=== PATIENT | female | born 1965 ===

== ENCOUNTER 2016-07-02 20:42 | Emergency (ER) | payer SELFPAY ==
[2016-07-02 20:42] VITALS: BMI 21.5
[2016-07-02 21:09] VITALS: BP 132/84; PULSE 63; RESP 16; TEMP 98.2; O2SAT 100
--- NOTE | 2016-07-02 21:28 | ED PDOC ---
Lower Extremity Pain/Injury Time Seen by Provider: 07/02/16 21:15 Chief Complaint (Nursing): Lower Extremity Problem/Injury Chief Complaint (Provider): right knee pain History Per: Patient History/Exam Limitations: no limitations Onset/Duration Of Symptoms: Days (x 1 year ) Current Symptoms Are (Timing): Still Present Additional Complaint(s): Camille Phan is a 50 year old female, with a previous medical history of chronic knee pain, who presents to the ED with complaints of right knee pain intermittently ongoing for the past year. Pt reports to increasing her walking lately through work. Pt denies any trauma to the knee, numbness or weakness. Pt denies any additional complaints. Pt states to taking motrin in the AM today which helped alleviate the symptoms. Pt states last ED visit she received naproxen which she stated helped. PMD: none provided Past Medical History Reviewed: Historical Data, Nursing Documentation, Vital Signs Vital Signs: Last Vital Signs Temp 98.2 F 07/02/16 21:06 Pulse 63 07/02/16 21:06 Resp 16 07/02/16 21:06 BP 132/84 07/02/16 21:06 Pulse Ox 100 07/02/16 21:06 - Medical History PMH: Denies: Arthritis, Asthma, Atrial Fibrillation, CHF, COPD, HIV, HTN, Hypercholesterolemia, Chronic Kidney Disease, Seizures - Surgical History Surgical History: Denies: CABG, Pacemaker - Family History Family History: States: Unknown Family Hx Denies: CAD - Home Medications Home Medications: Ambulatory Orders Medication Instructions Recorded Diclofenac 50 mg PO Q8 05/01/16 Metoprolol Succinate [Toprol XL] 25 mg PO DAILY #30 tab 05/03/16 Naproxen [Naprosyn Tab] 375 mg PO Q8 PRN #15 tab 07/02/16 Tramadol HCl [Ultram] 50 mg PO Q6 PRN #6 tablet 07/02/16 - Allergies Allergies/Adverse Reactions: Allergies Allergy/AdvReac Type Severity Reaction Status Date / Time No Known Allergies Allergy Verified 07/02/16 21:06 Review of Systems ROS Statement: Except As Marked, All Systems Reviewed And Found Negative Musculoskeletal: Positive for: Leg Pain (right knee pain ) Neurological: Negative for: Numbness, Other (tingling ) Physical Exam - Reviewed Nursing Documentation Reviewed: Yes Vital Signs Reviewed: Yes - Physical Exam Appears: Positive for: Well, Non-toxic, No Acute Distress Extremity: Positive for: Normal ROM, Capillary Refill (< 2 seconds ), Other ( mild effusion noted of the right knee ). Negative for: Calf Tenderness, Deformity (or ecchymosis ) Neurologic/Psych: Positive for: Alert, Oriented - ECG O2 Sat by Pulse Oximetry: 100 (RA) Pulse Ox Interpretation: Normal Medical Decision Making Medical Decision Making: Initial Impression: arthritis Initial Plan: * toradol * reevaluation Scribe Attestation: Documented by Oanh Santillan, acting as a scribe for Quincy Wang PA-C. Provider Scribe Attestation: All medical record entries made by the Scribe were at my direction and personally dictated by me. I have reviewed the chart and agree that the record accurately reflects my personal performance of the history, physical exam, medical decision making, and the department course for this patient. I have also personally directed, reviewed, and agree with the discharge instructions and disposition. Disposition - Clinical Impression Clinical Impression: Arthralgia of knee - Patient ED Disposition Is Patient to be Admitted: No - Disposition Disposition: Routine/Home Disposition Time: 21:55 Condition: FAIR Prescriptions: Naproxen [Naprosyn Tab] 375 mg PO Q8 PRN #15 tab PRN Reason: Pain, Moderate (4-7) Tramadol HCl [Ultram] 50 mg PO Q6 PRN #6 tablet PRN Reason: Pain, Severe (8-10) Instructions: Arthritis (ED) Forms: [facility] ED School/Work Excuse Print Language: BELGIAN
== END 2016-07-02 22:31 | disposition home or self-care (01) ==
LOC: H.ER 20:42
DX: M25.561 Pain in right knee (principal)

== ENCOUNTER 2016-08-16 10:14 | Inpatient (IN) | payer SELFPAY ==
[2016-08-16 10:23] VITALS: BMI 36.6
--- NOTE | 2016-08-16 11:03 | ED PDOC ---
HPI: Abdomen Time Seen by Provider: 08/16/16 10:38 Chief Complaint (Nursing): Abdominal Pain Chief Complaint (Provider): abdominal pain History Per: Patient History/Exam Limitations: no limitations Location Of Pain/Discomfort: Suprapubic Quality Of Discomfort: Burning Associated Symptoms: Urinary Symptoms. denies: Nausea, Vomiting, Diarrhea, Back Pain Exacerbating Factors: None Alleviating Factors: None Additional Complaint(s): 50yo female c/o lower central abdominal pain for a week, associated with urinary urgency and dysuria, denies fever, back pain or N/V/D. Past Medical History Reviewed: Historical Data, Nursing Documentation, Vital Signs Vital Signs: Last Vital Signs Temp 97.7 F 08/19/16 07:30 Pulse 68 08/19/16 09:03 Resp 18 08/19/16 07:30 BP 131/81 08/19/16 09:03 Pulse Ox 98 08/19/16 07:30 - Medical History PMH: Cardia Arrhythmia Denies: Arthritis, Asthma, Atrial Fibrillation, CHF, COPD, HIV, HTN, Hypercholesterolemia, Chronic Kidney Disease, Seizures - Surgical History Surgical History: Denies: CABG, Pacemaker - Family History Family History: States: Unknown Family Hx Denies: CAD - Home Medications Home Medications: Ambulatory Orders Medication Instructions Recorded Metoprolol Succinate [Toprol XL] 25 mg PO DAILY #30 tab 05/03/16 Ciprofloxacin [Cipro] 500 mg PO Q12 #14 tab 08/19/16 Metronidazole [Flagyl] 500 mg PO Q8 #21 tablet 08/19/16 - Allergies Allergies/Adverse Reactions: Allergies Allergy/AdvReac Type Severity Reaction Status Date / Time No Known Allergies Allergy Verified 08/16/16 10:43 Review of Systems ROS Statement: Except As Marked, All Systems Reviewed And Found Negative Respiratory: Negative for: Cough, Shortness of Breath Gastrointestinal: Positive for: Abdominal Pain. Negative for: Vomiting Genitourinary Female: Positive for: Dysuria, Frequency. Negative for: Vaginal Bleeding Musculoskeletal: Negative for: Neck Pain, Arm Pain Skin: Negative for: Rash, Lesions, Jaundice Neurological: Negative for: Weakness, Numbness, Headache Physical Exam - Reviewed Nursing Documentation Reviewed: Yes Vital Signs Reviewed: Yes - Physical Exam Appears: Positive for: Well, Non-toxic, No Acute Distress Head Exam: Positive for: ATRAUMATIC, NORMAL INSPECTION, NORMOCEPHALIC Skin: Positive for: Normal Color, Warm, DRY Eye Exam: Positive for: EOMI, Normal appearance, PERRL ENT: Positive for: Normal ENT Inspection Neck: Positive for: Normal, Painless ROM Cardiovascular/Chest: Positive for: Regular Rate, Rhythm Respiratory: Positive for: CNT, Normal Breath Sounds Gastrointestinal/Abdominal: Positive for: Bowel Sounds, Soft, Tenderness (mild suprapubic tenderness no RLQ or LLQ tenderness) Back: Positive for: Normal Inspection Extremity: Positive for: Normal ROM Neurologic/Psych: Positive for: Alert, Oriented. Negative for: Motor/Sensory Deficits - Laboratory Results Result Diagrams: 08/19/16 06:30 08/18/16 05:30 - ECG O2 Sat by Pulse Oximetry: 97 Pulse Ox Interpretation: Normal Medical Decision Making Medical Decision Making: Denies hx DM. Check UA/Ucx. US did not demonstrate significant infection thus labs and imaging initiated. Disposition - Clinical Impression Clinical Impression: Diverticulitis - Disposition Disposition Time: 19:00 Condition: STABLE Patient Signed Over To: Breezy Sanchez Handoff Comments: pending CT abd pelv and dispo
[2016-08-16 11:52] LABS: RBC URINE 5 /hpf (0-3); URINE BACTERIA RARE (<OCC); URINE BILIRUBIN NEGATIVE (NEGATIVE); URINE BLOOD NEGATIVE (NEGATIVE); URINE COLOR YELLOW (YELLOW); URINE GLUCOSE (UA) NEG (Normal); URINE KETONE NEGATIVE (NEGATIVE); URINE LEUKOCYTE ESTERASE TRACE Leu/uL (Negative); URINE PROTEIN NEGATIVE (NEGATIVE); URINE UROBILINOGEN 0.2-1.0 mg/dL (0.2-1.0); WBC URINE 1 /hpf (0-5)
[2016-08-16 13:02] LABS: BASO % 0.3 % (0.0-2.0); EOS # 0.6 K/uL (0.0-0.7); EOS % 4.3 % (0.0-4.0); HEMATOCRIT 39.2 % (34.0-47.0); LYMPH # 2.3 K/uL (1.0-4.3); MEAN CELL VOLUME 90.3 fl (81.0-99.0); MEAN CORPUSCULAR HEMOGLOBIN 29.9 pg (27.0-31.0); MEAN CORPUSCULAR HGB CONC 33.1 g/dL (33.0-37.0); MEAN PLATELET VOLUME 7.9 fl (7.2-11.7); MONO # 1.1 K/uL (0.0-0.8); MONO % 7.9 % (0.0-10.0); NEUT # 9.6 K/uL (1.8-7.0); NEUT % 70.5 % (50.0-75.0); NRBC % 0.1 % (0.0-0.0); RED CELL DISTRIBUTION WIDTH 13.4 % (11.5-14.5); WHITE BLOOD COUNT 13.6 K/uL (4.8-10.8)
[2016-08-16 13:12] LABS: ALKALINE PHOSPHATASE 144 U/L (38-126); ALT/SGPT 54 U/L (9-52); AST/SGOT 40 U/L (14-36); BILIRUBIN,TOTAL 0.3 mg/dl (0.2-1.3); BLOOD UREA NITROGEN 15 mg/dl (7-17); CALCIUM 9.2 mg/dL (8.4-10.2); CARBON DIOXIDE 25 mmol/L (22-30); CHLORIDE 107 mmol/L (98-107); GFR AFRICAN-AMERICAN > 60; GLUCOSE,RANDOM 123 mg/dL (65-105); POTASSIUM 4.1 MMOL/L (3.6-5.0); SODIUM 142 mmol/l (132-148); TOTAL PROTEIN 8.1 G/DL (6.3-8.2)
[2016-08-16] MEDS ORDERED: Sodium Chloride 0.9% 1,000 ML IV STA (16:30)
--- NOTE | 2016-08-16 16:58 | US ---
PROCEDURE: Pelvic ultrasound dated 08/16/2016. HISTORY: pelvic pain COMPARISON: Comparison made with prior study dated 12/18/2015. TECHNIQUE: Transabdominal/transvaginal sonographic evaluation of the pelvis performed. FINDINGS: The uterus is anteverted measuring approximately 4.7 x 3.7 x 2.1 cm. No myometrial masses. Endometrial stripe measures 3.6 mm. There is a hyperechoic focus within the endometrium that measures 1.1 x 0.61 x 0.23 cm of uncertain etiology though does not demonstrate any discernible Doppler flow. While this could represent residual clot if patient is currently menstruating, other possibilities including endometrial polyp, endometrial hyperplasia versus endometrial carcinoma should be excluded. . There may also be a small amount of endometrial fluid within the fundal aspect of the endometrial canal Clinical correlation recommended. INFORMATION SYSTEMS ADMINISTRATOR consultation also suggested. Few small of cervical nabothian cysts are present. No gross free fluid seen in the cul de sac. Neither ovary visualized on this study. IMPRESSION: Elliptical shaped echogenic focus within the endometrial canal of uncertain etiology. This could represent clot if patient is currently menstruating however possibility of endometrial hyperplasia, endometrial polyp or endometrial carcinoma to be excluded. Clinical correlation recommended. . Trench Pipe Layer Helper consultation is recommended
[2016-08-16] MEDS ORDERED: Sodium Chloride 0.9% 50 ML IV ONE (17:19)
[2016-08-16] MEDS ORDERED: Iohexol 300 100 ML IJ ONE (17:19)
--- NOTE | 2016-08-16 19:41 | CT ---
EXAM: CT Abdomen and Pelvis With Intravenous Contrast CLINICAL HISTORY: 50 years old, female; Pain; Abdominal pain; Generalized; Additional info: Lower abd pain, leukocytosis TECHNIQUE: Axial computed tomography images of the abdomen and pelvis with intravenous contrast. This CT exam was performed using one or more of the following dose reduction techniques: automated exposure control, adjustment of the mA and/or kV according to patient size, and/or use of iterative reconstruction technique. Coronal and sagittal reformatted images were created and reviewed. CONTRAST: 95 mL of omnipaque 300 administered intravenously. EXAM DATE/TIME: 08/16/2016 4:30 PM COMPARISON: There are no prior studies for comparison. FINDINGS: Lower thorax: The heart is mildly enlarged. There is atelectasis at the lung bases. There is fibrosis and scarring in the right middle lobe. There is a small hiatal hernia. ABDOMEN: Liver: There is fatty infiltration of the liver. The liver is enlarged. Gallbladder and bile ducts: unremarkable Pancreas: Pancreas is mildly atrophic Spleen: unremarkable Adrenals: unremarkable Kidneys and ureters: There is a left renal cyst. 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 There is a low attenuation right renal lesion too small to characterize. Right kidney is otherwise unremarkable. There is no pelvocaliectasis or ureterectasis. Stomach and bowel: Stomach is incompletely distended. Rotation is normal. There is no small bowel obstruction. Terminal ileum is unremarkable.Colon is incompletely distended which limits evaluation. Motion and streak limit evaluation of the colon. There is diverticulosis. There is sigmoid diverticulitis. There is a 2 x 1.5 x 2 cm low attenuation lesion in the sigmoid wall with mild peripheral enhancement. Appendix: See stomach and bowel PELVIS: Bladder: unremarkable Reproductive: Uterus and adnexal structures are unremarkable. ABDOMEN and PELVIS: Intraperitoneal space: There is no free air. There is edema and fluid in the midline of the pelvis and left lower quadrant. Bones/joints: There are degenerative changes in the osseus structures. There is a bone island in L2. Soft tissues: There is a tiny fat containing umbilical hernia Vasculature: There are calcified phleboliths. Vascular structures are unremarkable. Lymph nodes: unremarkable IMPRESSION: Sigmoid diverticulitis with intramural abscess, no free air; enlarged fatty liver Additional findings as described above.
[2016-08-16] MEDS ORDERED: metroNIDAZOLE 500mg/100ml NS 100 ML IVPB STA (19:48)
[2016-08-16] MEDS ORDERED: Ciprofloxacin 400mg/200ml D5W 400 MG/200 ML BAG IV STA (19:48)
[2016-08-16] MEDS ORDERED: metroNIDAZOLE 500mg/100ml NS 100 ML IVPB ONE (20:09)
--- NOTE | 2016-08-16 20:12 | ED PDOC ---
- Laboratory Results Result Diagrams: 08/16/16 12:30 08/16/16 12:30 - ECG O2 Sat by Pulse Oximetry: 97 (RA) Pulse Ox Interpretation: Normal - CT Scan/US CT Abdomen & Pelvis w/ IV Contrast Other Rad Studies (CT/US): Interpreted By Me, Read By Radiologist, Radiology Report Reviewed Medical Decision Making Medical Decision Makin:00 Patient transferred over to provider from Dr. Baker. Pending CT Abdomen & Pelvis. 19:41 CT Abdomen & Pelvis w/ IV Contrast FINDINGS: Lower thorax: The heart is mildly enlarged. There is atelectasis at the lung bases. There is fibrosis and scarring in the right middle lobe. There is a small hiatal hernia. ABDOMEN: Liver: There is fatty infiltration of the liver. The liver is enlarged. Gallbladder and bile ducts: Unremarkable. Pancreas: Pancreas is mildly atrophic. Spleen: Unremarkable. Adrenals: Unremarkable. Kidneys and ureters: There is a left renal cyst. 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 There is a low attenuation right renal lesion too small to characterize. Right kidney is otherwise unremarkable. There is no pelvocaliectasis or ureterectasis. Stomach and bowel: Stomach is incompletely distended. Rotation is normal. There is no small bowel obstruction. Terminal ileum is unremarkable. Colon is incompletely distended which limits evaluation. Motion and streak limit evaluation of the colon. There is diverticulosis. There is sigmoid diverticulitis. There is a 2 x 1.5 x 2 cm low attenuation lesion in the sigmoid wall with mild peripheral enhancement. Appendix: See stomach and bowel. PELVIS: Bladder: Unremarkable. Reproductive: Uterus and adnexal structures are unremarkable. ABDOMEN and PELVIS: Intraperitoneal space: There is no free air. There is edema and fluid in the midline of the pelvis and left lower quadrant. Bones/joints: There are degenerative changes in the osseus structures. There is a bone island in L2. Soft tissues: There is a tiny fat containing umbilical hernia. Vasculature: There are calcified phleboliths. Vascular structures are unremarkable. Lymph nodes: Unremarkable. IMPRESSION: Sigmoid diverticulitis with intramural abscess, no free air; enlarged fatty liver. Additional findings as described above. Initial Plan: * Lact Acid, Plasma * Cipro 400 mg/200 ml DSW * Flagyl 500 mg/100 ml NS * Blood Culture * Reevaluation 19:56 Upon provider reevaluation, patient requires further treatment in the emergency department at this time. Patient will be admit and worked up for diverticulitis. Lact acid, plasma and a blood culture was ordered, along with a prescription for Cipro and Flagyl. Counseling was provided and all questions were answered regarding studies performed and diagnosis. Patient is in agreement with provider's plan. Clinical Impression: Diverticulitis 22:50 Spoke to surgical technologist, Dr. Park, for surgical consultation. Scribe Attestation: Documented by Sebastian Marks, acting as a scribe for Breezy Sanchez MD. Provider Scribe Attestation: All medical record entries made by the Scribe were at my direction and personally dictated by me. I have reviewed the chart and agree that the record accurately reflects my personal performance of the history, physical exam, medical decision making, and the department course for this patient. I have also personally directed, reviewed, and agree with the discharge instructions and disposition. Disposition Discussed With : Donna Huber ([facility] Doctor Will See Patient In The: ED Counseled Patient/Family Regarding: Studies Performed, Diagnosis, Rx Given - Clinical Impression Clinical Impression: Diverticulitis - POA Present On Arrival: None - Disposition Disposition: Admitted as In-Patient Disposition Time: 19:57 Condition: STABLE
--- NOTE | 2016-08-16 20:28 | CP.PCM.HP ---
History of Present Illness - History of Present Illness History of Present Illness: pt is a 50 y/o obese female with pmhx of supraventricular tachycardia (on metroprolol) presenting to ED with complaints of abdominal pain for the past about a week with associated dyusria and frequency. Denies any associated nausea , vomiting, diarrhea, chest pain, sob or dizziness. pt reports pain is mainly focused on her lower portion of her abdomen and does not radiate any where else , its waxes and wanes but does not completely resolve with anything. Denies any fever, but reports feeling chilly now. No other complaints otherwise Present on Admission - Present on Admission Any Indicators Present on Admission: No Review of Systems - Review of Systems All systems: reviewed and no additional remarkable complaints except Review of Systems: per HPI Past Patient History - Past Medical History & Family History Past Medical History?: Yes - Past Social History Smoking Status: Never Smoked - CARDIAC Hx Atrial Fibrillation: No Hx Cardia Arrhythmia: Yes Hx Congestive Heart Failure: No Hx Hypercholesterolemia: No Hx Hypertension: No Hx Pacemaker: No - PULMONARY Hx Asthma: No Hx Chronic Obstructive Pulmonary Disease (COPD): No - NEUROLOGICAL Hx Seizures: No - HEENT Hx HEENT Problems: No - RENAL Hx Chronic Kidney Disease: No - ENDOCRINE/METABOLIC Hx Endocrine Disorders: No - HEMATOLOGICAL/ONCOLOGICAL Hx Human Immunodeficiency Virus (HIV): No - INTEGUMENTARY Hx Dermatological Problems: No - MUSCULOSKELETAL/RHEUMATOLOGICAL Hx Arthritis: No - GASTROINTESTINAL Hx Gastrointestinal Disorders: No - GENITOURINARY/GYNECOLOGICAL Hx Genitourinary Disorders: No - PSYCHIATRIC Hx Substance Use: No - SURGICAL HISTORY Hx Coronary Artery Bypass Graft: No - ANESTHESIA Hx Anesthesia: Yes Hx Anesthesia Reactions: No Meds Allergies/Adverse Reactions: Allergies Allergy/AdvReac Type Severity Reaction Status Date / Time No Known Allergies Allergy Verified 08/16/16 10:43 Physical Exam - Constitutional Appears: Non-toxic, No Acute Distress - Head Exam Head Exam: NORMOCEPHALIC - Eye Exam Eye Exam: Normal appearance, PERRL Pupil Exam: NORMAL ACCOMODATION - ENT Exam ENT Exam: Mucous Membranes Moist - Respiratory Exam Respiratory Exam: Clear to Auscultation Bilateral, NORMAL BREATHING PATTERN. absent: Rhonchi, Wheezes - Cardiovascular Exam Cardiovascular Exam: REGULAR RHYTHM, +S1, +S2 - GI/Abdominal Exam GI & Abdominal Exam: Guarding, Normal Bowel Sounds, Soft, Tenderness. absent: Distended, Pulsatile Mass - Extremities Exam Extremities exam: Negative for: calf tenderness, pedal edema - Back Exam Back exam: absent: CVA tenderness (L), CVA tenderness (R) - Neurological Exam Neurological exam: Alert, CN II-XII Intact, Oriented x3 Results - Vital Signs Recent Vital Signs: Last Vital Signs Temp 98.7 F 08/16/16 20:13 Pulse 96 H 08/16/16 20:13 Resp 20 08/16/16 20:13 BP 115/57 L 08/16/16 20:13 Pulse Ox 97 08/16/16 20:27 - Labs Result Diagrams: 08/16/16 12:30 08/16/16 12:30 Assessment & Plan - Assessment and Plan (Free Text) Assessment: Pt is a 50 y/o female with history of PSVT being admitted for acute diverticulitis, first episode. does not have a previous history of diverticulosis Plan: Acute Sigmoid Diverticulitis CT scan shows evidence of sigmoid diverticulitis as well as 2 x1.5X2cm enhancing lesion in the sigmoid wall for which radiologist suspect is an abscess in sigmoid wall If no improved in pt sympotms in 48hours recommend surgery vs GI consult Currently on Cipro plus Flagyl antibiotic Zofran for nausea tylenol for fever pain management as ordered f/u blood and urine culture f/u Am labs 2. PSVT resumed home medication: metroprolol 25mg daily 3. Diet- heart healthy 5. DVT prophylaxis- Lovenox 40mg SC
[2016-08-16] MEDS ORDERED: Ciprofloxacin 400mg/200ml D5W 400 MG/200 ML BAG IVPB ONE (21:18)
[2016-08-16] MEDS: metroNIDAZOLE 500mg/100ml NS 100 ML IVPB SCH (21:35)
[2016-08-16] MEDS: Ciprofloxacin 400mg/200ml D5W 400 MG/200 ML BAG IVPB SCH (21:35)
--- NOTE | 2016-08-16 23:35 | CP.PCM.CON ---
<Amisha Park - Last Filed: 08/16/16 23:30> History of Present Illness - History of Present Illness History of Present Illness: General Surgery - Dr. Torres Consult Re: Diverticulitis 50 F w/ hx of SVT presenting w/ suprapubic abdominal pain x1week. Pt states the pain began approx 1 week ago, located in the suprapubic region, non- radiating, 12/01. She states the pain is worse with ambulation and when she urinates. She also admits to Fevers at home but states she did not take her temperature, currently pt. complains of chills. Pt denies any N/V, SOB/CP, Hematuria, Hematochezia. She has been eating normal and having regular BMs. Pt states this is the first time she's ever experienced this pain. PMH: SVT PSH: x2 Meds: Metoprolol NKDA Pt was seen in the ED. Vitals WNL. Labs w/ WBC of 13.6, slight elevation of LFTs. CT abd/pelv shows acute sigmoid diverticulitis w/ 2x1.5x2cm intramural abscess. No free air or ascites. Review of Systems - Review of Systems All systems: reviewed and no additional remarkable complaints except (as per HPI ) Past Patient History - Past Medical History & Family History Past Medical History?: Yes - Past Social History Smoking Status: Never Smoked - CARDIAC Hx Atrial Fibrillation: No Hx Cardia Arrhythmia: Yes Hx Congestive Heart Failure: No Hx Hypercholesterolemia: No Hx Hypertension: No Hx Pacemaker: No - PULMONARY Hx Asthma: No Hx Chronic Obstructive Pulmonary Disease (COPD): No - NEUROLOGICAL Hx Seizures: No - HEENT Hx HEENT Problems: No - RENAL Hx Chronic Kidney Disease: No - ENDOCRINE/METABOLIC Hx Endocrine Disorders: No - HEMATOLOGICAL/ONCOLOGICAL Hx Human Immunodeficiency Virus (HIV): No - INTEGUMENTARY Hx Dermatological Problems: No - MUSCULOSKELETAL/RHEUMATOLOGICAL Hx Arthritis: No - GASTROINTESTINAL Hx Gastrointestinal Disorders: No - GENITOURINARY/GYNECOLOGICAL Hx Genitourinary Disorders: No - PSYCHIATRIC Hx Substance Use: No - SURGICAL HISTORY Hx Coronary Artery Bypass Graft: No - ANESTHESIA Hx Anesthesia: Yes Hx Anesthesia Reactions: No Meds Allergies/Adverse Reactions: Allergies Allergy/AdvReac Type Severity Reaction Status Date / Time No Known Allergies Allergy Verified 08/16/16 10:43 - Medications Medications: Current Medications Acetaminophen (Tylenol 325mg Tab) 650 mg PO Q6 PRN PRN Reason: Fever >100.4 F Enoxaparin Sodium (Lovenox) 40 mg SC DAILY [facility] PRN Reason: Protocol Metronidazole (Flagyl 500mg/100ml Ns) 100 mls @ 100 mls/hr IVPB Q12 [facility] Last Admin: 08/16/16 21:35 Dose: Not Given Ciprofloxacin (Cipro 400mg/200ml Dsw) 400 mg in 200 mls @ 200 mls/hr IVPB Q12 [facility] Last Admin: 08/16/16 21:35 Dose: Not Given Sodium Chloride (Sodium Chloride 0.9%) 1,000 mls @ 125 mls/hr IV .Q8H [facility] Stop: 08/17/16 23:19 Ketorolac Tromethamine (Toradol) 15 mg IVP Q6 PRN PRN Reason: Pain, moderate (4-7) Metoprolol Succinate (Toprol Xl) 25 mg PO DAILY [facility] Morphine Sulfate (Morphine) 4 mg IVP Q6 PRN PRN Reason: Pain, severe (8-10) Ondansetron HCl (Zofran Inj) 4 mg IVP Q6 PRN PRN Reason: Nausea/Vomiting Physical Exam - Constitutional Appears: No Acute Distress - Head Exam Head Exam: ATRAUMATIC, NORMAL INSPECTION, NORMOCEPHALIC - Eye Exam Eye Exam: Normal appearance - ENT Exam ENT Exam: Mucous Membranes Moist - Respiratory Exam Respiratory Exam: NORMAL BREATHING PATTERN. absent: Respiratory Distress - Cardiovascular Exam Cardiovascular Exam: REGULAR RHYTHM - GI/Abdominal Exam GI & Abdominal Exam: Guarding (localized), Soft, Tenderness (Localized TTP in suprapubic and LLQ). absent: Distended, Firm, Hernia, Rigid - Neurological Exam Neurological exam: Alert, Oriented x3 - Psychiatric Exam Psychiatric exam: Normal Affect, Normal Mood - Skin Skin Exam: Dry, Intact Results - Vital Signs Recent Vital Signs: Last Vital Signs Temp 98.7 F 08/16/16 20:13 Pulse 96 H 08/16/16 20:13 Resp 20 08/16/16 20:13 BP 115/57 L 08/16/16 20:13 Pulse Ox 97 08/16/16 22:55 - Labs Result Diagrams: 08/16/16 12:30 08/16/16 12:30 Labs: Laboratory Results - last 24 hr 08/16/16 20:00 Lactic Acid 1.3 - Imaging and Cardiology CT scan - abdomen Status: Image reviewed by me, Report reviewed by me Assessment & Plan - Assessment and Plan (Free Text) Assessment: 50 F w/ Acute diverticulitis w/ intramural abscess -Maintain NPO for now -IVF -IV Abx: Cipro/Flagyl -Pain control prn -Recc GI consult as pt will need colonoscopy in future -No surgical intervention at this time -Will follow JIMMY Park PGY2 <Bernardo Torres - Last Filed: 08/19/16 19:07> Results - Vital Signs Recent Vital Signs: Last Vital Signs Temp 97.7 F 08/19/16 07:30 Pulse 68 08/19/16 09:03 Resp 18 08/19/16 07:30 BP 131/81 08/19/16 09:03 Pulse Ox 98 08/19/16 07:30 - Labs Result Diagrams: 08/19/16 06:30 08/18/16 05:30 Labs: Laboratory Results - last 24 hr 08/19/16 06:30 WBC 10.3 RBC 4.40 Hgb 12.9 Hct 39.7 MCV 90.2 MCH 29.3 MCHC 32.5 L RDW 12.8 Plt Count 383 MPV 7.7 Neut % (Auto) 62.0 Lymph % (Auto) 25.5 [place] % (Auto) 7.2 Eos % (Auto) 5.2 H Baso % (Auto) 0.1 Neut # 6.4 Lymph # 2.6 [place] # 0.7 Eos # 0.5 Baso # 0.0 Attending/Attestation - Attestation I have personally seen and examined this patient.: Yes I have fully participated in the care of the patient.: Yes I have reviewed all pertinent clinical information: Yes Notes (Text): 08/19/16 19:06 Pt was seen and examined at bedside on 08/17/16 Agree with above note and assessment Pt with Diverticulitis with Intramural abscess C/w IV antibiotics Serial Abdominal exam Plan d.w pt in detail. C.w current mx
[2016-08-17] MEDS: Sodium Chloride 0.9% 1,000 ML IV SCH ×2 (00:15→09:26)
[2016-08-17 07:49] LABS: BASO % 0.2 % (0.0-2.0); EOS # 0.5 K/uL (0.0-0.7); HEMATOCRIT 36.3 % (34.0-47.0); LYMPH # 2.2 K/uL (1.0-4.3); LYMPH % 18.1 % (20.0-40.0); MEAN CELL VOLUME 89.7 fl (81.0-99.0); MEAN CORPUSCULAR HEMOGLOBIN 29.5 pg (27.0-31.0); MEAN CORPUSCULAR HGB CONC 32.9 g/dL (33.0-37.0); MEAN PLATELET VOLUME 8.1 fl (7.2-11.7); MONO # 1.1 K/uL (0.0-0.8); MONO % 9.4 % (0.0-10.0); NEUT # 8.3 K/uL (1.8-7.0); NEUT % 68.3 % (50.0-75.0); RED CELL DISTRIBUTION WIDTH 13.2 % (11.5-14.5); WHITE BLOOD COUNT 12.2 K/uL (4.8-10.8)
[2016-08-17 08:27] LABS: ALKALINE PHOSPHATASE 111 U/L (38-126); ALT/SGPT 45 U/L (9-52); AST/SGOT 28 U/L (14-36); BILIRUBIN,TOTAL 0.5 mg/dl (0.2-1.3); BLOOD UREA NITROGEN 9 mg/dl (7-17); CALCIUM 8.3 mg/dL (8.4-10.2); CARBON DIOXIDE 24 mmol/L (22-30); CHLORIDE 106 mmol/L (98-107); GFR AFRICAN-AMERICAN > 60; GLUCOSE,RANDOM 129 mg/dL (65-105); POTASSIUM 3.6 MMOL/L (3.6-5.0); SODIUM 140 mmol/l (132-148); TOTAL PROTEIN 7.1 G/DL (6.3-8.2)
[2016-08-17] MEDS: Enoxaparin 40 mg Syringe SC SCH (09:26)
[2016-08-17] MEDS: Metoprolol Succinate 25 mg XL Tab PO SCH (09:26)
[2016-08-17] MEDS: metroNIDAZOLE 500mg/100ml NS 100 ML IVPB SCH ×2 (10:07→21:56)
[2016-08-17] MEDS: Ciprofloxacin 400mg/200ml D5W 400 MG/200 ML BAG IVPB SCH ×2 (10:07→20:45)
--- NOTE | 2016-08-17 14:16 | CP.PCM.PN ---
Subjective - Date & Time of Evaluation Date of Evaluation: 08/17/16 Time of Evaluation: 10:35 - Subjective Subjective: Patient seen and examined at bedside, no acute distress at this time, admitted last night w/ diagnosis of acute diverticulitis. Abdominal pain is improving as per pt, no vomiting or diarrheas while in hospital. Afebrile, + dysuria. ROS: Denies: CP, SOB, palpitations, dizziness. Objective - Vital Signs/Intake and Output Vital Signs (last 24 hours): Temp Pulse Resp BP Pulse Ox 98.3 F 74 18 101/64 96 08/17/16 12:39 08/17/16 12:39 08/17/16 12:39 08/17/16 12:39 08/17/16 12:39 - Medications Medications: Current Medications Acetaminophen (Tylenol 325mg Tab) 650 mg PO Q6 PRN PRN Reason: Fever >100.4 F Enoxaparin Sodium (Lovenox) 40 mg SC DAILY [facility] PRN Reason: Protocol Last Admin: 08/17/16 09:26 Dose: 40 mg Metronidazole (Flagyl 500mg/100ml Ns) 100 mls @ 100 mls/hr IVPB Q12 [facility] Last Admin: 08/17/16 10:07 Dose: 100 mls/hr Ciprofloxacin (Cipro 400mg/200ml Dsw) 400 mg in 200 mls @ 200 mls/hr IVPB Q12 [facility] Last Admin: 08/17/16 10:07 Dose: 200 mls/hr Sodium Chloride (Sodium Chloride 0.9%) 1,000 mls @ 125 mls/hr IV .Q8H [facility] Stop: 08/17/16 23:19 Last Admin: 08/17/16 09:26 Dose: 125 mls/hr Ketorolac Tromethamine (Toradol) 15 mg IVP Q6 PRN PRN Reason: Pain, moderate (4-7) Metoprolol Succinate (Toprol Xl) 25 mg PO DAILY [facility] Last Admin: 08/17/16 09:26 Dose: 25 mg Morphine Sulfate (Morphine) 4 mg IVP Q6 PRN PRN Reason: Pain, severe (8-10) Ondansetron HCl (Zofran Inj) 4 mg IVP Q6 PRN PRN Reason: Nausea/Vomiting - Labs Labs: 08/17/16 06:30 08/17/16 06:30 - Constitutional Appears: No Acute Distress - Head Exam Head Exam: ATRAUMATIC, NORMOCEPHALIC - Eye Exam Eye Exam: PERRL - ENT Exam ENT Exam: Mucous Membranes Moist - Respiratory Exam Respiratory Exam: Clear to Ausculation Bilateral. absent: Rhonchi, Wheezes - Cardiovascular Exam Cardiovascular Exam: RRR, +S1, +S2 - GI/Abdominal Exam GI & Abdominal Exam: Soft, Tenderness (mild tenderness in lower abdomen (mostly in suprapubic area)), Normal Bowel Sounds. absent: Distended, Guarding, Rigid - Extremities Exam Extremities Exam: absent: Calf Tenderness, Pedal Edema - Neurological Exam Neurological Exam: Alert, Oriented x3 - Psychiatric Exam Psychiatric exam: Normal Affect, Normal Mood - Skin Skin Exam: Dry, Normal Color, Warm Assessment and Plan - Assessment and Plan (Free Text) Plan: 50 y/o female with history of PSVT being admitted for acute diverticulitis. Acute Diverticulitis CT scan shows evidence of sigmoid diverticulitis as well as 2 x1.5X2cm enhancing lesion in the sigmoid wall for which radiologist suspect is an abscess in sigmoid wall clinically improving abdominal pain subsiding, afebrile will transfer pt to Med/surg wbc trending down (13.6---12.2) c/w Cipro plus Flagyl ( day #2) pain management as ordered f/u blood and urine culture f/u Am labs surgery on board. will advance diet. Hx of PSVT well controlled. c/w home medication: metroprolol 25mg daily DVT prophylaxis SCD Lovenox 40 mg SC daily.
[2016-08-18 00:44] VITALS: RESP 18
[2016-08-18 08:07] LABS: BASO % 0.3 % (0.0-2.0); EOS # 0.7 K/uL (0.0-0.7); EOS % 8.6 % (0.0-4.0); HEMATOCRIT 37.6 % (34.0-47.0); LYMPH # 2.1 K/uL (1.0-4.3); LYMPH % 24.9 % (20.0-40.0); MEAN CELL VOLUME 90.7 fl (81.0-99.0); MEAN CORPUSCULAR HEMOGLOBIN 29.4 pg (27.0-31.0); MEAN CORPUSCULAR HGB CONC 32.4 g/dL (33.0-37.0); MEAN PLATELET VOLUME 7.4 fl (7.2-11.7); MONO # 0.8 K/uL (0.0-0.8); MONO % 9.3 % (0.0-10.0); NEUT # 4.8 K/uL (1.8-7.0); NEUT % 56.9 % (50.0-75.0); RED CELL DISTRIBUTION WIDTH 12.9 % (11.5-14.5); WHITE BLOOD COUNT 8.5 K/uL (4.8-10.8)
[2016-08-18 08:27] LABS: CARBON DIOXIDE 25 mmol/L (22-30); GFR AFRICAN-AMERICAN > 60; TOTAL PROTEIN 7.1 G/DL (6.3-8.2)
[2016-08-18 08:53] LABS: ALKALINE PHOSPHATASE 98 U/L (38-126); ALT/SGPT 44 U/L (9-52); AST/SGOT 33 U/L (14-36); BILIRUBIN,TOTAL 0.4 mg/dl (0.2-1.3); BLOOD UREA NITROGEN 9 mg/dl (7-17); CALCIUM 8.6 mg/dL (8.4-10.2); CHLORIDE 108 mmol/L (98-107); GLUCOSE,RANDOM 110 mg/dL (65-105); POTASSIUM 4.1 MMOL/L (3.6-5.0); SODIUM 144 mmol/l (132-148)
[2016-08-18] MEDS: metroNIDAZOLE 500mg/100ml NS 100 ML IVPB SCH ×2 (09:15→20:14)
[2016-08-18] MEDS: Ciprofloxacin 400mg/200ml D5W 400 MG/200 ML BAG IVPB SCH ×2 (09:16→21:53)
[2016-08-18] MEDS: Metoprolol Succinate 25 mg XL Tab PO SCH (09:17)
[2016-08-18] MEDS: Enoxaparin 40 mg Syringe SC SCH (09:17)
--- NOTE | 2016-08-18 11:17 | CP.PCM.PN ---
<Sly Dias - Last Filed: 08/18/16 11:17> Subjective - Date & Time of Evaluation Date of Evaluation: 08/18/16 Time of Evaluation: 11:16 - Subjective Subjective: SURGERY PROGRESS NOTE FOR DR. TORRES 50F seen and examined at bedside. Patient denies pain, denies nausea, vomiting. She is tolerating liquid diet. Objective - Vital Signs/Intake and Output Vital Signs (last 24 hours): Temp Pulse Resp BP Pulse Ox 98.1 F 84 18 109/69 94 L 08/18/16 07:32 08/18/16 09:17 08/18/16 07:32 08/18/16 09:17 08/18/16 07:32 - Medications Medications: Current Medications Acetaminophen (Tylenol 325mg Tab) 650 mg PO Q6 PRN PRN Reason: Fever >100.4 F Enoxaparin Sodium (Lovenox) 40 mg SC DAILY [facility] PRN Reason: Protocol Last Admin: 08/18/16 09:17 Dose: 40 mg Metronidazole (Flagyl 500mg/100ml Ns) 100 mls @ 100 mls/hr IVPB Q12 [facility] Last Admin: 08/18/16 09:15 Dose: 100 mls/hr Ciprofloxacin (Cipro 400mg/200ml Dsw) 400 mg in 200 mls @ 200 mls/hr IVPB Q12 [facility] Last Admin: 08/18/16 09:16 Dose: 200 mls/hr Ketorolac Tromethamine (Toradol) 15 mg IVP Q6 PRN PRN Reason: Pain, moderate (4-7) Metoprolol Succinate (Toprol Xl) 25 mg PO DAILY [facility] Last Admin: 08/18/16 09:17 Dose: 25 mg Morphine Sulfate (Morphine) 4 mg IVP Q6 PRN PRN Reason: Pain, severe (8-10) Ondansetron HCl (Zofran Inj) 4 mg IVP Q6 PRN PRN Reason: Nausea/Vomiting - Labs Labs: 08/18/16 05:30 08/18/16 05:30 - Constitutional Appears: Non-toxic, No Acute Distress - Head Exam Head Exam: ATRAUMATIC - ENT Exam ENT Exam: Mucous Membranes Moist - Respiratory Exam Respiratory Exam: Clear to Ausculation Bilateral, NORMAL BREATHING PATTERN - Cardiovascular Exam Cardiovascular Exam: REGULAR RHYTHM, +S1, +S2 - GI/Abdominal Exam GI & Abdominal Exam: Soft, Tenderness (mild tenderness on palpation). absent: Distended, Firm, Guarding, Rigid, Rebound - Neurological Exam Neurological Exam: Alert, Awake - Skin Skin Exam: Dry, Intact, Normal Color, Warm Assessment and Plan - Assessment and Plan (Free Text) Assessment: 50 F w/ Acute diverticulitis w/ intramural abscess -ADAT -IV Abx: Cipro/Flagyl -Pain control prn -Recc GI consult as pt will need colonoscopy in future -No surgical intervention at this time -Recommend Repeat CT tomorrow Further recs discuss with Dr. Melissa Dias, PGY1 <Bernardo Torres - Last Filed: 08/19/16 19:17> Objective - Vital Signs/Intake and Output Vital Signs (last 24 hours): Temp Pulse Resp BP Pulse Ox 97.7 F 68 18 131/81 98 08/19/16 07:30 08/19/16 09:03 08/19/16 07:30 08/19/16 09:03 08/19/16 07:30 - Labs Labs: 08/19/16 06:30 08/18/16 05:30 Attending/Attestation - Attestation I have personally seen and examined this patient.: Yes I have fully participated in the care of the patient.: Yes I have reviewed all pertinent clinical information, including history, physical exam and plan: Yes Notes (Text): 08/19/16 19:17 Pt was seen and examined at bedside on 08/18/16 Agree with above note and assessment Pt with Improving Diverticulitis with abscess C/w IV antibiotics Serial Abdominal exam Plan d.w pt in detail. C.w current mx
[2016-08-18] MEDS ORDERED: Iohexol 240 (50 ml) PO ONE ×2 (11:19)
--- NOTE | 2016-08-18 15:26 | CP.PCM.PN ---
Subjective - Date & Time of Evaluation Date of Evaluation: 08/18/16 Time of Evaluation: 10:00 - Subjective Subjective: 50 yo F admitted w/ Acute Diverticulitis. She is feeling better, abdominal pain is improving, tolerating PO liquid diet at this time, no N/V. Afebrile, no diarrheas. ROS: Denies: CP, SOB, calf pain, dizziness. Surgery team following her. Objective - Vital Signs/Intake and Output Vital Signs (last 24 hours): Temp Pulse Resp BP Pulse Ox 98.1 F 84 18 109/69 94 L 08/18/16 07:32 08/18/16 09:17 08/18/16 07:32 08/18/16 09:17 08/18/16 07:32 - Medications Medications: Current Medications Acetaminophen (Tylenol 325mg Tab) 650 mg PO Q6 PRN PRN Reason: Fever >100.4 F Enoxaparin Sodium (Lovenox) 40 mg SC DAILY [facility] PRN Reason: Protocol Last Admin: 08/18/16 09:17 Dose: 40 mg Metronidazole (Flagyl 500mg/100ml Ns) 100 mls @ 100 mls/hr IVPB Q12 [facility] Last Admin: 08/18/16 09:15 Dose: 100 mls/hr Ciprofloxacin (Cipro 400mg/200ml Dsw) 400 mg in 200 mls @ 200 mls/hr IVPB Q12 [facility] Last Admin: 08/18/16 09:16 Dose: 200 mls/hr Ketorolac Tromethamine (Toradol) 15 mg IVP Q6 PRN PRN Reason: Pain, moderate (4-7) Metoprolol Succinate (Toprol Xl) 25 mg PO DAILY [facility] Last Admin: 08/18/16 09:17 Dose: 25 mg Morphine Sulfate (Morphine) 4 mg IVP Q6 PRN PRN Reason: Pain, severe (8-10) Ondansetron HCl (Zofran Inj) 4 mg IVP Q6 PRN PRN Reason: Nausea/Vomiting - Labs Labs: 08/18/16 05:30 08/18/16 05:30 - Additional Findings Additional findings: - Constitutional Appears: No Acute Distress - Head Exam Head Exam: ATRAUMATIC, NORMOCEPHALIC - Eye Exam Eye Exam: PERRL - ENT Exam ENT Exam: Mucous Membranes Moist - Respiratory Exam Respiratory Exam: Clear to Ausculation Bilateral. absent: Rhonchi, Wheezes - Cardiovascular Exam Cardiovascular Exam: RRR, +S1, +S2 - GI/Abdominal Exam GI & Abdominal Exam: Soft, Tenderness (mild tenderness in lower abdomen (mostly in suprapubic area)), Normal Bowel Sounds. absent: Distended, Guarding, Rigid - Extremities Exam Extremities Exam: absent: Calf Tenderness, Pedal Edema - Neurological Exam Neurological Exam: Alert, Oriented x3 - Psychiatric Exam Psychiatric exam: Normal Affect, Normal Mood - Skin Skin Exam: Dry, Normal Color, Warm Assessment and Plan - Assessment and Plan (Free Text) Plan: 50 y/o female with history of PSVT being admitted for acute diverticulitis. Acute Diverticulitis CT scan shows evidence of sigmoid diverticulitis as well as 2 x1.5X2cm enhancing lesion in the sigmoid wall for which radiologist suspect is an abscess in sigmoid wall clinically improving abdominal pain subsiding, afebrile leukocytosis resolved. c/w Cipro plus Flagyl (day #3) pain management as ordered f/u blood and urine culture f/u Am labs surgery on board, Recommend Repeat CT tomorrow will advance diet as tolerated. Hx of PSVT well controlled. c/w home medication: metroprolol 25mg daily DVT prophylaxis SCD Lovenox 40 mg SC daily.
--- NOTE | 2016-08-19 02:07 | CP.PCM.PN ---
<Sly Dias - Last Filed: 08/19/16 02:08> Subjective - Date & Time of Evaluation Date of Evaluation: 08/19/16 Time of Evaluation: 02:05 - Subjective Subjective: SURGERY PROGRESS NOTE FOR DR. TORRES 50F seen and examined at bedside. Patient denies pain, denies nausea/vomiting. Tolerating regular diet. Objective - Vital Signs/Intake and Output Vital Signs (last 24 hours): Temp Pulse Resp BP Pulse Ox 98.2 F 79 18 151/88 H 96 08/18/16 15:49 08/18/16 15:49 08/18/16 15:49 08/18/16 15:49 08/18/16 15:49 - Medications Medications: Current Medications Acetaminophen (Tylenol 325mg Tab) 650 mg PO Q6 PRN PRN Reason: Fever >100.4 F Enoxaparin Sodium (Lovenox) 40 mg SC DAILY [facility] PRN Reason: Protocol Last Admin: 08/18/16 09:17 Dose: 40 mg Metronidazole (Flagyl 500mg/100ml Ns) 100 mls @ 100 mls/hr IVPB Q12 [facility] Last Admin: 08/18/16 20:14 Dose: 100 mls/hr Ciprofloxacin (Cipro 400mg/200ml Dsw) 400 mg in 200 mls @ 200 mls/hr IVPB Q12 [facility] Last Admin: 08/18/16 21:53 Dose: 200 mls/hr Ketorolac Tromethamine (Toradol) 15 mg IVP Q6 PRN PRN Reason: Pain, moderate (4-7) Metoprolol Succinate (Toprol Xl) 25 mg PO DAILY [facility] Last Admin: 08/18/16 09:17 Dose: 25 mg Morphine Sulfate (Morphine) 4 mg IVP Q6 PRN PRN Reason: Pain, severe (8-10) Ondansetron HCl (Zofran Inj) 4 mg IVP Q6 PRN PRN Reason: Nausea/Vomiting - Labs Labs: 08/18/16 05:30 08/18/16 05:30 - Constitutional Appears: Non-toxic, No Acute Distress - Head Exam Head Exam: ATRAUMATIC - Respiratory Exam Respiratory Exam: Clear to Ausculation Bilateral, NORMAL BREATHING PATTERN - Cardiovascular Exam Cardiovascular Exam: REGULAR RHYTHM, +S1, +S2 - GI/Abdominal Exam GI & Abdominal Exam: Soft, Tenderness. absent: Distended, Firm, Guarding, Rigid - Neurological Exam Neurological Exam: Alert, Awake - Skin Skin Exam: Dry, Intact, Normal Color, Warm Assessment and Plan - Assessment and Plan (Free Text) Assessment: 50 F w/ Acute diverticulitis w/ intramural abscess -ADAT -IV Abx: Cipro/Flagyl -Pain control prn -Recommend Repeat CT today Further recs discuss with Dr. Melissa Dias, PGY1 <Bernardo Torres - Last Filed: 08/19/16 19:23> Objective - Vital Signs/Intake and Output Vital Signs (last 24 hours): Temp Pulse Resp BP Pulse Ox 97.7 F 68 18 131/81 98 08/19/16 07:30 08/19/16 09:03 08/19/16 07:30 08/19/16 09:03 08/19/16 07:30 - Labs Labs: 08/19/16 06:30 08/18/16 05:30 Attending/Attestation - Attestation I have personally seen and examined this patient.: Yes I have fully participated in the care of the patient.: Yes I have reviewed all pertinent clinical information, including history, physical exam and plan: Yes Notes (Text): 08/19/16 19:22 Pt was seen and examined at bedside on 08/19/16 Agree with above note and assessment Pt with Resolving Diverticulitis with abscess Repeat CT scan Pt can be DC home with PO antibiotics, If abscess is resolved on CT scan Plan d.w pt and primary team in detail.
[2016-08-19 07:09] LABS: BASO % 0.1 % (0.0-2.0); EOS # 0.5 K/uL (0.0-0.7); EOS % 5.2 % (0.0-4.0); HEMATOCRIT 39.7 % (34.0-47.0); LYMPH # 2.6 K/uL (1.0-4.3); LYMPH % 25.5 % (20.0-40.0); MEAN CELL VOLUME 90.2 fl (81.0-99.0); MEAN CORPUSCULAR HEMOGLOBIN 29.3 pg (27.0-31.0); MEAN CORPUSCULAR HGB CONC 32.5 g/dL (33.0-37.0); MEAN PLATELET VOLUME 7.7 fl (7.2-11.7); MONO # 0.7 K/uL (0.0-0.8); MONO % 7.2 % (0.0-10.0); NEUT # 6.4 K/uL (1.8-7.0); NRBC % 0.1 % (0.0-0.0); RED CELL DISTRIBUTION WIDTH 12.8 % (11.5-14.5); WHITE BLOOD COUNT 10.3 K/uL (4.8-10.8)
[2016-08-19 07:30] VITALS: BP 131/81; PULSE 68; TEMP 97.7
[2016-08-19] MEDS ORDERED: Sodium Chloride 0.9% 50 ML IV ONE (08:56)
[2016-08-19] MEDS ORDERED: Iohexol 300 100 ML IJ ONE (08:56)
[2016-08-19] MEDS: metroNIDAZOLE 500mg/100ml NS 100 ML IVPB SCH (09:01)
[2016-08-19] MEDS: Ciprofloxacin 400mg/200ml D5W 400 MG/200 ML BAG IVPB SCH (09:01)
[2016-08-19] MEDS: Enoxaparin 40 mg Syringe SC SCH (09:02)
[2016-08-19] MEDS: Metoprolol Succinate 25 mg XL Tab PO SCH (09:03)
--- NOTE | 2016-08-19 11:24 | CT ---
PROCEDURE: CT Abdomen and Pelvis with contrast HISTORY: compare recent Micro perf CT COMPARISON: 08/16/2016 TECHNIQUE: Contrast dose: 95 cc Radiation dose: Total exam DLP = 1048.65 mGy-cm. This CT exam was performed using one or more of the following dose reduction techniques: Automated exposure control, adjustment of the mA and/or kV according to patient size, and/or use of iterative reconstruction technique. FINDINGS: LOWER THORAX: Bronchiectasis, scaring and architectural distortion involving the right middle lobe. Otherwise minimal atelectatic changes in the lung bases. The heart is not enlarged. There is no significant pericardial effusion. LIVER: Hepatic steatosis. GALLBLADDER AND BILE DUCTS: Gallbladder is mildly distended. Echogenic sludge seen in the dependent aspect. No intra or extrahepatic biliary dilatation. PANCREAS: Unremarkable. No gross lesion or ductal dilatation. SPLEEN: Unremarkable. ADRENALS: Unremarkable. No mass. KIDNEYS AND URETERS: Unremarkable. No hydronephrosis. No solid mass. VASCULATURE: Unremarkable. No aortic aneurysm. BOWEL: No bowel obstruction. Diverticulosis throughout the descending colon. Active inflammatory changes seen in the sigmoid colon with extraluminal free air and extensive wall thickening. Previously seen pericolonic small fluid collection is not clearly identified. No new organized fluid collection seen. APPENDIX: Normal appendix. PERITONEUM: Small amount of fluid in the pelvis. LYMPH NODES: Scattered retroperitoneal lymphadenopathy. No bulky lymphadenopathy seen. BLADDER: Limited evaluation due to its collapsed state. REPRODUCTIVE: Please note that evaluation of gynecologic organs is not optimal on CT imaging. BONES: No acute fracture. OTHER FINDINGS: None. IMPRESSION: Active inflammatory changes seen in the sigmoid colon with multiple foci of extraluminal free air and extensive wall thickening. Given surrounding diverticulosis, underlying diverticulitis is suspected. No organized fluid collection. Minimal free fluid in the pelvis. Hepatic steatosis. Other findings as above.
--- NOTE | 2016-08-19 15:06 | CP.PCM.DIS ---
Provider - Provider Date of Admission: 08/16/16 19:57 Attending physician: Charito Ruby MD Time Spent in preparation of Discharge (in minutes): 30 Diagnosis - Discharge Diagnosis (1) Diverticulitis Status: Acute Hospital Course - Lab Results Lab Results: Micro Results 08/16/16 20:15 Blood-Venous Blood Culture - Preliminary NO GROWTH AFTER 48 HOURS 08/16/16 20:00 Blood-Venous Blood Culture - Preliminary NO GROWTH AFTER 48 HOURS Most Recent Lab Values WBC 10.3 K/uL (4.8-10.8) 08/19/16 06:30 RBC 4.40 Mil/uL (3.80-5.20) 08/19/16 06:30 Hgb 12.9 g/dL (12.0-16.0) 08/19/16 06:30 Hct 39.7 % (34.0-47.0) 08/19/16 06:30 MCV 90.2 fl (81.0-99.0) 08/19/16 06:30 MCH 29.3 pg (27.0-31.0) 08/19/16 06:30 MCHC 32.5 g/dL (33.0-37.0) L 08/19/16 06:30 RDW 12.8 % (11.5-14.5) 08/19/16 06:30 Plt Count 383 K/uL (130-400) 08/19/16 06:30 MPV 7.7 fl (7.2-11.7) 08/19/16 06:30 Neut % (Auto) 62.0 % (50.0-75.0) 08/19/16 06:30 Lymph % (Auto) 25.5 % (20.0-40.0) 08/19/16 06:30 Fisher % (Auto) 7.2 % (0.0-10.0) 08/19/16 06:30 Eos % (Auto) 5.2 % (0.0-4.0) H 08/19/16 06:30 Baso % (Auto) 0.1 % (0.0-2.0) 08/19/16 06:30 Neut # 6.4 K/uL (1.8-7.0) 08/19/16 06:30 Lymph # 2.6 K/uL (1.0-4.3) 08/19/16 06:30 Fisher # 0.7 K/uL (0.0-0.8) 08/19/16 06:30 Eos # 0.5 K/uL (0.0-0.7) 08/19/16 06:30 Baso # 0.0 K/uL (0.0-0.2) 08/19/16 06:30 Sodium 144 mmol/l (132-148) 08/18/16 05:30 Potassium 4.1 MMOL/L (3.6-5.0) 08/18/16 05:30 Chloride 108 mmol/L (98-107) H 08/18/16 05:30 Carbon Dioxide 25 mmol/L (22-30) 08/18/16 05:30 Anion Gap 15 (10-20) 08/18/16 05:30 BUN 9 mg/dl (7-17) 08/18/16 05:30 Creatinine 0.6 mg/dL (0.7-1.2) L 08/18/16 05:30 Est GFR ( Amer) > 60 08/18/16 05:30 Est GFR (Non-Af Amer) > 60 08/18/16 05:30 Random Glucose 110 mg/dL (65-105) H 08/18/16 05:30 Lactic Acid 1.3 MMOL/L (0.7-2.1) 08/16/16 20:00 Calcium 8.6 mg/dL (8.4-10.2) 08/18/16 05:30 Total Bilirubin 0.4 mg/dl (0.2-1.3) 08/18/16 05:30 AST 33 U/L (14-36) 08/18/16 05:30 ALT 44 U/L (9-52) 08/18/16 05:30 Alkaline Phosphatase 98 U/L (38-126) 08/18/16 05:30 Total Protein 7.1 G/DL (6.3-8.2) 08/18/16 05:30 Albumin 3.6 g/dL (3.5-5.0) 08/18/16 05:30 Globulin 3.5 gm/dL (2.2-3.9) 08/18/16 05:30 Albumin/Globulin Ratio 1.0 (1.0-2.1) 08/18/16 05:30 Urine Color Yellow (YELLOW) 08/16/16 11:05 Urine Clarity Slighty-cloudy (Clear) 08/16/16 11:05 Urine pH 5.0 (5.0-8.0) 08/16/16 11:05 Ur Specific [place] 1.025 (1.003-1.030) 08/16/16 11:05 Urine Protein Negative mg/dL (NEGATIVE) 08/16/16 11:05 Urine Glucose (UA) Neg mg/dL (Normal) 08/16/16 11:05 Urine Ketones Negative mg/dL (NEGATIVE) 08/16/16 11:05 Urine Blood Negative (NEGATIVE) 08/16/16 11:05 Urine Nitrate Negative (NEGATIVE) 08/16/16 11:05 Urine Bilirubin Negative (NEGATIVE) 08/16/16 11:05 Urine Urobilinogen 0.2-1.0 mg/dL (0.2-1.0) 08/16/16 11:05 Ur Leukocyte Esterase Trace Josy/uL (Negative) 08/16/16 11:05 Urine RBC (Auto) 5 /hpf (0-3) H 08/16/16 11:05 Urine Microscopic WBC 1 /hpf (0-5) 08/16/16 11:05 Ur Squamous Epith Cells 10 /hpf (0-5) H 08/16/16 11:05 Urine Bacteria Rare (<OCC) 08/16/16 11:05 - Hospital Course Hospital Course: 50 yo F with pmhx of PSVT (on metroprolol) presenting to ED with complaints of abdominal pain for the past about a week with associated dysuria and frequency. abdomen CT showed: evidence of sigmoid diverticulitis as well as 2 x1.5X2cm enhancing lesion in the sigmoid wall for which radiologist suspect is an abscess in sigmoid wall. Patient was admitted with IV abx ( cipro/flagyl), was evaluated by surgery , no surgical intervention at this point. Uneventful, hospitalization, clinical improvement noticed, leukocytosis resolved , repeat abd CT: abscess is not longer seen. Pt stable to be d/c home with PO antibiotics, discussed w/ Dr. Torres who agrees. F/U with PMD within 1 week. ER precautions given to pt who verbalized understanding. Discharge Exam - Additional Findings Additional findings: - Additional Findings Additional findings: - Constitutional Appears: No Acute Distress - Head Exam Head Exam: ATRAUMATIC, NORMOCEPHALIC - Eye Exam Eye Exam: PERRL - ENT Exam ENT Exam: Mucous Membranes Moist - Respiratory Exam Respiratory Exam: Clear to Ausculation Bilateral. absent: Rhonchi, Wheezes - Cardiovascular Exam Cardiovascular Exam: RRR, +S1, +S2 - GI/Abdominal Exam GI & Abdominal Exam: Soft, Tenderness (mild tenderness in lower abdomen (mostly in suprapubic area)), Normal Bowel Sounds. absent: Distended, Guarding, Rigid - Extremities Exam Extremities Exam: absent: Calf Tenderness, Pedal Edema - Neurological Exam Neurological Exam: Alert, Oriented x3 - Psychiatric Exam Psychiatric exam: Normal Affect, Normal Mood - Skin Skin Exam: Dry, Normal Color, Warm Discharge Plan - Discharge Medications Prescriptions: Ciprofloxacin [Cipro] 500 mg PO Q12 #14 tab Metronidazole [Flagyl] 500 mg PO Q8 #21 tablet - Follow Up Plan Condition: STABLE Disposition: HOME/ ROUTINE Instructions: Diverticulosis (DC), Diverticulitis Diet (DC), Diverticulitis Diet (GEN) Additional Instructions: Take medication as directed. Return to ER for any worse or new symptoms. Recommend VETERINARY ASSISTANT TECHNICIAN evaluation. F/U with PMD at [facility] within 1 week. Referrals: [facility] [Outside] [facility] [Outside] Charito Ruby MD [Staff Provider] - Bernardo Torres MD [Staff Provider] -
[2016-08-21 15:04] VITALS: O2SAT 97
== END 2016-08-19 15:41 | disposition home or self-care (01) | DRG 182 ==
LOC: H.ER 10:14 → H.ERHOLD 19:57 → H.TEL 08-17 00:05 → H.MEDSURG1 08-17 19:08
PROVIDERS: ADMIT Family Medicine Geriatric Medicine; ATTEND Family Medicine Geriatric Medicine
DX: K57.32 Diverticulitis of large intestine without perforation or abscess without bleeding (principal); K63.0 Abscess of intestine; I47.1 Supraventricular tachycardia; D72.829 Elevated white blood cell count, unspecified

== ENCOUNTER 2016-10-14 13:03 | Inpatient (IN) | payer OTHER, SELFPAY ==
[2016-10-14 13:03] VITALS: BMI 36.6
[2016-10-14] MEDS ORDERED: Sodium Chloride 0.9% 1,000 ML IV STA (14:15)
[2016-10-14] MEDS ORDERED: Iohexol 240 (50 ml) PO ONE (14:15)
--- NOTE | 2016-10-14 14:20 | ED PDOC ---
HPI: Abdomen Time Seen by Provider: 10/14/16 13:35 Chief Complaint (Nursing): Abdominal Pain Chief Complaint (Provider): Lower abdominal pain, feverish History Per: Patient History/Exam Limitations: no limitations Onset/Duration Of Symptoms: Days Outside of [place] travel?: No Location Of Pain/Discomfort: RUQ, RLQ Quality Of Discomfort: Sharp, Cramping Associated Symptoms: Fever (Tactile, no temp at home ) Alleviating Factors: None Last Bowel Movement: Today Additional Complaint(s): Pt reports lower abdominal pain since last night. Pt states she has been feeling feverish but did not take the temperature at home. Last took motrin at 6am today. PT reports no change in BM, not reports decreased appetite. No similar in the past. No urinary symptoms Past Medical History Reviewed: Historical Data, Nursing Documentation, Vital Signs Vital Signs: Last Vital Signs Temp 98 F 10/14/16 13:08 Pulse 84 10/14/16 13:08 Resp 20 10/14/16 13:08 BP 130/70 10/14/16 13:08 Pulse Ox 98 10/14/16 14:20 - Medical History PMH: Cardia Arrhythmia Denies: Arthritis, Asthma, Atrial Fibrillation, CHF, COPD, HIV, HTN, Hypercholesterolemia, Chronic Kidney Disease, Seizures Other PMH: No Lopressor for tachycardia - Surgical History Surgical History: Denies: CABG, Pacemaker - Family History Family History: States: Unknown Family Hx Denies: CAD - Living Arrangements Living Arrangements: With Family - Social History Current smoker - smoking cessation education provided: No Alcohol: None Drugs: Denies - Home Medications Home Medications: Ambulatory Orders Medication Instructions Recorded Metoprolol Succinate [Toprol XL] 25 mg PO DAILY #30 tab 05/03/16 - Allergies Allergies/Adverse Reactions: Allergies Allergy/AdvReac Type Severity Reaction Status Date / Time No Known Allergies Allergy Verified 10/14/16 13:08 Review of Systems ROS Statement: Except As Marked, All Systems Reviewed And Found Negative Constitutional: Positive for: Fever Gastrointestinal: Positive for: Abdominal Pain Physical Exam - Reviewed Nursing Documentation Reviewed: Yes Vital Signs Reviewed: Yes - Physical Exam Appears: Positive for: Well, Non-toxic, No Acute Distress Head Exam: Positive for: ATRAUMATIC, NORMAL INSPECTION, NORMOCEPHALIC Skin: Positive for: Normal Color, Warm, DRY Eye Exam: Positive for: Normal appearance ENT: Positive for: Normal ENT Inspection Neck: Positive for: Normal, Painless ROM Cardiovascular/Chest: Positive for: Regular Rate, Rhythm Respiratory: Positive for: Normal Breath Sounds. Negative for: Accessory Muscle Use, Respiratory Distress Gastrointestinal/Abdominal: Positive for: Bowel Sounds, Soft, Tenderness (RLQ). Negative for: Normal Exam Back: Positive for: Normal Inspection Extremity: Positive for: Normal ROM Neurologic/Psych: Positive for: Alert, Oriented - Laboratory Results Result Diagrams: 10/14/16 14:30 10/14/16 14:30 - ECG O2 Sat by Pulse Oximetry: 98 Medical Decision Making Medical Decision Making: Discussed admission with Dr. Braden, FMR. Surgery Resident also aware. Disposition - Clinical Impression Clinical Impression: Diverticulitis, Intra-abdominal fluid collection - Patient ED Disposition Is Patient to be Admitted: Yes - Disposition Disposition Time: 18:37 Condition: STABLE - Pt Status Changed To: Hospital Disposition Of: Inpatient - Admit Certification Admit to Inpatient:: After my assessment, the patient will require hospitalization for at least two midnights. This is because of the severity of symptoms shown, intensity of services needed, and/or the medical risk in this patient being treated as an outpatient. - POA Present On Arrival: None
[2016-10-14 14:42] LABS: BASO # 0.1 K/uL (0.0-0.2); BASO % 0.8 % (0.0-2.0); EOS # 0.4 K/uL (0.0-0.7); EOS % 2.5 % (0.0-4.0); HEMOGLOBIN 11.7 g/dL (12.0-16.0); LYMPH # 1.8 K/uL (1.0-4.3); LYMPH % 12.6 % (20.0-40.0); MEAN CELL VOLUME 89.3 fl (81.0-99.0); MEAN CORPUSCULAR HEMOGLOBIN 28.8 pg (27.0-31.0); MEAN CORPUSCULAR HGB CONC 32.3 g/dL (33.0-37.0); MEAN PLATELET VOLUME 7.4 fl (7.2-11.7); MONO % 7.3 % (0.0-10.0); NEUT # 10.9 K/uL (1.8-7.0); NEUT % 76.8 % (50.0-75.0); RBC 4.06 Mil/uL (3.80-5.20); RED CELL DISTRIBUTION WIDTH 13.2 % (11.5-14.5); WHITE BLOOD COUNT 14.2 K/uL (4.8-10.8)
[2016-10-14 14:55] LABS: ALB/GLOB RATIO 0.9 (1.0-2.1); ALBUMIN 3.9 g/dL (3.5-5.0); ALT/SGPT 17 U/L (9-52); AST/SGOT 30 U/L (14-36); BLOOD UREA NITROGEN 12 mg/dl (7-17); GFR AFRICAN-AMERICAN > 60; GFR NON-AFRICAN AMERICAN > 60
[2016-10-14] MEDS ORDERED: Iohexol 300 100 ML IJ ONE (17:35)
[2016-10-14] MEDS ORDERED: Sodium Chloride 0.9% 100 ML ONE (17:35)
--- NOTE | 2016-10-14 18:17 | CT ---
PROCEDURE: CT Abdomen and Pelvis with contrast HISTORY: RLQ tenderness, tactile fever COMPARISON: None. TECHNIQUE: Contrast dose: 100 cc of Omnipaque 300 Radiation dose: Total exam DLP = 1031 mGy-cm. This CT exam was performed using one or more of the following dose reduction techniques: Automated exposure control, adjustment of the mA and/or kV according to patient size, and/or use of iterative reconstruction technique. FINDINGS: LOWER THORAX: Unremarkable. LIVER: Unremarkable. No gross lesion or ductal dilatation. GALLBLADDER AND BILE DUCTS: Unremarkable. PANCREAS: Unremarkable. No gross lesion or ductal dilatation. SPLEEN: Unremarkable. ADRENALS: Unremarkable. No mass. KIDNEYS AND URETERS: Unremarkable. No hydronephrosis. No solid mass. VASCULATURE: Unremarkable. No aortic aneurysm. BOWEL: Colonic diverticulosis with pericolonic fat infiltration along the sigmoid colon compatible with diverticulitis. Roughly 4.1 centimeter heterogeneous fluid collection in the supra vesicle mesentery with internal foci of gas and peripheral enhancement compatible with an abscess. APPENDIX: Normal appendix. PERITONEUM: Unremarkable. No free fluid. No free air. LYMPH NODES: Unremarkable. No enlarged lymph nodes. BLADDER: Unremarkable. REPRODUCTIVE: Unremarkable. BONES: No acute fracture. OTHER FINDINGS: None. IMPRESSION: Colonic diverticulosis with pericolonic fat infiltration along the sigmoid colon compatible with diverticulitis. Roughly 4.1 centimeter heterogeneous fluid collection in the supra vesicle mesentery with internal foci of gas and peripheral enhancement compatible with an abscess.
[2016-10-14] MEDS ORDERED: Piperacillin/Tazobact 3.375 GM in Sodium Chloride 0.9% 100 ML IV ONE (18:22)
[2016-10-14] MEDS ORDERED: Piperacillin/Tazobact 3.375 gm Inj IVPB ONE (18:50)
[2016-10-14] MEDS ORDERED: Vancomycin 1 g Inj ONE (18:50)
--- NOTE | 2016-10-14 21:09 | CP.PCM.HP ---
History of Present Illness - History of Present Illness History of Present Illness: 50 yo obese female with PMHx of PSVT, diverticulitis presented to ED with complaints of worsening lower abdominal pain since last night with tactile fever. Last took motrin at 6am. No change in BM, last BM this AM, normal as per patient. Denies brbpr, melena. No decreased appetite. Patient recently admitted (07/2016) for diverticulitis. No urinary symptoms. Denies chest pain, back pain, sob, or chills. Nausea present. No diarrhea or vomiting. Patient states abdominal pain began with worsening of symptoms x 1 day. Patient has not been able to f/u with GI, scheduled appt for 11/2016. PMD: [facility] PMHx: PSVT, diverticulitis Allergies: NKDA Meds: Metoprolol PSHx: 11/16/1991, with BTL 08/31/1993 FMHx: DM in mother ObGyn: Post-menopausal LMP 2013 Social Hx: Denies drug or tobacco use. Etoh socially. 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 PE: notable for lower abdominal tenderness to palpation Labs: WBC 14k with 76% neutrophils, AlkPhos mildly elevated, CT abd/pelvis: Colonic diverticulosis with pericolonic fat infiltration along the sigmoid colon compatible with diverticulitis. Roughly 4.1 centimeter heterogeneous fluid collection in the supra vesicle mesentery with internal foci of gas and peripheral enhancement compatible with an abscess. Toradol 15mg x 1, NS 1L x 1, Vanco/Zosyn x 1 Surgery consulted No lactate or blood cx taken prior to Abx administration. Emergency contact Daughter Sully Hutton #[phone] Present on Admission - Present on Admission Any Indicators Present on Admission: No Review of Systems - Review of Systems All systems: reviewed and no additional remarkable complaints except (mentioned in HPI) Past Patient History - Past Medical History & Family History Past Medical History?: Yes - Past Social History Alcohol: None Drugs: Denies - CARDIAC Hx Atrial Fibrillation: No Hx Cardia Arrhythmia: Yes Hx Congestive Heart Failure: No Hx Hypercholesterolemia: No Hx Hypertension: No Hx Pacemaker: No - PULMONARY Hx Asthma: No Hx Chronic Obstructive Pulmonary Disease (COPD): No - NEUROLOGICAL Hx Seizures: No - HEENT Hx HEENT Problems: No - RENAL Hx Chronic Kidney Disease: No - ENDOCRINE/METABOLIC Hx Endocrine Disorders: No - HEMATOLOGICAL/ONCOLOGICAL Hx Human Immunodeficiency Virus (HIV): No - INTEGUMENTARY Hx Dermatological Problems: No - MUSCULOSKELETAL/RHEUMATOLOGICAL Hx Arthritis: No - GASTROINTESTINAL Hx Gastrointestinal Disorders: No - GENITOURINARY/GYNECOLOGICAL Hx Genitourinary Disorders: No - PSYCHIATRIC Hx Substance Use: No - SURGICAL HISTORY Hx Coronary Artery Bypass Graft: No - ANESTHESIA Hx Anesthesia: Yes Hx Anesthesia Reactions: No Meds Allergies/Adverse Reactions: Allergies Allergy/AdvReac Type Severity Reaction Status Date / Time No Known Allergies Allergy Verified 10/14/16 13:08 Physical Exam - Constitutional Appears: Non-toxic, No Acute Distress - Head Exam Head Exam: ATRAUMATIC, NORMAL INSPECTION, NORMOCEPHALIC - Eye Exam Eye Exam: Normal appearance - Neck Exam Neck exam: Positive for: Normal Inspection - Respiratory Exam Respiratory Exam: Clear to Auscultation Bilateral, NORMAL BREATHING PATTERN - Cardiovascular Exam Cardiovascular Exam: REGULAR RHYTHM, RRR, +S1, +S2 - GI/Abdominal Exam GI & Abdominal Exam: Normal Bowel Sounds, Soft, Tenderness (lower abdomen specifically suprapubic) - Extremities Exam Extremities exam: Positive for: normal inspection. Negative for: calf tenderness, pedal edema - Back Exam Back exam: NORMAL INSPECTION. absent: CVA tenderness (L), CVA tenderness (R) - Neurological Exam Neurological exam: Alert, Oriented x3 - Psychiatric Exam Psychiatric exam: Normal Affect, Normal Mood - Skin Skin Exam: Dry, Intact, Normal Color, Warm Results - Vital Signs Recent Vital Signs: Last Vital Signs Temp 100.3 F H 10/14/16 20:59 Pulse 86 10/14/16 20:59 Resp 16 10/14/16 20:59 BP 114/77 10/14/16 20:59 Pulse Ox 99 10/14/16 20:59 - Labs Result Diagrams: 10/14/16 14:30 10/14/16 14:30 Assessment & Plan (1) Sepsis Status: Acute (2) Diverticulitis Status: Acute (3) Intra-abdominal fluid collection Status: Acute (4) Elevated hemoglobin A1c Status: Chronic - Assessment and Plan (Free Text) Assessment: 50 yo obese female with PMHx of PSVT, diverticulitis with lower abdominal pain since worsening x 1 day with fever. WBC elevated. CT abdomen notable for diverticulitis and fluid collection abscess?. Plan: (1) Sepsis - Criteria met with WBC and fever now and source of infection - Lactate normal, hemodynamically stable - monitor vitals - IV fluids with NS 125cc/hr - Zosyn/Flagyl scheduled dosing - Tylenol PRN fever - Monitor in telemetry - repeat labs in AM - blood cx collected after 1st abx administration (vanco/zosyn) (2) Diverticulitis - NPO - Zosyn/flagyl - Consider GI referral for outpatient colonoscopy (3) Intra-abdominal fluid collection - abscess? - NPO - Zosyn/Flagyl - Surgery consulted, appreciate recommendations (4) Elevated hemoglobin A1c - on review of labs, 6.5% 12/2015 - random glucose elevated - will repeat at this time (5) PSVT - HR controlled at this time - Will hold metoprolol due to acute infection at this time - Can resume when patient is more stable (6) DVT Prophylaxis - scds for now, pending surgical recommendations
[2016-10-14] MEDS ORDERED: Dextrose 5%/0.45% NS 1,000 ML IV SCH (21:15)
--- NOTE | 2016-10-14 21:15 | CP.PCM.CON ---
<Gilles Yang - Last Filed: 10/15/16 00:40> History of Present Illness - History of Present Illness History of Present Illness: Surgery Consult note. Dr. Torres CC: Abdominal pain 50yo F with PMHx of Palpitations, Diverticulitis here for evaluation of abdominal pain. Pain is located in the lower abdomen, described as sharp. Pain started last night and gradually got worse. She has had a similar episode in the past in July and was treated with Abx. She states that this time the pain is worse than the previous episode. She took advil at home with mild relief. She also c/o subjective fevers and chills over the past day. She last ate at 4PM yesterday and states that the pain is not associated with food intake. Patient denies any N/V/D. No CP/SOB. Denies any urinary changes. No Headaches. PMHx: Palpitations, Diverticulitis PSHx: 11/16/1991, with BTL 08/31/1993 FMHx: DM in mother Social Hx: Lives with boyfriend. Admits to occasional ETOH use. Denies Tobacco use. Denies any illicit drug use. NKDA Home Meds: Metoprolol Review of Systems - Review of Systems All systems: reviewed and no additional remarkable complaints except - Constitutional Constitutional: Chills, Fever, Headache - Cardiovascular Cardiovascular: absent: Chest Pain, Dyspnea - Respiratory Respiratory: absent: Dyspnea - Gastrointestinal Gastrointestinal: Abdominal Pain. absent: Diarrhea, Nausea, Vomiting - Genitourinary Genitourinary: absent: Dysuria Past Patient History - Past Medical History & Family History Past Medical History?: Yes Past Family History: Reviewed and not pertinent - Past Social History Alcohol: None Drugs: Denies - CARDIAC Hx Atrial Fibrillation: No Hx Cardia Arrhythmia: Yes Hx Congestive Heart Failure: No Hx Hypercholesterolemia: No Hx Hypertension: No Hx Pacemaker: No - PULMONARY Hx Asthma: No Hx Chronic Obstructive Pulmonary Disease (COPD): No - NEUROLOGICAL Hx Seizures: No - HEENT Hx HEENT Problems: No - RENAL Hx Chronic Kidney Disease: No - ENDOCRINE/METABOLIC Hx Endocrine Disorders: No - HEMATOLOGICAL/ONCOLOGICAL Hx Human Immunodeficiency Virus (HIV): No - INTEGUMENTARY Hx Dermatological Problems: No - MUSCULOSKELETAL/RHEUMATOLOGICAL Hx Arthritis: No - GASTROINTESTINAL Hx Gastrointestinal Disorders: No - GENITOURINARY/GYNECOLOGICAL Hx Genitourinary Disorders: No - PSYCHIATRIC Hx Substance Use: No - SURGICAL HISTORY Hx Coronary Artery Bypass Graft: No - ANESTHESIA Hx Anesthesia: Yes Hx Anesthesia Reactions: No Meds Allergies/Adverse Reactions: Allergies Allergy/AdvReac Type Severity Reaction Status Date / Time No Known Allergies Allergy Verified 10/14/16 13:08 Physical Exam - Constitutional Appears: Well, No Acute Distress - Head Exam Head Exam: ATRAUMATIC, NORMAL INSPECTION, NORMOCEPHALIC - Eye Exam Eye Exam: EOMI - ENT Exam ENT Exam: Mucous Membranes Moist - Respiratory Exam Respiratory Exam: NORMAL BREATHING PATTERN - GI/Abdominal Exam GI & Abdominal Exam: Soft. absent: Distended, Firm, Guarding, Mass Additional comments: Tender to palpation in the lower abdomen. No Rebound, no guarding. Soft, non- distended - Extremities Exam Extremities exam: Positive for: normal inspection. Negative for: calf tenderness - Neurological Exam Neurological exam: Alert, Oriented x3 - Psychiatric Exam Psychiatric exam: Normal Affect, Normal Mood - Skin Skin Exam: Dry, Intact, Normal Color, Warm Results - Vital Signs Recent Vital Signs: Last Vital Signs Temp 100.3 F H 10/14/16 20:59 Pulse 86 10/14/16 20:59 Resp 16 10/14/16 20:59 BP 114/77 10/14/16 20:59 Pulse Ox 99 10/14/16 20:59 - Labs Result Diagrams: 10/14/16 14:30 10/14/16 14:30 Assessment & Plan - Assessment and Plan (Free Text) Assessment: 50yo w/ sigmoid diverticulitis - CT-4cm fluid collection w/ focal air, sigmoid diverticulitis. No Free air - Leukocytosis - Low-grade fever - NPO - IVF - IV Abx - Pain management - serial abd exams - f/u AM labs - will follow Further recs as per Dr. Melissa Yang PGY1 <Bernardo Torres - Last Filed: 10/15/16 20:08> Meds - Medications Medications: Current Medications Acetaminophen (Tylenol 325mg Tab) 650 mg PO Q4 PRN PRN Reason: Fever >100.4 F Last Admin: 10/14/16 23:49 Dose: 650 mg Enoxaparin Sodium (Lovenox) 40 mg SC DAILY YUSUF PRN Reason: Protocol Last Admin: 10/15/16 12:19 Dose: 40 mg Piperacillin Sod/Tazobactam Sod (Zosyn 3.375 Gm Iv Premix) 3.375 gm in 50 mls @ 50 mls/hr IVPB Q6 [facility] Last Admin: 10/15/16 17:45 Dose: 50 mls/hr Sodium Chloride (Sodium Chloride 0.9%) 1,000 mls @ 125 mls/hr IV .Q8H [facility] Stop: 10/15/16 23:34 Last Admin: 10/15/16 17:16 Dose: Not Given Sodium Chloride (Sodium Chloride 0.9%) 1,000 mls @ 999 mls/hr IV .Q1H1M [facility] Stop: 10/16/16 11:27 Last Admin: 10/15/16 12:19 Dose: 999 mls/hr Morphine Sulfate (Morphine) 4 mg IVP Q4 PRN PRN Reason: Pain, moderate (4-7) Ondansetron HCl (Zofran Inj) 4 mg IVP Q4 PRN PRN Reason: Nausea/Vomiting Results - Vital Signs Recent Vital Signs: Last Vital Signs Temp 99.1 F 10/15/16 19:13 Pulse 72 10/15/16 19:13 Resp 20 10/15/16 19:13 BP 117/71 10/15/16 19:13 Pulse Ox 95 10/15/16 19:13 - Labs Result Diagrams: 10/15/16 05:00 10/15/16 05:00 Labs: Laboratory Results - last 24 hr 10/14/16 10/15/16 10/15/16 21:30 00:14 05:00 WBC RBC Hgb Hct MCV MCH MCHC RDW Plt Count MPV Neut % (Auto) Lymph % (Auto) [place] % (Auto) Eos % (Auto) Baso % (Auto) Neut # Lymph # [place] # Eos # Baso # PT INR APTT Sodium 142 Potassium 3.8 Chloride 108 H Carbon Dioxide 26 Anion Gap 12 BUN 10 Creatinine 0.6 L Est GFR ( Amer) > 60 Est GFR (Non-Af Amer) > 60 Random Glucose 126 H Lactic Acid 1.0 Calcium 8.7 Phosphorus 3.7 Magnesium 2.3 Total Bilirubin 0.6 AST 21 ALT 31 Alkaline Phosphatase 109 Total Protein 7.2 Albumin 3.4 L Globulin 3.8 Albumin/Globulin Ratio 0.9 L Urine Color Yellow Urine Clarity Clear Urine pH 7.0 Ur Specific [place] 1.018 Urine Protein Negative Urine Glucose (UA) Neg Urine Ketones Negative Urine Blood Negative Urine Nitrate Negative Urine Bilirubin Negative Urine Urobilinogen 0.2-1.0 Ur Leukocyte Esterase Neg Urine RBC (Auto) 1 Urine Microscopic WBC 1 Ur Squamous Epith Cells 1 Urine Bacteria Rare Hepatitis C Antibody 10/15/16 10/15/16 10/15/16 05:00 05:00 05:00 WBC 11.5 H RBC 3.97 Hgb 11.4 L Hct 35.3 MCV 89.1 MCH 28.8 MCHC 32.4 L RDW 13.1 Plt Count 476 H MPV 7.3 Neut % (Auto) 67.9 Lymph % (Auto) 20.5 [place] % (Auto) 8.9 Eos % (Auto) 2.5 Baso % (Auto) 0.2 Neut # 7.8 H Lymph # 2.4 [place] # 1.0 H Eos # 0.3 Baso # 0.0 PT 14.4 H INR 1.3 H APTT 28.5 Sodium Potassium Chloride Carbon Dioxide Anion Gap BUN Creatinine Est GFR ( Amer) Est GFR (Non-Af Amer) Random Glucose Lactic Acid Calcium Phosphorus Magnesium Total Bilirubin AST ALT Alkaline Phosphatase Total Protein Albumin Globulin Albumin/Globulin Ratio Urine Color Urine Clarity Urine pH Ur Specific [place] Urine Protein Urine Glucose (UA) Urine Ketones Urine Blood Urine Nitrate Urine Bilirubin Urine Urobilinogen Ur Leukocyte Esterase Urine RBC (Auto) Urine Microscopic WBC Ur Squamous Epith Cells Urine Bacteria Hepatitis C Antibody Negative Attending/Attestation - Attestation I have personally seen and examined this patient.: Yes I have fully participated in the care of the patient.: Yes I have reviewed all pertinent clinical information: Yes Notes (Text): 10/15/16 20:07 Pt was seen and examined at bedside on 10/15/16 Agree with above note and assessment. Pt with Sigmoid Diverticulitis with microperforation with abscess IR drainage of abscess C.w current mx IV antibiotics Plan d.w pt in detail Risk and benefit explained in detail.
[2016-10-14] MEDS ORDERED: Morphine 4 MG/ML VIAL IVP PRN (22:41)
[2016-10-14] MEDS: Sodium Chloride 0.9% 1,000 ML IV SCH (23:49)
[2016-10-15] MEDS: metroNIDAZOLE 500mg/100ml NS 100 ML IVPB SCH ×2 (00:55→10:46)
[2016-10-15] MEDS: Piperacill/Tazo 3.375gm in Dex 3.375 GM/50 ML BAG IVPB SCH ×4 (04:05→21:49)
[2016-10-15 04:26] LABS: SQUAMOUS EPITHIAL 1 /hpf (0-5); URINE BACTERIA RARE (<OCC); URINE BILIRUBIN NEGATIVE (NEGATIVE); URINE BLOOD NEGATIVE (NEGATIVE); URINE CLARITY CLEAR (Clear); URINE COLOR YELLOW (YELLOW); URINE GLUCOSE (UA) NEG (Normal); URINE LEUKOCYTE ESTERASE NEG Leu/uL (Negative); URINE NITRATE NEGATIVE (NEGATIVE); URINE PROTEIN NEGATIVE (NEGATIVE); URINE UROBILINOGEN 0.2-1.0 mg/dL (0.2-1.0)
[2016-10-15 06:33] LABS: BASO % 0.2 % (0.0-2.0); EOS # 0.3 K/uL (0.0-0.7); EOS % 2.5 % (0.0-4.0); HEMOGLOBIN 11.4 g/dL (12.0-16.0); LYMPH # 2.4 K/uL (1.0-4.3); LYMPH % 20.5 % (20.0-40.0); MEAN CELL VOLUME 89.1 fl (81.0-99.0); MEAN CORPUSCULAR HEMOGLOBIN 28.8 pg (27.0-31.0); MEAN CORPUSCULAR HGB CONC 32.4 g/dL (33.0-37.0); MEAN PLATELET VOLUME 7.3 fl (7.2-11.7); MONO % 8.9 % (0.0-10.0); NEUT # 7.8 K/uL (1.8-7.0); NEUT % 67.9 % (50.0-75.0); NRBC % 0.1 % (0.0-0.0); RBC 3.97 Mil/uL (3.80-5.20); RED CELL DISTRIBUTION WIDTH 13.1 % (11.5-14.5); WHITE BLOOD COUNT 11.5 K/uL (4.8-10.8)
[2016-10-15 06:35] LABS: ALB/GLOB RATIO 0.9 (1.0-2.1); ALBUMIN 3.4 g/dL (3.5-5.0); ALT/SGPT 31 U/L (9-52); AST/SGOT 21 U/L (14-36); BLOOD UREA NITROGEN 10 mg/dl (7-17); CALCIUM 8.7 mg/dL (8.4-10.2); GFR AFRICAN-AMERICAN > 60; GFR NON-AFRICAN AMERICAN > 60; MAGNESIUM 2.3 MG/DL (1.6-2.3)
[2016-10-15 06:49] LABS: INR 1.3 (0.9-1.2); PARTIAL THROMBOPLASTIN TIME 28.5 Seconds (25.6-37.1); PROTHROMBIN TIME 14.4 Seconds (9.8-13.1)
--- NOTE | 2016-10-15 09:06 | CP.PCM.PN ---
<Karie Ruiz - Last Filed: 10/15/16 09:03> Subjective - Date & Time of Evaluation Date of Evaluation: 10/15/16 Time of Evaluation: 09:03 - Subjective Subjective: Surgery for Dr. Torres Pt s&e. Pt had low grade fever 100.9. Denies N/V/D/CP/SOB. pain controlled. + amb. Objective - Vital Signs/Intake and Output Vital Signs (last 24 hours): Temp Pulse Resp BP Pulse Ox 97.4 F L 74 20 94/61 L 96 10/15/16 08:47 10/15/16 08:47 10/15/16 08:47 10/15/16 08:47 10/15/16 08:47 - Medications Medications: Current Medications Acetaminophen (Tylenol 325mg Tab) 650 mg PO Q4 PRN PRN Reason: Fever >100.4 F Last Admin: 10/14/16 23:49 Dose: 650 mg Enoxaparin Sodium (Lovenox) 30 mg SC DAILY YUSUF PRN Reason: Protocol Piperacillin Sod/Tazobactam Sod (Zosyn 3.375 Gm Iv Premix) 3.375 gm in 50 mls @ 50 mls/hr IVPB Q6 [facility]USUF Last Admin: 10/15/16 04:05 Dose: 50 mls/hr Metronidazole (Flagyl 500mg/100ml Ns) 100 mls @ 100 mls/hr IVPB Q8 [facility]UF Last Admin: 10/15/16 00:55 Dose: 100 mls/hr Sodium Chloride (Sodium Chloride 0.9%) 1,000 mls @ 125 mls/hr IV .Q8H [facility] Stop: 10/15/16 23:34 Last Admin: 10/14/16 23:49 Dose: 125 mls/hr Morphine Sulfate (Morphine) 4 mg IVP Q4 PRN PRN Reason: Pain, moderate (4-7) Ondansetron HCl (Zofran Inj) 4 mg IVP Q4 PRN PRN Reason: Nausea/Vomiting - Labs Labs: 10/15/16 05:00 10/15/16 05:00 PT 14.4 Seconds (9.8-13.1) H 10/15/16 05:00 INR 1.3 (0.9-1.2) H 10/15/16 05:00 APTT 28.5 Seconds (25.6-37.1) 10/15/16 05:00 - Constitutional Appears: No Acute Distress - Head Exam Head Exam: ATRAUMATIC, NORMAL INSPECTION, NORMOCEPHALIC - Eye Exam Eye Exam: EOMI, Normal appearance, PERRL Pupil Exam: NORMAL ACCOMODATION, PERRL - ENT Exam ENT Exam: Mucous Membranes Moist, Normal Exam - Neck Exam Neck Exam: Full ROM, Normal Inspection. absent: Lymphadenopathy - Respiratory Exam Respiratory Exam: Clear to Ausculation Bilateral, NORMAL BREATHING PATTERN - Cardiovascular Exam Cardiovascular Exam: REGULAR RHYTHM, +S1, +S2. absent: Murmur - GI/Abdominal Exam GI & Abdominal Exam: Soft, Tenderness, Normal Bowel Sounds. absent: Distended Additional comments: Supra pubic TTP. - Exam Exam: NORMAL INSPECTION - Extremities Exam Extremities Exam: Full ROM, Normal Capillary Refill, Normal Inspection. absent : Joint Swelling, Pedal Edema - Back Exam Back Exam: NORMAL INSPECTION - Neurological Exam Neurological Exam: Alert, Awake, CN II-XII Intact, Normal Gait, Oriented x3 - Psychiatric Exam Psychiatric exam: Normal Affect, Normal Mood - Skin Skin Exam: Dry, Intact, Normal Color, Warm. absent: Cyanosis, Erythema Assessment and Plan - Assessment and Plan (Free Text) Assessment: 50yo w/ sigmoid diverticulitis - CT-4cm fluid collection w/ focal air, sigmoid diverticulitis. No Free air - Leukocytosis resolved - Low-grade fever -Recommend IR drain of abscesses - NPO - IVF - IV Abx - Pain management - serial abd exams - will follow JIMMY Torres <Bernardo Torres - Last Filed: 10/15/16 20:09> Objective - Vital Signs/Intake and Output Vital Signs (last 24 hours): Temp Pulse Resp BP Pulse Ox 99.1 F 72 20 117/71 95 10/15/16 19:13 10/15/16 19:13 10/15/16 19:13 10/15/16 19:13 10/15/16 19:13 Intake and Output: 10/15/16 10/16/16 18:59 06:59 Intake Total 1999 Balance 1999 - Medications Medications: Current Medications Acetaminophen (Tylenol 325mg Tab) 650 mg PO Q4 PRN PRN Reason: Fever >100.4 F Last Admin: 10/14/16 23:49 Dose: 650 mg Enoxaparin Sodium (Lovenox) 40 mg SC DAILY YUSUF PRN Reason: Protocol Last Admin: 10/15/16 12:19 Dose: 40 mg Piperacillin Sod/Tazobactam Sod (Zosyn 3.375 Gm Iv Premix) 3.375 gm in 50 mls @ 50 mls/hr IVPB Q6 [facility] Last Admin: 10/15/16 17:45 Dose: 50 mls/hr Sodium Chloride (Sodium Chloride 0.9%) 1,000 mls @ 125 mls/hr IV .Q8H [facility] Stop: 10/15/16 23:34 Last Admin: 10/15/16 17:16 Dose: Not Given Sodium Chloride (Sodium Chloride 0.9%) 1,000 mls @ 999 mls/hr IV .Q1H1M [facility] Stop: 10/16/16 11:27 Last Admin: 10/15/16 12:19 Dose: 999 mls/hr Morphine Sulfate (Morphine) 4 mg IVP Q4 PRN PRN Reason: Pain, moderate (4-7) Ondansetron HCl (Zofran Inj) 4 mg IVP Q4 PRN PRN Reason: Nausea/Vomiting - Labs Labs: 10/15/16 05:00 10/15/16 05:00 PT 14.4 Seconds (9.8-13.1) H 10/15/16 05:00 INR 1.3 (0.9-1.2) H 10/15/16 05:00 APTT 28.5 Seconds (25.6-37.1) 10/15/16 05:00 Attending/Attestation - Attestation I have personally seen and examined this patient.: Yes I have fully participated in the care of the patient.: Yes I have reviewed all pertinent clinical information, including history, physical exam and plan: Yes Notes (Text): 10/15/16 20:09 Pt was seen and examined at bedside on 10/15/16 Agree with above note and assessment. Pt with Sigmoid Diverticulitis with microperforation with abscess IR drainage of abscess C.w current mx IV antibiotics Plan d.w pt in detail Risk and benefit explained in detail.
--- NOTE | 2016-10-15 10:16 | CP.PCM.PN ---
Subjective - Date & Time of Evaluation Date of Evaluation: 10/15/16 Time of Evaluation: 07:35 - Subjective Subjective: Patient seen and examined at bedside, in no acute distress. Reports she had fever and chills last night, Tmax 100.9 F. Denies nausea, vomiting, current fever or chills. Lower abdominal pain persists at 4/10 on pain scale. Has normal urine output, had a normal bowel movement this AM. Objective - Vital Signs/Intake and Output Vital Signs (last 24 hours): Temp Pulse Resp BP Pulse Ox 97.4 F L 74 20 94/61 L 96 10/15/16 08:47 10/15/16 08:47 10/15/16 08:47 10/15/16 08:47 10/15/16 08:47 - Medications Medications: Current Medications Acetaminophen (Tylenol 325mg Tab) 650 mg PO Q4 PRN PRN Reason: Fever >100.4 F Last Admin: 10/14/16 23:49 Dose: 650 mg Enoxaparin Sodium (Lovenox) 30 mg SC DAILY YUSUF PRN Reason: Protocol Piperacillin Sod/Tazobactam Sod (Zosyn 3.375 Gm Iv Premix) 3.375 gm in 50 mls @ 50 mls/hr IVPB Q6 [facility] Last Admin: 10/15/16 04:05 Dose: 50 mls/hr Metronidazole (Flagyl 500mg/100ml Ns) 100 mls @ 100 mls/hr IVPB Q8 [facility] Last Admin: 10/15/16 00:55 Dose: 100 mls/hr Sodium Chloride (Sodium Chloride 0.9%) 1,000 mls @ 125 mls/hr IV .Q8H [facility] Stop: 10/15/16 23:34 Last Admin: 10/14/16 23:49 Dose: 125 mls/hr Morphine Sulfate (Morphine) 4 mg IVP Q4 PRN PRN Reason: Pain, moderate (4-7) Ondansetron HCl (Zofran Inj) 4 mg IVP Q4 PRN PRN Reason: Nausea/Vomiting - Labs Labs: 10/15/16 05:00 10/15/16 05:00 PT 14.4 Seconds (9.8-13.1) H 10/15/16 05:00 INR 1.3 (0.9-1.2) H 10/15/16 05:00 APTT 28.5 Seconds (25.6-37.1) 10/15/16 05:00 - Constitutional Appears: Non-toxic, No Acute Distress - Head Exam Head Exam: ATRAUMATIC, NORMOCEPHALIC - Eye Exam Eye Exam: EOMI, PERRL - ENT Exam ENT Exam: Mucous Membranes Moist - Neck Exam Neck Exam: Full ROM. absent: Lymphadenopathy - Respiratory Exam Respiratory Exam: Clear to Ausculation Bilateral, NORMAL BREATHING PATTERN - Cardiovascular Exam Cardiovascular Exam: REGULAR RHYTHM, +S1, +S2 - GI/Abdominal Exam GI & Abdominal Exam: Soft (obese), Normal Bowel Sounds - Extremities Exam Extremities Exam: Full ROM. absent: Calf Tenderness - Back Exam Back Exam: absent: CVA tenderness (L), CVA tenderness (R) - Neurological Exam Neurological Exam: Alert, Awake, CN II-XII Intact, Oriented x3 - Psychiatric Exam Psychiatric exam: Normal Affect, Normal Mood - Skin Skin Exam: Dry, Intact, Normal Color, Warm Assessment and Plan - Assessment and Plan (Free Text) Assessment: 50 yr old F admitted for lower abdominal pain and found to have recurrent CT findings for diverticulitis and abscess. Patient had a fever Tmax 100.9 F , is currently septic with leukocytosis, fever, abd abscess, BP 95/61 mmHg. Plan: Sepsis -leukocytosis, Tmax of 100.9F , CT scan finding of abscess - Lactate normal, hemodynamically stable (BP 95/61 mmHg) - monitor vitals - 1L NS bolus, continue IV fluids with NS 125cc/hr - Day 2 of IV antibiotic (Zosyn 3.375mg IV Q6) - Tylenol PRN fever - f/u BCx Diverticulitis with fluid collection/abscess -recurrent, chronic -CT abd/pelvis: findings compatible with sigmoid colon diverticulitis and 4.1cm fluid collection in supra vesicle mesentery compatible with abscess - Day 2 of IV antibiotic (Zosyn 3.375mg IV Q6) -patient has GI appt with Dr. Kiser 12/13/16 for outpatient colonoscopy -IR on consult-Dr. Deleon: abscess not big enough for drainage, repeat CT in a couple of days no -Surgery on consult-Dr. Torres: no intervention from either at this time Elevated hemoglobin A1c - on review of labs, 6.5% 12/2015 - random glucose elevated - f/u repeat HbA1c -lipid panel wnl 05/03/16 PSVT - HR controlled at this time - Will hold metoprolol due to acute infection at this time - Can resume when patient is more stable DVT Prophylaxis -Lovenox 40mg SC QD -SCD's
--- NOTE | 2016-10-15 10:20 | PCM.IRP ---
History of Present Illness - History of Present Illness History of Present Illness: CT scan reviewed. The abscess is not big enough and organized for IR drainage. Drainage of the abscess will be performed once large enough to allow safe placement of a drainage catheter and minimize risk of bladder injury. Pt had sigmoid diverticular abscess on CT 08/19/2016. Recommend repeat CT scan in a couple of days and see if there is increase size. Objective - Vital Signs/Intake and Output Vital Signs (last 24 hours): Vital Signs - 24 hr 10/14/16 10/14/16 10/14/16 20:59 22:28 22:45 Temperature 100.3 F H 100.3 F H 100.9 F H Pulse Rate 86 86 93 H Pulse Rate [ Apical] Pulse Rate [ Left Brachial] Respiratory 16 16 20 Rate Blood Pressure 114/77 114/77 122/81 O2 Sat by Pulse 99 96 Oximetry 10/14/16 10/14/16 10/15/16 23:43 23:49 00:49 Temperature 100.3 F H 100.9 F H 98.7 F Pulse Rate 84 Pulse Rate [ Apical] Pulse Rate [ Left Brachial] Respiratory 18 Rate Blood Pressure 104/64 O2 Sat by Pulse 96 Oximetry 10/15/16 10/15/16 10/15/16 00:56 01:10 04:58 Temperature 98.7 F 98 F Pulse Rate 68 Pulse Rate [ 93 H Apical] Pulse Rate [ 93 H Left Brachial] Respiratory 20 18 Rate Blood Pressure 95/59 L O2 Sat by Pulse 96 97 Oximetry 10/15/16 08:47 Temperature 97.4 F L Pulse Rate 74 Pulse Rate [ Apical] Pulse Rate [ Left Brachial] Respiratory 20 Rate Blood Pressure 94/61 L O2 Sat by Pulse 96 Oximetry - Medications Medications: Current Medications Acetaminophen (Tylenol 325mg Tab) 650 mg PO Q4 PRN PRN Reason: Fever >100.4 F Last Admin: 10/14/16 23:49 Dose: 650 mg Enoxaparin Sodium (Lovenox) 30 mg SC DAILY YUSUF PRN Reason: Protocol Piperacillin Sod/Tazobactam Sod (Zosyn 3.375 Gm Iv Premix) 3.375 gm in 50 mls @ 50 mls/hr IVPB Q6 [facility]UF Last Admin: 10/15/16 04:05 Dose: 50 mls/hr Metronidazole (Flagyl 500mg/100ml Ns) 100 mls @ 100 mls/hr IVPB Q8 YUSUF Last Admin: 10/15/16 00:55 Dose: 100 mls/hr Sodium Chloride (Sodium Chloride 0.9%) 1,000 mls @ 125 mls/hr IV .Q8H [facility] Stop: 10/15/16 23:34 Last Admin: 10/14/16 23:49 Dose: 125 mls/hr Morphine Sulfate (Morphine) 4 mg IVP Q4 PRN PRN Reason: Pain, moderate (4-7) Ondansetron HCl (Zofran Inj) 4 mg IVP Q4 PRN PRN Reason: Nausea/Vomiting - Labs Labs (last 24 hours): Laboratory Results - last 24 hr 10/14/16 10/15/16 10/15/16 21:30 00:14 05:00 WBC RBC Hgb Hct MCV MCH MCHC RDW Plt Count MPV Neut % (Auto) Lymph % (Auto) [place] % (Auto) Eos % (Auto) Baso % (Auto) Neut # Lymph # [place] # Eos # Baso # PT INR APTT Sodium 142 Potassium 3.8 Chloride 108 H Carbon Dioxide 26 Anion Gap 12 BUN 10 Creatinine 0.6 L Est GFR ( Amer) > 60 Est GFR (Non-Af Amer) > 60 Random Glucose 126 H Lactic Acid 1.0 Calcium 8.7 Phosphorus 3.7 Magnesium 2.3 Total Bilirubin 0.6 AST 21 ALT 31 Alkaline Phosphatase 109 Total Protein 7.2 Albumin 3.4 L Globulin 3.8 Albumin/Globulin Ratio 0.9 L Urine Color Yellow Urine Clarity Clear Urine pH 7.0 Ur Specific [place] 1.018 Urine Protein Negative Urine Glucose (UA) Neg Urine Ketones Negative Urine Blood Negative Urine Nitrate Negative Urine Bilirubin Negative Urine Urobilinogen 0.2-1.0 Ur Leukocyte Esterase Neg Urine RBC (Auto) 1 Urine Microscopic WBC 1 Ur Squamous Epith Cells 1 Urine Bacteria Rare 10/15/16 10/15/16 05:00 05:00 WBC 11.5 H RBC 3.97 Hgb 11.4 L Hct 35.3 MCV 89.1 MCH 28.8 MCHC 32.4 L RDW 13.1 Plt Count 476 H MPV 7.3 Neut % (Auto) 67.9 Lymph % (Auto) 20.5 [place] % (Auto) 8.9 Eos % (Auto) 2.5 Baso % (Auto) 0.2 Neut # 7.8 H Lymph # 2.4 [place] # 1.0 H Eos # 0.3 Baso # 0.0 PT 14.4 H INR 1.3 H APTT 28.5 Sodium Potassium Chloride Carbon Dioxide Anion Gap BUN Creatinine Est GFR ( Amer) Est GFR (Non-Af Amer) Random Glucose Lactic Acid Calcium Phosphorus Magnesium Total Bilirubin AST ALT Alkaline Phosphatase Total Protein Albumin Globulin Albumin/Globulin Ratio Urine Color Urine Clarity Urine pH Ur Specific [place] Urine Protein Urine Glucose (UA) Urine Ketones Urine Blood Urine Nitrate Urine Bilirubin Urine Urobilinogen Ur Leukocyte Esterase Urine RBC (Auto) Urine Microscopic WBC Ur Squamous Epith Cells Urine Bacteria
[2016-10-15] MEDS: Enoxaparin 30 mg Syringe SC SCH ×2 (10:46→10:55)
[2016-10-15] MEDS: Sodium Chloride 0.9% 1,000 ML IV SCH ×2 (10:51→17:16)
[2016-10-15] MEDS ORDERED: Sodium Chloride 0.9% 1,000 ML IV SCH (11:28)
[2016-10-15] MEDS: Enoxaparin 40 mg Syringe SC SCH (12:19)
[2016-10-16] MEDS ORDERED: Piperacillin/Tazobact 3.375 gm Inj IVPB ONE (04:00)
--- NOTE | 2016-10-16 07:44 | CP.PCM.PN ---
<Karie Ruiz - Last Filed: 10/16/16 07:36> Subjective - Date & Time of Evaluation Date of Evaluation: 10/16/16 Time of Evaluation: 07:36 - Subjective Subjective: Surgery for Dr. Torres Pt s&eBonnie NOEL. Denies F/C/N/V/D/CP/SOB. +void + amb. pain controlled Objective - Vital Signs/Intake and Output Vital Signs (last 24 hours): Temp Pulse Resp BP Pulse Ox 98.6 F 71 19 104/62 96 10/16/16 05:16 10/16/16 05:16 10/16/16 05:16 10/16/16 05:16 10/16/16 05:16 Intake and Output: 10/16/16 10/16/16 06:59 18:59 Intake Total 1600 Balance 1600 - Medications Medications: Current Medications Acetaminophen (Tylenol 325mg Tab) 650 mg PO Q4 PRN PRN Reason: Fever >100.4 F Last Admin: 10/14/16 23:49 Dose: 650 mg Enoxaparin Sodium (Lovenox) 40 mg SC DAILY YUSUF PRN Reason: Protocol Last Admin: 10/15/16 12:19 Dose: 40 mg Piperacillin Sod/Tazobactam Sod (Zosyn 3.375 Gm Iv Premix) 3.375 gm in 50 mls @ 50 mls/hr IVPB Q6 [facility] Last Admin: 10/15/16 21:49 Dose: 50 mls/hr Sodium Chloride (Sodium Chloride 0.9%) 1,000 mls @ 999 mls/hr IV .Q1H1M [facility] Stop: 10/16/16 11:27 Last Admin: 10/15/16 12:19 Dose: 999 mls/hr Metronidazole 250 mg/ (Miscellaneous) 50 mls @ 50 mls/hr IVPB Q8 YUSUF Morphine Sulfate (Morphine) 4 mg IVP Q4 PRN PRN Reason: Pain, moderate (4-7) Ondansetron HCl (Zofran Inj) 4 mg IVP Q4 PRN PRN Reason: Nausea/Vomiting - Labs Labs: 10/15/16 05:00 10/15/16 05:00 PT 14.4 Seconds (9.8-13.1) H 10/15/16 05:00 INR 1.3 (0.9-1.2) H 10/15/16 05:00 APTT 28.5 Seconds (25.6-37.1) 10/15/16 05:00 - Constitutional Appears: No Acute Distress - Head Exam Head Exam: ATRAUMATIC, NORMAL INSPECTION, NORMOCEPHALIC - Eye Exam Eye Exam: EOMI, Normal appearance, PERRL Pupil Exam: NORMAL ACCOMODATION, PERRL - ENT Exam ENT Exam: Mucous Membranes Moist, Normal Exam - Neck Exam Neck Exam: Full ROM, Normal Inspection. absent: Lymphadenopathy - Respiratory Exam Respiratory Exam: Clear to Ausculation Bilateral, NORMAL BREATHING PATTERN - Cardiovascular Exam Cardiovascular Exam: REGULAR RHYTHM, +S1, +S2. absent: Murmur - GI/Abdominal Exam GI & Abdominal Exam: Soft, Tenderness, Normal Bowel Sounds. absent: Distended, Firm, Guarding, Rigid, Rebound Additional comments: Suprapubic TTP. - Exam Exam: NORMAL INSPECTION - Extremities Exam Extremities Exam: Full ROM, Normal Capillary Refill, Normal Inspection. absent : Joint Swelling, Pedal Edema - Back Exam Back Exam: NORMAL INSPECTION - Neurological Exam Neurological Exam: Alert, Awake, CN II-XII Intact, Normal Gait, Oriented x3 - Psychiatric Exam Psychiatric exam: Normal Affect, Normal Mood - Skin Skin Exam: Dry, Intact, Normal Color, Warm Assessment and Plan - Assessment and Plan (Free Text) Assessment: 50 F with Sigmoid Diverticulitis with microperforation with abscess Leukocytosis resolved Abscess too small for IR drainage and risky for bladder injury per IR C.w current mx IV antibiotics Plan d.w pt in detail Risk and benefit explained in detail. Will JIMMY Torres <Bernardo Torres - Last Filed: 10/19/16 22:15> Objective - Vital Signs/Intake and Output Vital Signs (last 24 hours): Temp Pulse Resp BP Pulse Ox 98.4 F 63 20 108/69 98 10/17/16 13:04 10/17/16 13:04 10/17/16 13:04 10/17/16 13:04 10/17/16 13:04 - Labs Labs: 10/17/16 06:00 10/15/16 05:00 PT 14.4 Seconds (9.8-13.1) H 10/15/16 05:00 INR 1.3 (0.9-1.2) H 10/15/16 05:00 APTT 28.5 Seconds (25.6-37.1) 10/15/16 05:00 Attending/Attestation - Attestation I have personally seen and examined this patient.: Yes I have fully participated in the care of the patient.: Yes I have reviewed all pertinent clinical information, including history, physical exam and plan: Yes Notes (Text): 10/19/16 22:13 Pt was seen and examined at bedside on 10/16/16 Agree with above note and assessment Pt with resolving Diverticulitis with abscess C.w iv antibiotics DC plan Plan d.w pt in detail Risk and benefit explained in detail
[2016-10-16] MEDS: Enoxaparin 40 mg Syringe SC SCH (08:38)
--- NOTE | 2016-10-16 08:44 | CP.PCM.PN ---
Subjective - Date & Time of Evaluation Date of Evaluation: 10/16/16 Time of Evaluation: 07:35 - Subjective Subjective: Patient seen and examined at bedside. Reports her abdominal pain persists, she tolerated water and will attempt to eat today. Denies chest pain, SOB, nausea or vomiting. Has normal urine output. No fever overnight. Reports she feels weak. Objective - Vital Signs/Intake and Output Vital Signs (last 24 hours): Temp Pulse Resp BP Pulse Ox 97.8 F 71 20 103/62 97 10/16/16 08:38 10/16/16 08:38 10/16/16 08:38 10/16/16 08:38 10/16/16 08:38 Intake and Output: 10/16/16 10/16/16 06:59 18:59 Intake Total 1600 Balance 1600 - Medications Medications: Current Medications Acetaminophen (Tylenol 325mg Tab) 650 mg PO Q4 PRN PRN Reason: Fever >100.4 F Last Admin: 10/14/16 23:49 Dose: 650 mg Enoxaparin Sodium (Lovenox) 40 mg SC DAILY YUSUF PRN Reason: Protocol Last Admin: 10/15/16 12:19 Dose: 40 mg Piperacillin Sod/Tazobactam Sod (Zosyn 3.375 Gm Iv Premix) 3.375 gm in 50 mls @ 50 mls/hr IVPB Q6 [facility] Last Admin: 10/15/16 21:49 Dose: 50 mls/hr Sodium Chloride (Sodium Chloride 0.9%) 1,000 mls @ 999 mls/hr IV .Q1H1M [facility] Stop: 10/16/16 11:27 Last Admin: 10/15/16 12:19 Dose: 999 mls/hr Metronidazole 250 mg/ (Miscellaneous) 50 mls @ 50 mls/hr IVPB Q8 [facility] Morphine Sulfate (Morphine) 4 mg IVP Q4 PRN PRN Reason: Pain, moderate (4-7) Ondansetron HCl (Zofran Inj) 4 mg IVP Q4 PRN PRN Reason: Nausea/Vomiting - Labs Labs: 10/15/16 05:00 10/15/16 05:00 PT 14.4 Seconds (9.8-13.1) H 10/15/16 05:00 INR 1.3 (0.9-1.2) H 10/15/16 05:00 APTT 28.5 Seconds (25.6-37.1) 10/15/16 05:00 - Constitutional Appears: No Acute Distress, Other (Ill) - Head Exam Head Exam: ATRAUMATIC, NORMOCEPHALIC - Eye Exam Eye Exam: EOMI, PERRL - ENT Exam ENT Exam: Mucous Membranes Moist - Neck Exam Neck Exam: Full ROM - Respiratory Exam Respiratory Exam: Clear to Ausculation Bilateral, NORMAL BREATHING PATTERN - Cardiovascular Exam Cardiovascular Exam: REGULAR RHYTHM, +S1, +S2 - GI/Abdominal Exam GI & Abdominal Exam: Guarding (to light palpation in LUQ and LLQ), Soft (obese) , Tenderness (to light palpation in LUQ and LLQ ), Normal Bowel Sounds. absent : Distended, Mass - Extremities Exam Extremities Exam: Full ROM. absent: Calf Tenderness, Pedal Edema - Back Exam Back Exam: absent: CVA tenderness (L), CVA tenderness (R) - Neurological Exam Neurological Exam: Alert, Awake, CN II-XII Intact, Oriented x3 - Psychiatric Exam Psychiatric exam: Flat Affect - Skin Skin Exam: Dry, Intact, Warm Assessment and Plan - Assessment and Plan (Free Text) Assessment: 50 yr old F admitted for lower abdominal pain and found to have recurrent CT findings for diverticulitis and abscess. Patient afebrile , BP has improved, abd pain and leukocytosis persist. Continue IV antibiotics, advance diet as tolerated, Surgery and IR are onboard. Plan: Diverticulitis with fluid collection/abscess -recurrent, chronic, - BCx: no growth x 24hrs -CT abd/pelvis: findings compatible with sigmoid colon diverticulitis and 4.1cm fluid collection in supra vesicle mesentery compatible with abscess - Day 3 of IV antibiotic (Zosyn 3.375mg IV Q6) -patient has GI appt with Dr. Kiser 12/13/16 for outpatient colonoscopy -IR on consult-Dr. Deleon: abscess not big enough for drainage, repeat CT in a couple of days to see if it increases in size -Surgery on consult-Dr. Torres: no surgical intervention at this time Elevated hemoglobin A1c - on review of labs, 6.5% 12/2015 - random glucose elevated - f/u repeat HbA1c -lipid panel wnl 05/03/16 PSVT - HR controlled at this time - Will hold metoprolol due to acute infection at this time - Can resume when patient is more stable Sepsis -resolved -leukocytosis, Tmax of 100.9F , CT scan finding of abscess - Lactate normal, hemodynamically stable (BP 95/61 mmHg) - monitor vitals - 1L NS bolus, continue IV fluids with NS 125cc/hr - Day 3 of IV antibiotic (Zosyn 3.375mg IV Q6) - Tylenol PRN fever - BCx: no growth x 24hrs DVT Prophylaxis -Lovenox 40mg SC QD -SCD's
[2016-10-16] MEDS ORDERED: metroNIDAZOLE 500mg/100ml NS 250 MG in Premixed IV 1 EA IVPB SCH (09:00)
[2016-10-16] MEDS: Piperacill/Tazo 3.375gm in Dex 3.375 GM/50 ML BAG IVPB SCH ×3 (11:09→21:41)
[2016-10-16 11:20] LABS: HEMOGLOBIN 11.8 g/dL (12.0-16.0); MEAN CELL VOLUME 87.6 fl (81.0-99.0); MEAN CORPUSCULAR HEMOGLOBIN 29.1 pg (27.0-31.0); MEAN CORPUSCULAR HGB CONC 33.2 g/dL (33.0-37.0); RBC 4.05 Mil/uL (3.80-5.20); RED CELL DISTRIBUTION WIDTH 12.9 % (11.5-14.5); WHITE BLOOD COUNT 10.8 K/uL (4.8-10.8)
[2016-10-17] MEDS: Piperacill/Tazo 3.375gm in Dex 3.375 GM/50 ML BAG IVPB SCH ×2 (03:41→09:40)
--- NOTE | 2016-10-17 06:45 | CP.PCM.PN ---
Objective - Vital Signs/Intake and Output Vital Signs (last 24 hours): Temp Pulse Resp BP Pulse Ox 98.6 F 71 19 113/74 96 10/17/16 05:00 10/17/16 05:00 10/17/16 05:00 10/17/16 05:00 10/17/16 05:00 Intake and Output: 10/16/16 10/17/16 18:59 06:59 Intake Total 800 Balance 800 - Medications Medications: Current Medications Acetaminophen (Tylenol 325mg Tab) 650 mg PO Q4 PRN PRN Reason: Fever >100.4 F Last Admin: 10/14/16 23:49 Dose: 650 mg Enoxaparin Sodium (Lovenox) 40 mg SC DAILY YUSUF PRN Reason: Protocol Last Admin: 10/16/16 08:38 Dose: 40 mg Piperacillin Sod/Tazobactam Sod (Zosyn 3.375 Gm Iv Premix) 3.375 gm in 50 mls @ 50 mls/hr IVPB Q6 [facility] Last Admin: 10/17/16 03:41 Dose: 50 mls/hr Morphine Sulfate (Morphine) 4 mg IVP Q4 PRN PRN Reason: Pain, moderate (4-7) Last Admin: 10/16/16 08:42 Dose: 4 mg Ondansetron HCl (Zofran Inj) 4 mg IVP Q4 PRN PRN Reason: Nausea/Vomiting - Labs Labs: 10/16/16 10:30 10/15/16 05:00 PT 14.4 Seconds (9.8-13.1) H 10/15/16 05:00 INR 1.3 (0.9-1.2) H 10/15/16 05:00 APTT 28.5 Seconds (25.6-37.1) 10/15/16 05:00
[2016-10-17 07:46] LABS: HEMOGLOBIN 11.7 g/dL (12.0-16.0); MEAN CELL VOLUME 87.3 fl (81.0-99.0); MEAN CORPUSCULAR HEMOGLOBIN 29.2 pg (27.0-31.0); MEAN CORPUSCULAR HGB CONC 33.5 g/dL (33.0-37.0); RBC 3.99 Mil/uL (3.80-5.20); RED CELL DISTRIBUTION WIDTH 13.1 % (11.5-14.5); WHITE BLOOD COUNT 9.1 K/uL (4.8-10.8)
[2016-10-17 08:25] VITALS: RESP 20
[2016-10-17] MEDS: Enoxaparin 40 mg Syringe SC SCH (09:39)
--- NOTE | 2016-10-17 11:50 | CP.PCM.PN ---
<JosephKarie - Last Filed: 10/17/16 11:48> Subjective - Date & Time of Evaluation Date of Evaluation: 10/17/16 Time of Evaluation: 11:49 - Subjective Subjective: Surgery for Dr. Torres Pt s&eBonnie NOEL. Denies F/C/n/V/D/CP/pain/ SOB. + BM + void + amb. Tolerating diet Objective - Vital Signs/Intake and Output Vital Signs (last 24 hours): Temp Pulse Resp BP Pulse Ox 98.1 F 71 20 103/46 L 96 10/17/16 08:25 10/17/16 08:25 10/17/16 08:25 10/17/16 08:25 10/17/16 08:25 - Medications Medications: Current Medications Acetaminophen (Tylenol 325mg Tab) 650 mg PO Q4 PRN PRN Reason: Fever >100.4 F Last Admin: 10/14/16 23:49 Dose: 650 mg Enoxaparin Sodium (Lovenox) 40 mg SC DAILY YUSUF PRN Reason: Protocol Last Admin: 10/17/16 09:39 Dose: 40 mg Piperacillin Sod/Tazobactam Sod (Zosyn 3.375 Gm Iv Premix) 3.375 gm in 50 mls @ 50 mls/hr IVPB Q6 YUSUF Last Admin: 10/17/16 09:40 Dose: 50 mls/hr Morphine Sulfate (Morphine) 4 mg IVP Q4 PRN PRN Reason: Pain, moderate (4-7) Last Admin: 10/16/16 08:42 Dose: 4 mg Ondansetron HCl (Zofran Inj) 4 mg IVP Q4 PRN PRN Reason: Nausea/Vomiting - Labs Labs: 10/17/16 06:00 10/15/16 05:00 PT 14.4 Seconds (9.8-13.1) H 10/15/16 05:00 INR 1.3 (0.9-1.2) H 10/15/16 05:00 APTT 28.5 Seconds (25.6-37.1) 10/15/16 05:00 - Constitutional Appears: No Acute Distress - Head Exam Head Exam: ATRAUMATIC, NORMAL INSPECTION, NORMOCEPHALIC - Eye Exam Eye Exam: EOMI, Normal appearance, PERRL Pupil Exam: NORMAL ACCOMODATION, PERRL - ENT Exam ENT Exam: Mucous Membranes Moist, Normal Exam - Neck Exam Neck Exam: Full ROM, Normal Inspection. absent: Lymphadenopathy - Respiratory Exam Respiratory Exam: Clear to Ausculation Bilateral, NORMAL BREATHING PATTERN - Cardiovascular Exam Cardiovascular Exam: REGULAR RHYTHM, +S1, +S2. absent: Murmur - GI/Abdominal Exam GI & Abdominal Exam: Soft, Normal Bowel Sounds. absent: Distended, Firm, Guarding, Rigid, Tenderness - Exam Exam: NORMAL INSPECTION - Extremities Exam Extremities Exam: Full ROM, Normal Inspection - Back Exam Back Exam: NORMAL INSPECTION - Neurological Exam Neurological Exam: Alert, Awake, CN II-XII Intact, Normal Gait, Oriented x3 - Psychiatric Exam Psychiatric exam: Normal Affect, Normal Mood - Skin Skin Exam: Dry, Intact, Normal Color, Warm Assessment and Plan - Assessment and Plan (Free Text) Assessment: 50 F with Sigmoid Diverticulitis with microperforation with abscess Leukocytosis resolved OK to DC for surgical standpoint with PO ABX if pt tolerate soft diet. F/U with Dr. Torres in 1-2 weeks in the office. Abscess too small for IR drainage and risky for bladder injury per IR C.w current mx antibiotics Plan d.w pt in detail Risk and benefit explained in detail. Will DW Dr. Torres <Bernardo Torres B - Last Filed: 10/19/16 22:19> Objective - Vital Signs/Intake and Output Vital Signs (last 24 hours): Temp Pulse Resp BP Pulse Ox 98.4 F 63 20 108/69 98 10/17/16 13:04 10/17/16 13:04 10/17/16 13:04 10/17/16 13:04 10/17/16 13:04 - Labs Labs: 10/17/16 06:00 10/15/16 05:00 PT 14.4 Seconds (9.8-13.1) H 10/15/16 05:00 INR 1.3 (0.9-1.2) H 10/15/16 05:00 APTT 28.5 Seconds (25.6-37.1) 10/15/16 05:00 Attending/Attestation - Attestation I have personally seen and examined this patient.: Yes I have fully participated in the care of the patient.: Yes I have reviewed all pertinent clinical information, including history, physical exam and plan: Yes Notes (Text): 10/19/16 22:18 Pt was seen and examined at bedside on 10/17/16 Agree with above note and assessment Pt with resolving Diverticulitis with abscess C.w iv antibiotics Pt can be DC home on Po antibiotics f/u as out pt Plan d.w pt in detail Risk and benefit explained in detail
[2016-10-17 13:05] VITALS: BP 108/69; PULSE 63; TEMP 98.4; O2SAT 98
--- NOTE | 2016-10-17 14:18 | CP.PCM.DIS ---
Provider - Provider Date of Admission: 10/14/16 20:28 Attending physician: Charito Ruby MD Primary care physician: Dr. Aguilera at [facility] Consults: Dr. Torres-Surgery; Dr. Deleon- IR, Time Spent in preparation of Discharge (in minutes): 30 Diagnosis - Discharge Diagnosis (1) Diverticulitis Status: Acute Priority: Medium Hospital Course - Lab Results Lab Results: Micro Results 10/14/16 21:30 Blood Blood Culture - Preliminary NO GROWTH AFTER 48 HOURS Most Recent Lab Values WBC 9.1 K/uL (4.8-10.8) 10/17/16 06:00 RBC 3.99 Mil/uL (3.80-5.20) 10/17/16 06:00 Hgb 11.7 g/dL (12.0-16.0) L 10/17/16 06:00 Hct 34.9 % (34.0-47.0) 10/17/16 06:00 MCV 87.3 fl (81.0-99.0) 10/17/16 06:00 MCH 29.2 pg (27.0-31.0) 10/17/16 06:00 MCHC 33.5 g/dL (33.0-37.0) 10/17/16 06:00 RDW 13.1 % (11.5-14.5) 10/17/16 06:00 Plt Count 521 K/uL (130-400) H 10/17/16 06:00 MPV 7.3 fl (7.2-11.7) 10/15/16 05:00 Neut % (Auto) 67.9 % (50.0-75.0) 10/15/16 05:00 Lymph % (Auto) 20.5 % (20.0-40.0) 10/15/16 05:00 [place] % (Auto) 8.9 % (0.0-10.0) 10/15/16 05:00 Eos % (Auto) 2.5 % (0.0-4.0) 10/15/16 05:00 Baso % (Auto) 0.2 % (0.0-2.0) 10/15/16 05:00 Neut # 7.8 K/uL (1.8-7.0) H 10/15/16 05:00 Lymph # 2.4 K/uL (1.0-4.3) 10/15/16 05:00 [place] # 1.0 K/uL (0.0-0.8) H 10/15/16 05:00 Eos # 0.3 K/uL (0.0-0.7) 10/15/16 05:00 Baso # 0.0 K/uL (0.0-0.2) 10/15/16 05:00 PT 14.4 Seconds (9.8-13.1) H 10/15/16 05:00 INR 1.3 (0.9-1.2) H 10/15/16 05:00 APTT 28.5 Seconds (25.6-37.1) 10/15/16 05:00 Sodium 142 mmol/l (132-148) 10/15/16 05:00 Potassium 3.8 MMOL/L (3.6-5.0) 10/15/16 05:00 Chloride 108 mmol/L (98-107) H 10/15/16 05:00 Carbon Dioxide 26 mmol/L (22-30) 10/15/16 05:00 Anion Gap 12 (10-20) 10/15/16 05:00 BUN 10 mg/dl (7-17) 10/15/16 05:00 Creatinine 0.6 mg/dL (0.7-1.2) L 10/15/16 05:00 Est GFR ( Amer) > 60 10/15/16 05:00 Est GFR (Non-Af Amer) > 60 10/15/16 05:00 Random Glucose 126 mg/dL (65-105) H 10/15/16 05:00 Lactic Acid 1.0 MMOL/L (0.7-2.1) 10/14/16 21:30 Calcium 8.7 mg/dL (8.4-10.2) 10/15/16 05:00 Phosphorus 3.7 mg/dl (2.5-4.5) 10/15/16 05:00 Magnesium 2.3 MG/DL (1.6-2.3) 10/15/16 05:00 Total Bilirubin 0.6 mg/dl (0.2-1.3) 10/15/16 05:00 AST 21 U/L (14-36) 10/15/16 05:00 ALT 31 U/L (9-52) 10/15/16 05:00 Alkaline Phosphatase 109 U/L (38-126) 10/15/16 05:00 Total Protein 7.2 G/DL (6.3-8.2) 10/15/16 05:00 Albumin 3.4 g/dL (3.5-5.0) L 10/15/16 05:00 Globulin 3.8 gm/dL (2.2-3.9) 10/15/16 05:00 Albumin/Globulin Ratio 0.9 (1.0-2.1) L 10/15/16 05:00 Urine Color Yellow (YELLOW) 10/15/16 00:14 Urine Clarity Clear (Clear) 10/15/16 00:14 Urine pH 7.0 (5.0-8.0) 10/15/16 00:14 Ur Specific [place] 1.018 (1.003-1.030) 10/15/16 00:14 Urine Protein Negative mg/dL (NEGATIVE) 10/15/16 00:14 Urine Glucose (UA) Neg mg/dL (Normal) 10/15/16 00:14 Urine Ketones Negative mg/dL (NEGATIVE) 10/15/16 00:14 Urine Blood Negative (NEGATIVE) 10/15/16 00:14 Urine Nitrate Negative (NEGATIVE) 10/15/16 00:14 Urine Bilirubin Negative (NEGATIVE) 10/15/16 00:14 Urine Urobilinogen 0.2-1.0 mg/dL (0.2-1.0) 10/15/16 00:14 Ur Leukocyte Esterase Neg Josy/uL (Negative) 10/15/16 00:14 Urine RBC (Auto) 1 /hpf (0-3) 10/15/16 00:14 Urine Microscopic WBC 1 /hpf (0-5) 10/15/16 00:14 Ur Squamous Epith Cells 1 /hpf (0-5) 10/15/16 00:14 Urine Bacteria Rare (<OCC) 10/15/16 00:14 Hepatitis C Antibody Negative (NEGATIVE) 10/15/16 05:00 - Hospital Course Hospital Course: 50 yr old F admitted for severe lower abdominal pain, fever and leukocytosis and found to have recurrent CT findings for diverticulitis and abscess. Surgery and IR were on board. Patient symptoms improved with IV antibiotics and NPO diet. Her leukocytosis resolved, she tolerated PO diet and remained afebrile x 48hrs. Patient was discharged stable with PO antibiotics Ciprofloxacin 500mg PO Q12 and Flagyl 500mg PO Q8 x 11 days. Patient was instructed to d/c Metoprolol as her BP was low-normal off of the medication, follow up with Dr. Fernandez at [facility] on 10/23/16 at 10:00am, follow up with Dr. Kiser at [facility] as scheduled 12/13/16 at 11:20am, follow up with Dr. Torres within 1-2 weeks, his office will contact you. If they haven't called you in 1-2 weeks, call [phone] to make an appt with him. - Date & Time of H&P Date of H&P: 10/14/16 Time of H&P: 21:08 Discharge Exam - Head Exam Head Exam: ATRAUMATIC, NORMAL INSPECTION, NORMOCEPHALIC - Eye Exam Eye Exam: EOMI, PERRL - ENT Exam ENT Exam: Mucous Membranes Moist - Neck Exam Neck exam: Full Rom - Respiratory Exam Respiratory Exam: Clear to PA & Lateral, NORMAL BREATHING PATTERN - Cardiovascular Exam Cardiovascular Exam: REGULAR RHYTHM, +S1, +S2 - GI/Abdominal Exam GI & Abdominal Exam: Normal Bowel Sounds, Soft (obese), Tenderness (mild diffuse ) - Extremities Exam Extremities exam: full ROM - Back Exam Back exam: absent: CVA tenderness (L), CVA tenderness (R) - Neurological Exam Neurological exam: Alert, CN II-XII Intact, Oriented x3 - Psychiatric Exam Psychiatric exam: Normal Affect, Normal Mood - Skin Skin Exam: Dry, Intact, Normal Color Discharge Plan - Discharge Medications Prescriptions: Ciprofloxacin [Cipro] 500 mg PO Q12 #22 tab metroNIDAZOLE [Flagyl] 500 mg PO Q8 #33 tab - Follow Up Plan Condition: STABLE Disposition: HOME/ ROUTINE Patient education suggested?: Yes Instructions: Diverticulitis (DC), Heart Healthy Diet (DC), Diverticulitis Diet (DC) Additional Instructions: -Take antibiotics as prescribed -Follow up with Dr. Fernandez at [facility] on 10/23/16 at 10:00am -Follow up with Dr. Kiser at [facility] as scheduled 12/13/16 at 11: 20am -Follow up with Dr. Torres within 1-2 weeks, his office will contact you. If they haven't called you in 1-2 weeks, call [phone] to make an appt with him. -discontinue Metoprolol 25mg PO QD (as your BP have been in the low normal range off of medication Referrals: Rashel ROBERTS,MD Erika [Medical Doctor] - Henry Fernandez MD [Resident] - Bernardo Torres MD [Staff Provider] -
== END 2016-10-17 15:14 | disposition home or self-care (01) | DRG 901 ==
LOC: H.ER 13:03 → H.ERHOLD 20:28 → H.TEL 22:45
PROVIDERS: ADMIT Family Medicine Geriatric Medicine; ATTEND Family Medicine Geriatric Medicine
DX: A41.9 Sepsis, unspecified organism (principal); R18.8 Other ascites; K57.32 Diverticulitis of large intestine without perforation or abscess without bleeding; I47.1 Supraventricular tachycardia; E66.9 Obesity, unspecified; Z83.3 Family history of diabetes mellitus

== ENCOUNTER 2016-12-17 09:08 | Day surgery (SDC) | payer SELFPAY ==
[2016-12-17] MEDS ORDERED: Lactated Ringer's 500 ML IV ONE (10:41)
[2016-12-17] MEDS ORDERED: Lidocaine 2% MPF (5 ml) Inj ONE (12:33)
[2016-12-17] MEDS ORDERED: Propofol 10 mg/ml Inj (20 ML) ONE (12:33)
[2016-12-17 13:06] VITALS: BP 121/67; PULSE 67; RESP 16; TEMP 97.2; O2SAT 99
== END 2016-12-17 13:07 | disposition home or self-care (01) ==
LOC: H.ENDO 09:08
PROVIDERS: ATTEND Internal Medicine Gastroenterology
DX: Z12.11 Encounter for screening for malignant neoplasm of colon (principal); K57.30 Diverticulosis of large intestine without perforation or abscess without bleeding; K64.8 Other hemorrhoids
CPT/HCPCS: 45378; J2704; J7120

== ENCOUNTER 2017-04-15 09:54 | Emergency (ER) | payer SELFPAY ==
[2017-04-15 10:23] VITALS: BMI 34.7
[2017-04-15 10:24] VITALS: BP 132/75; PULSE 69; RESP 16; TEMP 98.1; O2SAT 98
--- NOTE | 2017-04-15 11:22 | ED PDOC ---
HPI: Back Time Seen by Provider: 04/15/17 10:55 Chief Complaint (Nursing): Back Pain Chief Complaint (Provider): Back pain History Per: Patient History/Exam Limitations: no limitations Onset/Duration Of Symptoms: Days Current Symptoms Are (Timing): Still Present Quality Of Discomfort: "Pain" Previous Symptoms: Other (joint pain) Additional History Per: Patient Additional Complaint(s): 51yo female with history of cardiac arrhythmia, presents to ED with complaints of polyarthralgia including pain to bilateral hands, lower back and bilateral knees. She denies any falls, trauma or injuries. 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 She denies any fever or swelling. Patient has been taking Ibuprofen with some relief. She states she has not had any workup prior for arthritis. Past Medical History Reviewed: Historical Data, Nursing Documentation, Vital Signs Vital Signs: Last Vital Signs Temp 98.1 F 04/15/17 10:23 Pulse 69 04/15/17 10:23 Resp 16 04/15/17 10:23 BP 132/75 04/15/17 10:23 Pulse Ox 98 04/15/17 10:23 - Medical History PMH: Arthritis, Cardia Arrhythmia (PSVT) Denies: Asthma, Atrial Fibrillation, CHF, COPD, HIV, HTN, Hypercholesterolemia, Chronic Kidney Disease, Seizures - Surgical History Surgical History: Denies: CABG, Pacemaker - Family History Family History: States: Unknown Family Hx Denies: CAD - Home Medications Home Medications: Ambulatory Orders Medication Instructions Recorded Albuterol HFA [Ventolin HFA 90 1 - 2 puff IH Q4H PRN #1 bottle 01/23/17 mcg/actuation (8 g)] Levofloxacin [Levaquin] 500 mg PO DAILY #10 tablet 01/23/17 Naproxen [Naprosyn] 500 mg PO BID PRN #20 tablet 04/15/17 - Allergies Allergies/Adverse Reactions: Allergies Allergy/AdvReac Type Severity Reaction Status Date / Time No Known Allergies Allergy Verified 04/15/17 10:43 Review of Systems ROS Statement: Except As Marked, All Systems Reviewed And Found Negative Constitutional: Negative for: Fever Musculoskeletal: Positive for: Back Pain, Hand Pain (bilateral), Other (joint pain) Physical Exam - Reviewed Nursing Documentation Reviewed: Yes Vital Signs Reviewed: Yes - Physical Exam Appears: Positive for: Non-toxic (patient is obese) Head Exam: Positive for: ATRAUMATIC, NORMAL INSPECTION, NORMOCEPHALIC Skin: Positive for: Normal Color Neck: Positive for: Supple Cardiovascular/Chest: Positive for: Regular Rate, Rhythm Respiratory: Positive for: Normal Breath Sounds. Negative for: Respiratory Distress Back: Positive for: Other (lower back hypertenacity without vertebral tenderness ). Negative for: Vertebral Tenderness Extremity: Positive for: Normal ROM (full ROM of knees without crepidus), Tenderness (mild tenderness to bilateral hand, no focal tenderness, erythema, edema or deformity. ). Negative for: Deformity, Swelling Neurologic/Psych: Positive for: Alert, Oriented. Negative for: Motor/Sensory Deficits - ECG O2 Sat by Pulse Oximetry: 98 Medical Decision Making Medical Decision Making: Impression: Polyarthalgia Plan: -- Patient is afebrile in ER with no signs of acute medical emergency. Toradol 30 mg IM given for pain. Patient to be referred to clinic for likely arthritis workup. Scribe Attestation: Documented by Brandi Ghotra, acting as a scribe for John Baker DO. Provider Scribe Attestation: All medical record entries made by the Scribe were at my direction and personally dictated by me. I have reviewed the chart and agree that the record accurately reflects my personal performance of the history, physical exam, medical decision making, and the department course for this patient. I have also personally directed, reviewed, and agree with the discharge instructions and disposition. Disposition - Clinical Impression Clinical Impression: Polyarthralgia, Back pain - Disposition Referrals: [facility] [Outside] Condition: STABLE Additional Instructions: Folllowup with clinic for testing for arthritis. Return to ER for any new or worsening symptoms. Prescriptions: Naproxen [Naprosyn] 500 mg PO BID PRN #20 tablet PRN Reason: Pain, Moderate (4-7) Instructions: Naproxen (By mouth), Arthralgia (ED), Back Pain (ED), Arthritis ( ED) Forms: [facility] ([place]) Print Language: GRENADIAN
== END 2017-04-15 12:21 | disposition home or self-care (01) ==
LOC: H.ER 09:54
DX: M13.0 Polyarthritis, unspecified (principal)
CPT/HCPCS: 96372; 99282; J1885

== ENCOUNTER 2017-06-07 18:30 | Emergency (ER) | payer SELFPAY ==
[2017-06-07 18:30] VITALS: BMI 34.7
[2017-06-07 18:43] VITALS: BP 153/91; PULSE 98; RESP 18; TEMP 99.5; O2SAT 99
--- NOTE | 2017-06-07 19:28 | ED PDOC ---
HPI: Abdomen Time Seen by Provider: 06/07/17 18:56 Chief Complaint (Nursing): Abdominal Pain History Per: Patient History/Exam Limitations: no limitations Onset/Duration Of Symptoms: Other (1 week) Additional Complaint(s): 51 yo F complains of suprapubic pain, dysuria and fever x 1 week. Otherwise: (- ) nausea / vomiting, (-) diarrhea, (-) fever, (-) melena, (-) hematochezia. Past Medical History Vital Signs: Last Vital Signs Temp 99.5 F 06/07/17 18:41 Pulse 98 H 06/07/17 18:41 Resp 18 06/07/17 18:41 BP 153/91 H 06/07/17 18:41 Pulse Ox 99 06/07/17 19:59 - Medical History PMH: Arthritis, Cardia Arrhythmia (PSVT) Denies: Asthma, Atrial Fibrillation, CHF, COPD, HIV, HTN, Hypercholesterolemia, Chronic Kidney Disease, Seizures - Surgical History Surgical History: Denies: CABG, Pacemaker - Family History Family History: States: Unknown Family Hx Denies: CAD - Home Medications Home Medications: Ambulatory Orders Medication Instructions Recorded Albuterol HFA [Ventolin HFA 90 1 - 2 puff IH Q4H PRN #1 bottle 01/23/17 mcg/actuation (8 g)] Levofloxacin [Levaquin] 500 mg PO DAILY #10 tablet 01/23/17 Naproxen [Naprosyn] 500 mg PO BID PRN #20 tablet 04/15/17 Nitrofurantoin Macrocrystals 100 mg PO BID #20 cap 06/07/17 [Macrobid] Phenazopyridine [Pyridium] 200 mg PO BID PRN #6 tab 06/07/17 - Allergies Allergies/Adverse Reactions: Allergies Allergy/AdvReac Type Severity Reaction Status Date / Time No Known Allergies Allergy Verified 04/15/17 10:43 Review of Systems Constitutional: Positive for: Fever. Negative for: Weakness, Malaise Cardiovascular: Negative for: Chest Pain, Palpitations Respiratory: Negative for: Cough, Shortness of Breath Gastrointestinal: Positive for: Abdominal Pain. Negative for: Nausea, Vomiting Genitourinary Female: Positive for: Dysuria. Negative for: Frequency, Incontinence Skin: Negative for: Rash, Lesions Physical Exam - Physical Exam Comments: GENERALIZED APPEARANCE:Patient is awake, alert, oriented x3 in no acute distress. SKIN: Warm, dry; (-) cyanosis. EYES: (-) conjunctival pallor, (-) scleral icterus. ENMT: Mucous membranes moist. NECK: (-) tenderness, (-) stiffness, (-) lymphadenopathy. CHEST AND RESPIRATORY: (-) rales, (-) rhonchi, (-) wheezes; breath sounds equal bilaterally. HEART AND CARDIOVASCULAR: (-) irregularity; (-) murmur, (-) gallop. ABDOMEN AND GI: (-) distention. Bowel sounds active; (+) suprapubic tenderness, (-) guarding, (-) rebound, (-) palpable masses, (-) CVA tenderness. GENITOURINARY: (-) testicular tenderness EXTREMITIES: (-) deformity, (-) edema, (+) distal pulses. NEURO AND PSYCH: Mental status as above; (-) focal findings. - ECG O2 Sat by Pulse Oximetry: 99 Medical Decision Making Medical Decision Making: Impression : UTI Plan : -UA -Urine cx -Urine hcg Uhcg (-). UA : +trace leuks, +blood. Urine culture sent and pending. Urine results reviewed and results d/w the patient in great detail. Diagnosis of UTI d/w the patient. Given a dose of macrobid po and pyridium po. On re-evaluation, patient reports no other complaints. On exam, patient remains AAOx3, in no acute distress. Abdomen remains soft, with mild suprapubic tenderness. Based on history, exam and diagnostic results, plan will be for outpatient follow up. Patient instructed to follow-up with pmd or the clinic in 1-2 days without fail. Advised to take medication as prescribed. Return to the emergency room at any time for any new or worsening symptoms. Patient states she fully agrees with and understands discharge instructions. States that she agrees with the plan and disposition. Verbalized and repeated discharge instructions and plan. I have given the patient opportunity to ask any additional questions. Disposition - Clinical Impression Clinical Impression: UTI (urinary tract infection) - Patient ED Disposition Is Patient to be Admitted: No Counseled Patient/Family Regarding: Diagnosis, Need For Followup, Rx Given - Disposition Referrals: [facility] [Outside] Disposition: Routine/Home Disposition Time: 20:00 Condition: STABLE Additional Instructions: Thank you for letting us take care of you today. You were treated for UTI. The emergency medical care you received today was directed at your acute symptoms. If you were prescribed any medication, please fill it and take as directed. It may take several days for your symptoms to resolve. Return to the Emergency Department if your symptoms worsen, do not improve, or if you have any other problems. Please contact your doctor in 2 days for re-evaluation and follow up / or call one of the physicians/clinics you have been referred to that are listed on the Patient Visit Information form that is included in your discharge packet. Bring any paperwork you were given at discharge with you along with any medications you are taking to your follow up visit. Our treatment cannot replace ongoing medical care by a primary care provider (PCP) outside of the emergency department. Thank you for allowing the [facility] team to be part of your care today. If you had a urine culture test done : We will call you regarding any positive results Prescriptions: Nitrofurantoin Macrocrystals [Macrobid] 100 mg PO BID #20 cap Phenazopyridine [Pyridium] 200 mg PO BID PRN #6 tab PRN Reason: Other Instructions: Urinary Tract Infections in Adults Forms: [employer] (Lithuanian), [facility] ED School/Work Excuse Print Language: [place]ICAN CITIZEN
[2017-06-07 20:14] LABS: SQUAMOUS EPITHIAL 4 /hpf (0-5); URINE BACTERIA RARE (<OCC); URINE BILIRUBIN NEGATIVE (NEGATIVE); URINE BLOOD MODERATE (NEGATIVE); URINE CLARITY SLIGHTY-CLOUDY (Clear); URINE COLOR YELLOW (YELLOW); URINE GLUCOSE (UA) NEG (Normal); URINE LEUKOCYTE ESTERASE SMALL Leu/uL (Negative); URINE PROTEIN NEGATIVE (NEGATIVE); URINE UROBILINOGEN 0.2-1.0 mg/dL (0.2-1.0)
== END 2017-06-07 20:38 | disposition home or self-care (01) ==
LOC: H.ER 18:30
DX: N39.0 Urinary tract infection, site not specified (principal)

== ENCOUNTER 2017-06-18 14:05 | Emergency (ER) | payer SELFPAY ==
[2017-06-18 14:05] VITALS: BMI 34.7
--- NOTE | 2017-06-18 14:49 | ED PDOC ---
HPI: CCC, URI, Sore Throat Time Seen by Provider: 06/18/17 14:35 Chief Complaint (Nursing): Cough, Cold, Congestion Chief Complaint (Provider): Cough History Per: Patient, Family History/Exam Limitations: no limitations Have you had recent travel within the past 21 days to any of the following countries: [place], [place], [place] or [place]?: No Onset/Duration Of Symptoms: Days (1 week) Current Symptoms Are (Timing): Still Present Additional History Per: Patient Additional Complaint(s): Cough, nasal congestion, runny nose. Chest pain only on coughing. No dyspnea. No weakness, headaches, dizziness, abd pain, nausea, vomit, back pain. No leg pain, long distance travel, or hormone tx. Sore throat mild, but able to swallow. Past Medical History Reviewed: Nursing Documentation, Vital Signs Vital Signs: Last Vital Signs Temp 97.9 F 06/18/17 14:33 Pulse 82 06/18/17 14:33 Resp 20 06/18/17 14:33 BP 153/89 H 06/18/17 14:33 Pulse Ox 95 06/18/17 14:33 - Medical History PMH: Arthritis, Diabetes Denies: Asthma, Atrial Fibrillation, CHF, COPD, HIV, HTN, Hypercholesterolemia, Chronic Kidney Disease, Seizures - Surgical History Surgical History: No Surg Hx Denies: CABG, Pacemaker - Family History Family History: States: Unknown Family Hx Denies: CAD - Living Arrangements Living Arrangements: With Family - Social History Current smoker - smoking cessation education provided: No Alcohol: None Drugs: Denies - Home Medications Home Medications: Ambulatory Orders Medication Instructions Recorded Albuterol HFA [Ventolin HFA 90 1 - 2 puff IH Q4H PRN #1 bottle 01/23/17 mcg/actuation (8 g)] Levofloxacin [Levaquin] 500 mg PO DAILY #10 tablet 01/23/17 Naproxen [Naprosyn] 500 mg PO BID PRN #20 tablet 04/15/17 Nitrofurantoin Macrocrystals 100 mg PO BID #20 cap 06/07/17 [Macrobid] Phenazopyridine [Pyridium] 200 mg PO BID PRN #6 tab 06/07/17 Benzonatate [Tessalon Perles] 100 mg PO BID PRN 5 Days sgl 06/18/17 Ibuprofen [Motrin] 600 mg PO TID 7 Days tab 06/18/17 - Allergies Allergies/Adverse Reactions: Allergies Allergy/AdvReac Type Severity Reaction Status Date / Time No Known Allergies Allergy Verified 04/15/17 10:43 Review of Systems Constitutional: Negative for: Fever, Weakness ENT: Positive for: Nose Pain, Nose Discharge, Nose Congestion, Throat Pain. Negative for: Ear Pain Cardiovascular: Positive for: Chest Pain. Negative for: Palpitations, Orthopnea , Paroxysmal Noc. Dyspnea Respiratory: Positive for: Cough. Negative for: Shortness of Breath, Sputum Gastrointestinal: Negative for: Nausea, Vomiting, Abdominal Pain Genitourinary Female: Negative for: Dysuria Musculoskeletal: Negative for: Neck Pain, Shoulder Pain, Arm Pain, Back Pain Skin: Negative for: Rash Neurological: Negative for: Weakness, Numbness, Dizziness Physical Exam - Reviewed Nursing Documentation Reviewed: Yes Vital Signs Reviewed: Yes - Physical Exam Appears: Positive for: Non-toxic, No Acute Distress Head Exam: Positive for: ATRAUMATIC, NORMAL INSPECTION, NORMOCEPHALIC Skin: Positive for: Normal Color, Warm, DRY Eye Exam: Positive for: EOMI, Normal appearance, PERRL ENT: Positive for: Nasal Congestion. Negative for: Pharyngeal Erythema, Tonsillar Exudate Neck: Positive for: Normal, Painless ROM, Supple Cardiovascular/Chest: Positive for: Regular Rate, Rhythm. Negative for: Edema Respiratory: Positive for: CNT, Normal Breath Sounds Gastrointestinal/Abdominal: Positive for: Normal Exam, Bowel Sounds, Soft. Negative for: Tenderness Back: Positive for: Normal Inspection. Negative for: L CVA Tenderness, R CVA Tenderness Extremity: Positive for: Normal ROM. Negative for: Tenderness, Pedal Edema Neurologic/Psych: Positive for: Alert, Oriented - ECG ECG: Positive for: Interpreted By Me, Viewed By Me ECG Rhythm: Positive for: Normal QRS, Normal ST Segment, Sinus Rhythm O2 Sat by Pulse Oximetry: 95 Pulse Ox Interpretation: Normal - Progress ED Course And Treament: 1451: Stable. AAOx3. Pain free. Tolerated Po. No meds taken for pain. Took cough syrup at home with some relieve. Likely viral URI related symptoms. Disposition - Clinical Impression Clinical Impression: URI (upper respiratory infection) - Patient ED Disposition Is Patient to be Admitted: No Counseled Patient/Family Regarding: Studies Performed, Diagnosis, Need For Followup, Rx Given - Disposition Referrals: [facility] [Outside] - 06/19/17 Disposition: Routine/Home Disposition Time: 14:52 Condition: STABLE Additional Instructions: Return if not better in 3 days. Prescriptions: Benzonatate [Tessalon Perles] 100 mg PO BID PRN 5 Days sgl PRN Reason: Cough Ibuprofen [Motrin] 600 mg PO TID 7 Days tab Instructions: Viral Upper Respiratory Infection, Adult (DC)
[2017-06-19 11:03] VITALS: BP 120/78; PULSE 78; RESP 19; TEMP 97; O2SAT 98
--- NOTE | 2017-06-19 18:41 | CARD ---
APPROVED REPORT EKG Measurement Heart [id number] [id number] <Conclusion> Normal sinus rhythm with sinus arrhythmia Normal ECG
== END 2017-06-18 15:19 | disposition home or self-care (01) ==
LOC: H.ER 14:05
DX: J06.9 Acute upper respiratory infection, unspecified (principal)

== ENCOUNTER 2017-07-11 03:18 | Emergency (ER) | payer SELFPAY ==
[2017-07-11 03:19] VITALS: BMI 34.7
--- NOTE | 2017-07-11 04:07 | ED PDOC ---
HPI: General Adult Time Seen by Provider: 07/11/17 03:41 Chief Complaint (Nursing): Abdominal Pain Chief Complaint (Provider): abd pain, nausea History Per: Patient Additional Complaint(s): 51-year-old female presents to emergency Department with dysuria and lower abdominal pain that started 2 days ago associated with nausea and fever. Patient denies any vomiting. She states that she had 4 episodes of diarrhea earlier today. Patient was treated about one month ago for UTI. She has history of frequent urinary infections. Past Medical History Reviewed: Historical Data, Nursing Documentation, Vital Signs Vital Signs: Last Vital Signs Temp 100.4 F H 07/11/17 04:31 Pulse 115 H 07/11/17 03:31 Resp 17 07/11/17 03:31 BP 127/74 07/11/17 03:31 Pulse Ox 98 07/11/17 05:14 - Medical History PMH: Arthritis, Diabetes - Family History Family History: States: Unknown Family Hx - Living Arrangements Living Arrangements: With Family - Social History Current smoker - smoking cessation education provided: No Alcohol: None Drugs: Denies - Home Medications Home Medications: Ambulatory Orders Medication Instructions Recorded Albuterol HFA [Ventolin HFA 90 1 - 2 puff IH Q4H PRN #1 bottle 01/23/17 mcg/actuation (8 g)] Levofloxacin [Levaquin] 500 mg PO DAILY #10 tablet 01/23/17 Naproxen [Naprosyn] 500 mg PO BID PRN #20 tablet 04/15/17 Nitrofurantoin Macrocrystals 100 mg PO BID #20 cap 06/07/17 [Macrobid] Phenazopyridine [Pyridium] 200 mg PO BID PRN #6 tab 06/07/17 Benzonatate [Tessalon Perles] 100 mg PO BID PRN 5 Days sgl 06/18/17 Ibuprofen [Motrin] 600 mg PO TID 7 Days tab 06/18/17 Ibuprofen [Motrin] 600 mg PO Q6 PRN #15 tab 07/11/17 Levofloxacin [Levaquin] 500 mg PO DAILY #7 tablet 07/11/17 - Allergies Allergies/Adverse Reactions: Allergies Allergy/AdvReac Type Severity Reaction Status Date / Time No Known Allergies Allergy Verified 04/15/17 10:43 Review of Systems ROS Statement: Except As Marked, All Systems Reviewed And Found Negative Constitutional: Positive for: Fever, Chills Cardiovascular: Negative for: Chest Pain Respiratory: Negative for: Cough Gastrointestinal: Positive for: Nausea, Abdominal Pain, Diarrhea. Negative for : Vomiting, Constipation Genitourinary Female: Positive for: Dysuria, Frequency. Negative for: Vaginal Discharge, Vaginal Bleeding Physical Exam - Reviewed Nursing Documentation Reviewed: Yes Vital Signs Reviewed: Yes - Physical Exam Appears: Positive for: Well, Non-toxic, No Acute Distress Skin: Negative for: Rash Eye Exam: Positive for: Normal appearance Cardiovascular/Chest: Positive for: Regular Rate, Rhythm Respiratory: Positive for: Normal Breath Sounds. Negative for: Wheezing, Respiratory Distress Gastrointestinal/Abdominal: Positive for: Tenderness (suprapubic, LLQ, RLQ). Negative for: Guarding, Rebound Back: Negative for: L CVA Tenderness, R CVA Tenderness Extremity: Positive for: Normal ROM Neurologic/Psych: Positive for: Alert, Oriented - Laboratory Results Result Diagrams: 07/11/17 04:54 07/11/17 04:54 - ECG O2 Sat by Pulse Oximetry: 98 Pulse Ox Interpretation: Normal - Other Rad CXR X-Ray: Interpreted by Me, Viewed By Me X-Ray Interpretation: no acute finding Medical Decision Making Medical Decision Makin51 year old with fever, abd pain and dysuria Plan: CBC CMP Blood culture UA/Urine culture VBG IVF CXR PO motrin and tylenol UTI noted, 1 gram IV rocephin ordered. Repeat vital improved. Patient feels much better. Patient given rx for Levaquin and Motrin. Advised fluids, rest and clinic follow -up in 2-3 days. Patient is aware she can return to ED any time if acutely worse. Disposition - Clinical Impression Clinical Impression: UTI (urinary tract infection) - Patient ED Disposition Is Patient to be Admitted: No Counseled Patient/Family Regarding: Studies Performed, Diagnosis, Need For Followup, Rx Given - Disposition Referrals: [facility] [Outside] Disposition: Routine/Home Disposition Time: 05:31 Condition: STABLE Additional Instructions: Take prescription medicines as directed. Drink plenty of fluids. Follow-up with clinic in 2-3 days. Prescriptions: Ibuprofen [Motrin] 600 mg PO Q6 PRN #15 tab PRN Reason: Pain, Moderate (4-7) Levofloxacin [Levaquin] 500 mg PO DAILY #7 tablet Instructions: Urinary Tract Infections in Adults Forms: [facility] (Burmese) Print Language: NEPALI Results - Lab Results Lab Results: 07/11/17 07/11/17 07/11/17 04:54 04:54 04:54 WBC RBC Hgb Hct MCV MCH MCHC RDW Plt Count MPV Neut % (Auto) Lymph % (Auto) [facility] % (Auto) Eos % (Auto) Baso % (Auto) Neut # (Auto) Lymph # (Auto) [facility] # (Auto) Eos # (Auto) Baso # (Auto) pO2 VBG pH VBG pCO2 VBG HCO3 VBG Total CO2 VBG O2 Sat (Calc) VBG Base Excess VBG Potassium Sodium 143 Chloride 102 Glucose Lactate FiO2 Potassium 4.2 Carbon Dioxide 26 Anion Gap 19 BUN 10 Creatinine 0.6 L Est GFR ( Amer) > 60 Est GFR (Non-Af Amer) > 60 Random Glucose 148 H Calcium 9.2 Total Bilirubin 0.7 AST 31 ALT 39 Alkaline Phosphatase 142 H Total Protein 8.6 H Albumin 4.3 Globulin 4.3 H Albumin/Globulin Ratio 1.0 Venous Blood Potassium Urine Color Yellow Urine Clarity Turbid Urine pH 8.0 Ur Specific Donie 1.015 Urine Protein 100 Urine Glucose (UA) Neg Urine Ketones Negative Urine Blood Large Urine Nitrate Negative Urine Bilirubin Negative Urine Urobilinogen 0.2-1.0 Ur Leukocyte Esterase Large Urine RBC (Auto) 500 H Urine WBC Clumps (Auto) Many H Urine Microscopic WBC 831 H Urine Bacteria Occ H Influenza Typ A,B (EIA) Negative for flu a/b 07/11/17 07/11/17 04:54 04:51 WBC 12.5 H RBC 4.59 Hgb 13.6 Hct 41.2 MCV 89.6 MCH 29.7 MCHC 33.1 RDW 14.0 Plt Count 291 MPV 8.1 Neut % (Auto) 75.5 H Lymph % (Auto) 15.9 L [facility] % (Auto) 7.0 Eos % (Auto) 0.8 Baso % (Auto) 0.8 Neut # (Auto) 9.4 H Lymph # (Auto) 2.0 [facility] # (Auto) 0.9 H Eos # (Auto) 0.1 Baso # (Auto) 0.1 pO2 24 L VBG pH 7.42 VBG pCO2 47 VBG HCO3 27.5 VBG Total CO2 31.9 H VBG O2 Sat (Calc) 26.5 L VBG Base Excess 5.1 H VBG Potassium 4.4 Sodium 138.0 Chloride 103.0 Glucose 156 H Lactate 1.1 FiO2 21.0 Potassium Carbon Dioxide Anion Gap BUN Creatinine Est GFR ( Amer) Est GFR (Non-Af Amer) Random Glucose Calcium Total Bilirubin AST ALT Alkaline Phosphatase Total Protein Albumin Globulin Albumin/Globulin Ratio Venous Blood Potassium 4.4 Urine Color Urine Clarity Urine pH Ur Specific Donie Urine Protein Urine Glucose (UA) Urine Ketones Urine Blood Urine Nitrate Urine Bilirubin Urine Urobilinogen Ur Leukocyte Esterase Urine RBC (Auto) Urine WBC Clumps (Auto) Urine Microscopic WBC Urine Bacteria Influenza Typ A,B (EIA)
[2017-07-11] MEDS ORDERED: Sodium Chloride 0.9% 1,000 ML IV STA (04:16)
[2017-07-11 04:56] LABS: VENOUS BLOOD GAS BASE EXCESS 5.1 mmol/L (0.0-2.0); VENOUS BLOOD GAS PCO2 47 mmHg (40-60); VENOUS BLOOD GAS PO2 24 mm/Hg (30-55); VENOUS BLOOD PH 7.42 (7.32-7.43)
[2017-07-11 04:57] LABS: BASO # 0.1 K/uL (0.0-0.2); BASO % 0.8 % (0.0-2.0); EOS # 0.1 K/uL (0.0-0.7); EOS % 0.8 % (0.0-4.0); HEMOGLOBIN 13.6 g/dL (12.0-16.0); LYMPH % 15.9 % (20.0-40.0); MEAN CELL VOLUME 89.6 fl (81.0-99.0); MEAN CORPUSCULAR HEMOGLOBIN 29.7 pg (27.0-31.0); MEAN CORPUSCULAR HGB CONC 33.1 g/dL (33.0-37.0); MEAN PLATELET VOLUME 8.1 fl (7.2-11.7); MONO # 0.9 K/uL (0.0-0.8); NEUT # 9.4 K/uL (1.8-7.0); NEUT % 75.5 % (50.0-75.0); RBC 4.59 Mil/uL (3.80-5.20); WHITE BLOOD COUNT 12.5 K/uL (4.8-10.8)
[2017-07-11 05:02] LABS: URINE BACTERIA OCC (<OCC); URINE BILIRUBIN NEGATIVE (NEGATIVE); URINE BLOOD LARGE (NEGATIVE); URINE CLARITY TURBID (Clear); URINE COLOR YELLOW (YELLOW); URINE GLUCOSE (UA) NEG (Normal); URINE LEUKOCYTE ESTERASE LARGE Leu/uL (Negative); URINE PROTEIN 100 mg/dL (NEGATIVE); URINE UROBILINOGEN 0.2-1.0 mg/dL (0.2-1.0); WBC CLUMPS MANY /hpf
[2017-07-11] MEDS ORDERED: cefTRIAXone (Rocephin) 1 gm Inj ONE (05:05)
[2017-07-11 05:08] LABS: ALBUMIN 4.3 g/dL (3.5-5.0); ALT/SGPT 39 U/L (9-52); AST/SGOT 31 U/L (14-36); BLOOD UREA NITROGEN 10 mg/dl (7-17); CALCIUM 9.2 mg/dL (8.4-10.2); GFR AFRICAN-AMERICAN > 60; GFR NON-AFRICAN AMERICAN > 60
[2017-07-11 05:57] VITALS: TEMP 99.2
[2017-07-11 06:25] VITALS: BP 120/74; PULSE 97; RESP 18; O2SAT 99
--- NOTE | 2017-07-11 09:13 | RAD ---
HISTORY: fever COMPARISON: Chest radiograph dated 01/23/2017. FINDINGS: LUNGS: Stable patchy right middle lobe bronchiectasis. Focal consolidation. PLEURA: No significant pleural effusion identified, no pneumothorax apparent. CARDIOVASCULAR: Normal. OSSEOUS STRUCTURES: Unchanged. VISUALIZED UPPER ABDOMEN: Normal. OTHER FINDINGS: None. IMPRESSION: Stable right middle lobe bronchiectasis.
== END 2017-07-11 06:24 | disposition home or self-care (01) ==
LOC: H.ER 03:18
DX: N39.0 Urinary tract infection, site not specified (principal); E11.9 Type 2 diabetes mellitus without complications
CPT/HCPCS: 71045; 80053; 81003; 82803; 85025; 87040; 87086; 87181; 87804; 99284; J0696; J7040

== ENCOUNTER 2017-08-02 22:45 | Emergency (ER) | payer SELFPAY ==
[2017-08-02 22:45] VITALS: BMI 34.7
[2017-08-02 22:59] VITALS: O2SAT 100
[2017-08-02] MEDS ORDERED: Sodium Chloride 0.9% 1,000 ML IV STA (23:01)
[2017-08-02 23:02] VITALS: PULSE 80
[2017-08-02 23:21] LABS: BASO % 0.5 % (0.0-2.0); EOS # 0.2 K/uL (0.0-0.7); EOS % 2.2 % (0.0-4.0); HEMOGLOBIN 13.7 g/dL (12.0-16.0); LYMPH # 4.2 K/uL (1.0-4.3); LYMPH % 41.8 % (20.0-40.0); MEAN CELL VOLUME 88.4 fl (81.0-99.0); MEAN CORPUSCULAR HEMOGLOBIN 29.7 pg (27.0-31.0); MEAN CORPUSCULAR HGB CONC 33.6 g/dL (33.0-37.0); MEAN PLATELET VOLUME 8.2 fl (7.2-11.7); MONO # 0.9 K/uL (0.0-0.8); MONO % 9.1 % (0.0-10.0); NEUT # 4.6 K/uL (1.8-7.0); NEUT % 46.4 % (50.0-75.0); RBC 4.61 Mil/uL (3.80-5.20); RED CELL DISTRIBUTION WIDTH 14.6 % (11.5-14.5)
[2017-08-02 23:37] LABS: ALBUMIN 4.1 g/dL (3.5-5.0); ALT/SGPT 37 U/L (9-52); AST/SGOT 29 U/L (14-36); BLOOD UREA NITROGEN 14 mg/dl (7-17); CALCIUM 9.4 mg/dL (8.4-10.2); GFR AFRICAN-AMERICAN > 60; GFR NON-AFRICAN AMERICAN > 60
--- NOTE | 2017-08-03 00:11 | ED PDOC ---
HPI: Chest Pain Time Seen by Provider: 08/02/17 22:59 Chief Complaint (Nursing): Chest Pain Chief Complaint (Provider): Chest Pain History Per: Patient History/Exam Limitations: no limitations Onset/Duration Of Symptoms: Mins (x20) Current Symptoms Are (Timing): Still Present Additional Complaint(s): 51 year old female with medical history of SVT, presents to the emergency department with a complaint of palpitations associated with chest discomfort, dizziness and mild shortness of breath, onset prior to arrival. Patient reports palpitations lasted 20 minutes as she was talking on the phone and felt similar to an SVT episode 1 1/2 years ago. She denies any fever, chills, cough, nausea, vomiting or diarrhea. PMD: Sharron Tony MD Past Medical History Reviewed: Historical Data, Nursing Documentation, Vital Signs Vital Signs: Last Vital Signs Temp Pulse 80 08/02/17 23:02 Resp BP 147/83 08/02/17 23:02 Pulse Ox 100 08/03/17 00:21 - Medical History PMH: Arthritis, Cardia Arrhythmia (PSVT), Diabetes Denies: Asthma, Atrial Fibrillation, CHF, COPD, HIV, HTN, Hypercholesterolemia, Chronic Kidney Disease, Seizures - Surgical History Surgical History: Denies: CABG, Pacemaker - Family History Family History: States: Unknown Family Hx Denies: CAD - Social History Current smoker - smoking cessation education provided: No Alcohol: None Drugs: Denies - Home Medications Home Medications: Ambulatory Orders Medication Instructions Recorded Albuterol HFA [Ventolin HFA 90 1 - 2 puff IH Q4H PRN #1 bottle 01/23/17 mcg/actuation (8 g)] Levofloxacin [Levaquin] 500 mg PO DAILY #10 tablet 01/23/17 Naproxen [Naprosyn] 500 mg PO BID PRN #20 tablet 04/15/17 Nitrofurantoin Macrocrystals 100 mg PO BID #20 cap 06/07/17 [Macrobid] Phenazopyridine [Pyridium] 200 mg PO BID PRN #6 tab 06/07/17 Benzonatate [Tessalon Perles] 100 mg PO BID PRN 5 Days sgl 06/18/17 Ibuprofen [Motrin] 600 mg PO TID 7 Days tab 06/18/17 Ibuprofen [Motrin] 600 mg PO Q6 PRN #15 tab 07/11/17 Levofloxacin [Levaquin] 500 mg PO DAILY #7 tablet 07/11/17 - Allergies Allergies/Adverse Reactions: Allergies Allergy/AdvReac Type Severity Reaction Status Date / Time No Known Allergies Allergy Verified 04/15/17 10:43 Review of Systems ROS Statement: Except As Marked, All Systems Reviewed And Found Negative Constitutional: Negative for: Fever, Chills Cardiovascular: Positive for: Chest Pain (discomfort), Palpitations Respiratory: Positive for: Shortness of Breath (mild). Negative for: Cough Gastrointestinal: Negative for: Nausea, Vomiting, Diarrhea Neurological: Positive for: Dizziness Physical Exam - Reviewed Nursing Documentation Reviewed: Yes Vital Signs Reviewed: Yes - Physical Exam Appears: Positive for: Uncomfortable, In Acute Distress (mildly) Head Exam: Positive for: ATRAUMATIC, NORMAL INSPECTION, NORMOCEPHALIC Skin: Positive for: Pallor. Negative for: Normal Color Eye Exam: Positive for: Normal appearance ENT: Positive for: Normal ENT Inspection Neck: Positive for: Normal, Supple Cardiovascular/Chest: Positive for: Tachycardia. Negative for: Regular Rate, Rhythm Respiratory: Positive for: Normal Breath Sounds. Negative for: Wheezing, Respiratory Distress Gastrointestinal/Abdominal: Positive for: Normal Exam, Soft. Negative for: Tenderness Back: Positive for: Normal Inspection. Negative for: L CVA Tenderness, R CVA Tenderness Extremity: Positive for: Normal ROM (upper/lower). Negative for: Pedal Edema ( bilateral), Calf Tenderness (bilateral) Neurologic/Psych: Positive for: Alert, Oriented. Negative for: Motor/Sensory Deficits - Laboratory Results Result Diagrams: 08/02/17 23:00 08/02/17 23:00 - ECG O2 Sat by Pulse Oximetry: 100 (RA) Pulse Ox Interpretation: Normal Medical Decision Making Medical Decision Making: Initial Impression: Acute SVT Initial Plan: * EKG * CMP * TSH * Troponin I * CBC * PTT * PT * NS 1,000ml IV per 1,000mls/hr Time: 2300 --EKG: SVT at 184 BMP. Time: 201 --Upon provider reevaluation, patient reports she is asymptomatic and feels better. Patient has remain in NSR for the past 3 hours. She is medically stable and requires no further treatment in the ED at this time. Patient will be discharged home. Counseling was provided and all questions were answered regarding diagnosis. There is agreement to discharge plan. Return if symptoms persist or worsen. Clinical Impression: SVT Scribe Attestation: Documented by Mary Mccann, acting as a scribe for Breezy Sanchez MD. Provider Scribe Attestation: All medical record entries made by the Scribe were at my direction and personally dictated by me. I have reviewed the chart and agree that the record accurately reflects my personal performance of the history, physical exam, medical decision making, and the department course for this patient. I have also personally directed, reviewed, and agree with the discharge instructions and disposition. Disposition - Clinical Impression Clinical Impression: SVT (supraventricular tachycardia) - Patient ED Disposition Is Patient to be Admitted: No Counseled Patient/Family Regarding: Studies Performed, Diagnosis, Need For Followup - Disposition Disposition: Routine/Home Disposition Time: 02:02 Condition: STABLE Instructions: Supraventricular Tachycardia (SVT) Forms: [employer] (Martiniquais) Print Language: MICRONESIAN Critical Care Time - Critical Care Note Total Time (in mins): 30 Documented critical care: time excludes all time spent performing seperately billable procedures.
[2017-08-03 03:43] VITALS: BP 122/72; RESP 17
--- NOTE | 2017-08-04 16:47 | CARD ---
APPROVED REPORT EKG Measurement Heart [id number] <Conclusion> Supraventricular tachycardia Marked ST abnormality, possible inferolateral subendocardial injury Abnormal ECG
== END 2017-08-03 02:05 | disposition home or self-care (01) ==
LOC: H.ER 22:45
DX: I47.1 Supraventricular tachycardia (principal); E11.9 Type 2 diabetes mellitus without complications
CPT/HCPCS: 80053; 84443; 84484; 85025; 85610; 85730; 93005; 96361; 96374; 99283; J0153; J7040

== ENCOUNTER 2017-08-08 14:22 | Emergency (ER) | payer SELFPAY ==
[2017-08-08 14:23] VITALS: BMI 34.7
[2017-08-08 14:38] VITALS: O2SAT 100
--- NOTE | 2017-08-08 15:40 | ED PDOC ---
HPI: Chest Pain Chief Complaint (Nursing): Shortness Of Breath Chief Complaint (Provider): chest pain and SOB History Per: Patient History/Exam Limitations: no limitations Onset/Duration Of Symptoms: Hrs Current Symptoms Are (Timing): Better Context: Other (occurred after carrying heavy groceries up 3 flights of stairs) Severity: Moderate Pain Scale Rating Of: 8 Quality: "Pain" Associated Symptoms: Dyspnea. denies: Nausea, Diaphoresis, Syncope Exacerbating Factors: Exertion Alleviating Factors: None, Other (Adenosine 6mg administered by EMS prior to arrival) Additional History Per: Patient Additional Complaint(s): 51 yr old F presents to ED with complaint of chest pain, palpitations and SOB which began prior to arrival when she was carrying heavy groceries up 3 flights of stairs. Patient called EMS, was found to be in SVT and was given Adenosine 6mg IV prior to arrival. Symptoms have now improved. Patient reports this has occurred in the past, last episode was 6 days ago for which she came to ED, was evaluated and stable upon discharge with NSR and asymptomatic . PMHx includes PSVT, arthritis and diverticulitis. Reports [facility] and [facility] charts reviewed: Patient last saw cardiology (Dr. Rodriguez) in 10/2015, at that time was started on Metoprolol succinate 25mg PO QD, an exercise stress test was done which showed low effort tolerance, and was stopped due to fatigue and SOB but no ischemic EKG changes. Patient was instructed to have a holter study and f/u in 2weeks but she did not return to cardiology. She stopped taking her metoprolol on after hospital admission for sepsis secondary to diverticulitis. PMD: [facility] PMHx: PSVT, arthritis, diverticulitis, NIDDM2 (HbA1c 6.9 on 05/07/17) SurgHx: x 2 Meds: ciprofloxacin (UTI dx 07/29/17), ibuprofen PRN Allergies: NKDA - Risk Factors PE Risk Factors: Neg: Extremity Immobilization/Fx, Previous DVT, Previous PE, CHF TAD Risk Factors: Neg: Hypertension Past Medical History Vital Signs: Last Vital Signs Temp 98.9 F 08/08/17 20:31 Pulse 74 08/08/17 20:31 Resp 16 08/08/17 20:31 BP 150/58 L 08/08/17 20:31 Pulse Ox 100 05/18/18 20:31 - Medical History PMH: Arthritis, Cardia Arrhythmia (PSVT), Diabetes Denies: Asthma, Atrial Fibrillation, CHF, COPD, HIV, HTN, Hypercholesterolemia, Chronic Kidney Disease, Seizures - Surgical History Surgical History: Denies: CABG, Pacemaker - Family History Family History: States: Unknown Family Hx Denies: CAD - Home Medications Home Medications: Ambulatory Orders Medication Instructions Recorded Garlic [Odor Free Garlic-X] 1 tab PO DAILY 08/08/17 Metoprolol Tartrate 25 mg PO DAILY #5 tablet 08/08/17 [place]ahu[place]-3 Fatty Acids [[place]ahu[place]-3] 1 cap PO DAILY 08/08/17 - Allergies Allergies/Adverse Reactions: Allergies Allergy/AdvReac Type Severity Reaction Status Date / Time No Known Allergies Allergy Verified 08/08/17 14:31 PATRICK Risk Score for UA/NSTEMI - PATRICK Risk Score Age > 64: NO 3 or more CAD Risk Factors: NO Known CAD (Stenosis greater than 50%): NO Aspirin use in past 7 days: NO Severe Angina: NO EKG ST changes greater than 0.5mm: NO PATRICK Score: 0 Risk %: 5% Curb-65 Severity Score - CURB-65 Severity Score Confusion: No Curb-65 Score: 0 Percentage 30-day mortality: 0.6% Wells Criteria for PE - Wells Criteria for Pulmonary Embolism Clinical Signs and Symptoms of DVT: No P.E is #1 Diagnosis, or Equally Likely: No Heart Rate >100: Yes Immobilization at least 3 days;Surgery previous 4 weeks: No Previous, objectively diagnosed PE or DVT: No Hemoptysis: No Malignancy w/treatment within 6 months, or palliative: No Total Score: 1.5 Review of Systems Constitutional: Negative for: Fever, Chills Eyes: Negative for: Vision Change ENT: Negative for: Nose Discharge, Throat Pain Cardiovascular: Positive for: Chest Pain, Palpitations. Negative for: Light Headedness Respiratory: Positive for: SOB with Exertion. Negative for: Cough, Hemoptysis, Sputum, Wheezing, Other Gastrointestinal: Negative for: Nausea, Vomiting, Abdominal Pain, Diarrhea Genitourinary Female: Negative for: Dysuria Musculoskeletal: Negative for: Neck Pain, Shoulder Pain, Arm Pain Skin: Negative for: Rash, Lesions Neurological: Negative for: Weakness, Confusion, Dizziness Psych: Positive for: Anxiety Physical Exam - Physical Exam Appears: Positive for: No Acute Distress Head Exam: Positive for: ATRAUMATIC, NORMOCEPHALIC Skin: Positive for: Normal Color, Warm, Dry Eye Exam: Positive for: EOMI, PERRL ENT: Negative for: Pharyngeal Erythema, Tonsillar Exudate Neck: Positive for: Painless ROM, Supple Cardiovascular/Chest: Positive for: Regular Rate, Rhythm. Negative for: Gallop , Murmur Respiratory: Positive for: Normal Breath Sounds. Negative for: Crackles, Rales , Rhonchi Pulses-Carotid (L): 2+ Pulses-Carotid (R): 2+ Pulses-Radial (L): 2+ Pulses-Radial (R): 2+ Gastrointestinal/Abdominal: Positive for: Bowel Sounds, Soft. Negative for: Tenderness Back: Positive for: Normal Inspection Extremity: Positive for: Normal ROM. Negative for: Pedal Edema, Calf Tenderness , Swelling Lymphatic: Negative for: Adenopathy Neurologic/Psych: Positive for: Alert, qa tester II-XII (grossly intact), Oriented, Mood/Affect (normal/full range). Negative for: Motor/Sensory Deficits, Aphasia - Laboratory Results Result Diagrams: 08/08/17 16:15 08/08/17 16:15 - ECG O2 Sat by Pulse Oximetry: 100 - Progress ED Course And Treament: -EKG: NSR, no ST-T changes -CBC w/diff: normal -troponin: -PT/INR, PTT: normal -CXR: right middle lobe infiltrate with interstitial changes, unchanged when compared to prior -pro-BNP: normal -monitoring tech: NSR, rate 84 bpm -17:24 : Patient reports symptoms have improved, Disposition - Clinical Impression Clinical Impression: SVT (supraventricular tachycardia) - Patient ED Disposition Is Patient to be Admitted: No Counseled Patient/Family Regarding: Studies Performed, Diagnosis, Need For Followup, Rx Given - Disposition Referrals: [employer] [Outside] Formerly [facility] [Outside] Disposition: Routine/Home Disposition Time: 20:35 Condition: IMPROVED Additional Instructions: YOU HAVE AN APPOINTMENT ON Friday08/12/17 AT THE CLINIC. Prescriptions: Metoprolol Tartrate 25 mg PO DAILY #5 tablet Instructions: Paroxysmal Supraventricular Tachycardia (DC), Supraventricular Tachycardia (SVT) Forms: [employer] (Icelandic) Print Language: MONGOLIAN
[2017-08-08 16:24] LABS: BASO % 0.2 % (0.0-2.0); EOS # 0.2 K/uL (0.0-0.7); EOS % 1.6 % (0.0-4.0); HEMOGLOBIN 13.4 g/dL (12.0-16.0); LYMPH # 1.7 K/uL (1.0-4.3); LYMPH % 18.2 % (20.0-40.0); MEAN CELL VOLUME 88.4 fl (81.0-99.0); MEAN CORPUSCULAR HEMOGLOBIN 30.1 pg (27.0-31.0); MEAN PLATELET VOLUME 7.6 fl (7.2-11.7); MONO # 0.7 K/uL (0.0-0.8); MONO % 7.8 % (0.0-10.0); NEUT # 6.8 K/uL (1.8-7.0); NEUT % 72.2 % (50.0-75.0); RBC 4.46 Mil/uL (3.80-5.20); RED CELL DISTRIBUTION WIDTH 13.7 % (11.5-14.5); WHITE BLOOD COUNT 9.4 K/uL (4.8-10.8)
[2017-08-08 16:48] LABS: ALB/GLOB RATIO 0.9 (1.0-2.1); ALBUMIN 3.7 g/dL (3.5-5.0); ALT/SGPT 40 U/L (9-52); AST/SGOT 26 U/L (14-36); BLOOD UREA NITROGEN 10 mg/dl (7-17); GFR AFRICAN-AMERICAN > 60; GFR NON-AFRICAN AMERICAN > 60
[2017-08-08 16:54] LABS: B-TYPE NATRIURETIC PEPTIDE 62.2 pg/ml (0-900)
--- NOTE | 2017-08-08 17:02 | RAD ---
HISTORY: chest pain, SOB, palpitations COMPARISON: 07/11/2017 TECHNIQUE: Chest PA and lateral FINDINGS: LUNGS: Right middle lobe infiltrate with interstitial changes throughout the right lung, not significant changed. PLEURA: No significant pleural effusion identified. No pneumothorax apparent. CARDIOVASCULAR: Normal. OSSEOUS STRUCTURES: No significant abnormalities. VISUALIZED UPPER ABDOMEN: Normal. OTHER FINDINGS: None. IMPRESSION: Right middle lobe infiltrate with interstitial changes throughout the right lung, not significant changed.
[2017-08-08 18:25] LABS: PROTHROMBIN TIME 11.4 Seconds (9.8-13.1)
[2017-08-08 20:33] VITALS: BP 150/58; PULSE 74; RESP 16; TEMP 98.9
--- NOTE | 2017-08-09 11:31 | CARD ---
APPROVED REPORT EKG Measurement Heart [id number] MO [id number] <Conclusion> Normal sinus rhythm Normal ECG
== END 2017-08-08 20:36 | disposition home or self-care (01) ==
LOC: H.ER 14:22
DX: I47.1 Supraventricular tachycardia (principal); E11.9 Type 2 diabetes mellitus without complications

== ENCOUNTER 2017-09-10 21:51 | Emergency (ER) | payer OTHER, SELFPAY ==
[2017-09-10 21:51] VITALS: BMI 34.7
--- NOTE | 2017-09-10 22:20 | ED PDOC ---
HPI: SOB/CHF/COPD Time Seen by Provider: 09/10/17 22:12 Chief Complaint (Nursing): Shortness Of Breath History Per: Patient, Family History/Exam Limitations: no limitations Onset/Duration Of Symptoms: Mins Current Symptoms Are (Timing): Still Present Initiating Event: Out Of Medications, Other (Excitement at wedding) Additional Complaint(s): Hx of DM, SVT presenting with SVT. Patient states that she was at a wedding and was having some beer and was in a hot room, felt very excited and then 30 minutes prior to arrival started having palpitations with shortness of breath and chest pressure, states that this has happened to her twice before. States that she ran out of her metoprolol yesterday as well. No recent illnesses, no cough. Past Medical History Reviewed: Historical Data, Nursing Documentation, Vital Signs Vital Signs: Last Vital Signs Temp 98.2 F 09/10/17 21:59 Pulse 185 H 09/10/17 21:59 Resp 22 09/10/17 21:59 BP 120/71 09/10/17 21:59 Pulse Ox 97 09/11/17 00:59 - Medical History PMH: Arthritis, Cardia Arrhythmia (SVT), Diabetes Denies: Asthma, Atrial Fibrillation, CHF, COPD, HIV, HTN, Hypercholesterolemia, Chronic Kidney Disease, Seizures - Surgical History Surgical History: Denies: CABG, Pacemaker - Family History Family History: States: Unknown Family Hx Denies: CAD - Home Medications Home Medications: Ambulatory Orders Medication Instructions Recorded Garlic [Odor Free Garlic-X] 1 tab PO DAILY 08/08/17 Metoprolol Tartrate 25 mg PO DAILY #5 tablet 08/08/17 [place]-3 Fatty Acids [[place]-3] 1 cap PO DAILY 08/08/17 Metoprolol Tartrate 25 mg PO DAILY #20 tablet 09/11/17 - Allergies Allergies/Adverse Reactions: Allergies Allergy/AdvReac Type Severity Reaction Status Date / Time No Known Allergies Allergy Verified 08/08/17 14:31 Review of Systems ROS Statement: Except As Marked, All Systems Reviewed And Found Negative Cardiovascular: Positive for: Chest Pain, Palpitations Respiratory: Positive for: Shortness of Breath Physical Exam - Reviewed Nursing Documentation Reviewed: Yes Vital Signs Reviewed: Yes - Physical Exam Appears: Positive for: Well, Non-toxic, Uncomfortable Head Exam: Positive for: ATRAUMATIC, NORMAL INSPECTION, NORMOCEPHALIC Skin: Positive for: Normal Color, Warm, DRY Eye Exam: Positive for: EOMI, Normal appearance, PERRL ENT: Positive for: Normal ENT Inspection Neck: Positive for: Normal, Painless ROM Cardiovascular/Chest: Positive for: Tachycardia Respiratory: Positive for: CNT, Normal Breath Sounds Gastrointestinal/Abdominal: Positive for: Normal Exam, Soft Back: Positive for: Normal Inspection Extremity: Positive for: Normal ROM Neurologic/Psych: Positive for: Alert, Oriented - Laboratory Results Result Diagrams: 09/10/17 22:55 09/10/17 22:55 - ECG ECG: Positive for: Interpreted By Me, Viewed By Me ECG Rhythm: Positive for: SVT O2 Sat by Pulse Oximetry: 97 Pulse Ox Interpretation: Normal - Critical Care Total Time (In Min): 30 Documented Critical Care: Time excludes all time spent performint seperately billable procedures Medical Decision Making Medical Decision MakinPM A/P: Hx of DM and SVT presenting with SVT -patient was immediately placed in room, placed on gambling monitor, IV, O2 established -repeat EKG confirmed SVT -6mg of adenosine pushed with successful cardioversion to NSR at HR 95, post EKGs established -patient tolerated adenosine well -will get labs, continue to monitor in ED 1AM -Patient monitored in ED for 3 hours without any issues -Will discharge home with refill for metoprolol -Advised to followup with cardiology as soon as possible. Disposition - Clinical Impression Clinical Impression: SVT (supraventricular tachycardia) - Patient ED Disposition Is Patient to be Admitted: No Counseled Patient/Family Regarding: Studies Performed, Diagnosis, Need For Followup, Rx Given - Disposition Referrals: [facility] [Outside] Disposition: Routine/Home Disposition Time: 00:58 Condition: IMPROVED Prescriptions: Metoprolol Tartrate 25 mg PO DAILY #20 tablet Instructions: Supraventricular Tachycardia (SVT) Forms: [employer] (Lithuanian) Print Language: YI
[2017-09-10 22:57] LABS: BASO # 0.1 K/uL (0.0-0.2); BASO % 0.5 % (0.0-2.0); EOS # 0.2 K/uL (0.0-0.7); EOS % 1.6 % (0.0-4.0); HEMOGLOBIN 13.9 g/dL (12.0-16.0); LYMPH # 3.8 K/uL (1.0-4.3); LYMPH % 34.8 % (20.0-40.0); MEAN CELL VOLUME 88.2 fl (81.0-99.0); MEAN CORPUSCULAR HEMOGLOBIN 29.4 pg (27.0-31.0); MEAN CORPUSCULAR HGB CONC 33.4 g/dL (33.0-37.0); MEAN PLATELET VOLUME 7.9 fl (7.2-11.7); MONO # 0.7 K/uL (0.0-0.8); MONO % 6.7 % (0.0-10.0); NEUT # 6.2 K/uL (1.8-7.0); NEUT % 56.4 % (50.0-75.0); NRBC % 0.1 % (0.0-0.0); RBC 4.72 Mil/uL (3.80-5.20); RED CELL DISTRIBUTION WIDTH 14.6 % (11.5-14.5)
[2017-09-10 23:06] LABS: ALBUMIN 3.9 g/dL (3.5-5.0); ALT/SGPT 36 U/L (9-52); AST/SGOT 29 U/L (14-36); BLOOD UREA NITROGEN 11 mg/dl (7-17); CALCIUM 9.1 mg/dL (8.4-10.2); GFR AFRICAN-AMERICAN > 60; GFR NON-AFRICAN AMERICAN > 60
[2017-09-10 23:08] LABS: INR 0.9 (0.9-1.2); PARTIAL THROMBOPLASTIN TIME 28.1 Seconds (25.6-37.1); PROTHROMBIN TIME 10.2 Seconds (9.8-13.1)
[2017-09-11 01:20] VITALS: BP 119/59; PULSE 75; RESP 18; TEMP 98.3; O2SAT 100
--- NOTE | 2017-09-11 07:57 | CARD ---
APPROVED REPORT EKG Measurement Heart [id number] DC [id number] [id number] <Conclusion> Normal sinus rhythm Nonspecific ST abnormality Abnormal ECG
--- NOTE | 2017-09-11 10:37 | RAD ---
PROCEDURE: CHEST RADIOGRAPH, 1 VIEW HISTORY: svt COMPARISON: 08/08/2017 FINDINGS: LUNGS: Inspiration is shallow. Increased opacity right infrahilar - patchy infiltrate here possible slight increase in conspicuity. Increased pulmonary venous congestion accentuated by vascular crowding as well PLEURA: No pneumothorax or pleural fluid seen. CARDIOVASCULAR: Mild cardiomegaly suspect even allowing for the inspirationIncreased pulmonary venous congestion - -accentuated by shallow lung volumes and vascular crowding OSSEOUS STRUCTURES: No significant abnormalities. VISUALIZED UPPER ABDOMEN: Normal. OTHER FINDINGS: None. IMPRESSION: Interval increased density/opacity right infrahilar - worsening patchy infiltrate here needs to be considered. The concomitant pulmonary venous congestion likely accentuates this appearance . Clinical correlation and follow-up recommended
== END 2017-09-11 01:20 | disposition home or self-care (01) ==
LOC: H.ER 21:51
DX: I47.1 Supraventricular tachycardia (principal); E11.9 Type 2 diabetes mellitus without complications; J44.9 Chronic obstructive pulmonary disease, unspecified

== ENCOUNTER 2017-10-09 16:02 | Observation (INO) | payer SELFPAY ==
[2017-10-09 16:02] VITALS: BMI 34.7
[2017-10-09] MEDS ORDERED: Sodium Chloride 0.9% 1,000 ML IV STA (16:21)
--- NOTE | 2017-10-09 16:24 | ED PDOC ---
HPI: Chest Pain Time Seen by Provider: 10/09/17 16:20 Chief Complaint (Nursing): Chest Pain History Per: Patient Onset/Duration Of Symptoms: Mins (30) Current Symptoms Are (Timing): Still Present Severity: Severe Pain Scale Rating Of: 6 Quality: Aching Associated Symptoms: Syncope Additional Complaint(s): Palpitations and chest pain x 30 min [employer] [facility] ED. Assoc with dizziness and mild SOB. Past Medical History Vital Signs: Last Vital Signs Temp Pulse 189 H 10/09/17 16:08 Resp 28 H 10/09/17 16:08 BP 137/83 10/09/17 16:08 Pulse Ox 100 10/09/17 16:08 - Medical History PMH: Arthritis, Cardia Arrhythmia (SVT), Diabetes, Diverticulitis, Pneumonia Denies: Asthma, Atrial Fibrillation, CHF, COPD, HIV, HTN, Hypercholesterolemia, Chronic Kidney Disease, Seizures - Surgical History Surgical History: Denies: CABG, Pacemaker - Family History Family History: States: Unknown Family Hx Denies: CAD - Home Medications Home Medications: Ambulatory Orders Medication Instructions Recorded Garlic [Odor Free Garlic-X] 1 tab PO DAILY 08/08/17 Metoprolol Tartrate 25 mg PO DAILY #5 tablet 08/08/17 [place]-3 Fatty Acids [Lamona-3] 1 cap PO DAILY 08/08/17 Metoprolol Tartrate 25 mg PO DAILY #20 tablet 09/11/17 - Allergies Allergies/Adverse Reactions: Allergies Allergy/AdvReac Type Severity Reaction Status Date / Time No Known Allergies Allergy Verified 08/08/17 14:31 Review of Systems ROS Statement: Except As Marked, All Systems Reviewed And Found Negative Cardiovascular: Positive for: Chest Pain, Palpitations Respiratory: Positive for: Shortness of Breath Neurological: Positive for: Dizziness Physical Exam - Reviewed Nursing Documentation Reviewed: Yes Vital Signs Reviewed: Yes - Physical Exam Appears: Positive for: Non-toxic, Uncomfortable Head Exam: Positive for: ATRAUMATIC, NORMAL INSPECTION, NORMOCEPHALIC Skin: Positive for: Normal Color, Warm, DRY Eye Exam: Positive for: EOMI, Normal appearance, PERRL ENT: Positive for: Normal ENT Inspection Neck: Positive for: Normal, Painless ROM Cardiovascular/Chest: Positive for: Regular Rate, Rhythm, Tachycardia Respiratory: Positive for: CNT, Normal Breath Sounds Gastrointestinal/Abdominal: Positive for: Normal Exam, Soft Back: Positive for: Normal Inspection Extremity: Positive for: Normal ROM Neurologic/Psych: Positive for: Alert, Oriented - ECG ECG Rhythm: Positive for: SVT O2 Sat by Pulse Oximetry: 100 - Progress Re-evaluation Time: 16:23 Condition: Improved (NSR after administration Adenosine 6 mg BP 143/79) - Critical Care Total Time (In Min): 30 Disposition - Clinical Impression Clinical Impression: Chest pain, SVT (supraventricular tachycardia) - Patient ED Disposition Is Patient to be Admitted: Yes - Disposition Disposition Time: 16:24 Condition: FAIR - Pt Status Changed To: Hospital Disposition Of: Observation - POA Present On Arrival: None
[2017-10-09 16:40] LABS: BASO % 0.2 % (0.0-2.0); EOS # 0.2 K/uL (0.0-0.7); EOS % 1.6 % (0.0-4.0); HEMOGLOBIN 14.2 g/dL (12.0-16.0); LYMPH # 4.6 K/uL (1.0-4.3); LYMPH % 49.5 % (20.0-40.0); MEAN CELL VOLUME 88.7 fl (81.0-99.0); MEAN CORPUSCULAR HEMOGLOBIN 29.8 pg (27.0-31.0); MEAN CORPUSCULAR HGB CONC 33.6 g/dL (33.0-37.0); MEAN PLATELET VOLUME 7.9 fl (7.2-11.7); MONO # 0.8 K/uL (0.0-0.8); NEUT # 3.7 K/uL (1.8-7.0); NEUT % 39.7 % (50.0-75.0); RBC 4.76 Mil/uL (3.80-5.20); RED CELL DISTRIBUTION WIDTH 13.8 % (11.5-14.5); WHITE BLOOD COUNT 9.4 K/uL (4.8-10.8)
[2017-10-09 17:00] LABS: ALB/GLOB RATIO 1.1 (1.0-2.1); ALBUMIN 4.5 g/dL (3.5-5.0); ALT/SGPT 35 U/L (9-52); AST/SGOT 31 U/L (14-36); BLOOD UREA NITROGEN 11 mg/dl (7-17); CALCIUM 9.3 mg/dL (8.4-10.2); GFR AFRICAN-AMERICAN > 60; GFR NON-AFRICAN AMERICAN > 60
--- NOTE | 2017-10-09 18:21 | RAD ---
Date of service: 10/09/2017 HISTORY: SVT COMPARISON: 09/10/2017. FINDINGS: LUNGS: The lungs are clear. PLEURA: No significant pleural effusion identified, no pneumothorax apparent. CARDIOVASCULAR: Normal. OSSEOUS STRUCTURES: No significant abnormalities. VISUALIZED UPPER ABDOMEN: Normal. OTHER FINDINGS: None. IMPRESSION: No active pulmonary disease.
--- NOTE | 2017-10-09 19:39 | CP.PCM.HP ---
History of Present Illness - History of Present Illness History of Present Illness: Hx taken from patient and medical records Full code PMD: MNC 51 y/o F with PMHx of recurrent SVT and NIDDM presented to ED after episode of palpitations and SOB while she was cooking at home this afternoon. Patient has long known Hx of SVT and had been taking Metoprolol XL before but ran out of the medication 1 M/A and has not been taking in since then. Denies CP, vomiting , dizziness, nausea, headaches. When she presented to ED, EKG showed SVT she was given 6 mg of adenosine IV and converted to sinus rhythm. Has been stable since and at this time denies palpitations, SOB, CP. Patient was seen earlier today by PMD and was recommended to start on Macrobid for cistitis like symptoms and a Urinedip that showed moderate leukocytes. ED course EKG: SVT CBC unremarkable Trops normal Adenosine 6 mg IV once IV fluids 100mls/hr 1L PMHx: SVT, NIDDM SHx: Denies tobacco or drugs. ETOH socially SxHx: C/S BTL FHx: Mother DM Allergies: NKDA Present on Admission - Present on Admission Any Indicators Present on Admission: No Review of Systems - Review of Systems All systems: reviewed and no additional remarkable complaints except (those described on HPI) Past Patient History - Past Medical History & Family History Past Medical History?: Yes - Past Social History Smoking Status: Never Smoked Alcohol: Social Drugs: Denies Home Situation {Lives}: With Family - CARDIAC Hx Cardia Arrhythmia: Yes (SVT) Hx Hypercholesterolemia: No Hx Hypertension: No - PULMONARY Hx Asthma: No Hx Chronic Obstructive Pulmonary Disease (COPD): No Hx Pneumonia: Yes - NEUROLOGICAL Hx Seizures: No - HEENT Hx HEENT Problems: No - RENAL Hx Chronic Kidney Disease: No - ENDOCRINE/METABOLIC Hx Endocrine Disorders: Yes - HEMATOLOGICAL/ONCOLOGICAL Hx Blood Disorders: No Hx Human Immunodeficiency Virus (HIV): No - INTEGUMENTARY Hx Dermatological Problems: No - MUSCULOSKELETAL/RHEUMATOLOGICAL Hx Arthritis: Yes - GASTROINTESTINAL Hx Diverticulitis: Yes - GENITOURINARY/GYNECOLOGICAL Hx Genitourinary Disorders: Yes Hx Urinary Tract Infection: Yes - PSYCHIATRIC Hx Substance Use: No - SURGICAL HISTORY Hx Coronary Artery Bypass Graft: No - ANESTHESIA Hx Anesthesia: Yes Hx Anesthesia Reactions: No Hx Malignant Hyperthermia: No Meds Allergies/Adverse Reactions: Allergies Allergy/AdvReac Type Severity Reaction Status Date / Time No Known Allergies Allergy Verified 08/08/17 14:31 Physical Exam - Constitutional Appears: Non-toxic, No Acute Distress - Eye Exam Eye Exam: EOMI, PERRL - ENT Exam ENT Exam: Mucous Membranes Moist - Respiratory Exam Respiratory Exam: Clear to Auscultation Bilateral, NORMAL BREATHING PATTERN. absent: Decreased Breath Sounds, Rales, Wheezes - Cardiovascular Exam Cardiovascular Exam: REGULAR RHYTHM, +S1, +S2. absent: Gallop - GI/Abdominal Exam GI & Abdominal Exam: Normal Bowel Sounds, Soft, Tenderness (Suprapubic, mild). absent: Distended, Guarding, Rebound, Rigid - Extremities Exam Extremities exam: Positive for: full ROM, normal inspection. Negative for: calf tenderness, pedal edema, tenderness - Back Exam Back exam: absent: CVA tenderness (L), CVA tenderness (R) - Neurological Exam Neurological exam: Alert, Oriented x3 - Psychiatric Exam Psychiatric exam: Normal Affect, Normal Mood - Skin Skin Exam: Normal Color, Warm Results - Vital Signs Recent Vital Signs: Last Vital Signs Temp Pulse 92 H 10/09/17 17:08 Resp 12 10/09/17 17:08 BP 119/68 10/09/17 17:08 Pulse Ox 100 10/09/17 17:08 - Labs Result Diagrams: 10/09/17 16:30 10/09/17 16:30 Labs: Laboratory Results - last 24 hr 10/09/17 10/09/17 10/09/17 16:18 16:30 16:30 WBC 9.4 RBC 4.76 Hgb 14.2 Hct 42.2 MCV 88.7 MCH 29.8 MCHC 33.6 RDW 13.8 Plt Count 364 MPV 7.9 Neut % (Auto) 39.7 L Lymph % (Auto) 49.5 H [place] % (Auto) 9.0 Eos % (Auto) 1.6 Baso % (Auto) 0.2 Neut # (Auto) 3.7 Lymph # (Auto) 4.6 H [place] # (Auto) 0.8 Eos # (Auto) 0.2 Baso # (Auto) 0.0 Sodium 139 Potassium 4.0 Chloride 103 Carbon Dioxide 25 Anion Gap 15 BUN 11 Creatinine 0.5 L Est GFR ( Amer) > 60 Est GFR (Non-Af Amer) > 60 POC Glucose (mg/dL) 143 H Random Glucose 131 H Calcium 9.3 Total Bilirubin 0.5 AST 31 ALT 35 Alkaline Phosphatase 155 H D Troponin I < 0.0120 Total Protein 8.7 H Albumin 4.5 Globulin 4.2 H Albumin/Globulin Ratio 1.1 Assessment & Plan - Assessment and Plan (Free Text) Assessment: 51 y/o F with PMhx of SVT and NIDDM is admitted for episode of SVT Recurrent SVT Currently sinus rhythm Episode poss related to noncompliance with meds S/P Adenosine 6 mg iv at ED Restart Metoprolol XL 25 mg daily Had Holter monitor 10/2015 unremarkable Has f/u appt with Cardiology as outpatient for 12/2017 Admits to telemetry for Obs NIDDM chronic Controlled Last HgbA1c 6.9(04/2017) C/w Metformin 500 mg BID Diabetic diet accuchecks AM Cystitis, uncomplicated Udip at the clinic today + for moderate leukocytes Patient c/o suprapubic burning sensation at times Start Macrobid 100 mg PO BID for 5 days F/U UA and UCx DVT prophylaxis Lovenox 40 mg HS
[2017-10-10 00:08] VITALS: RESP 18
[2017-10-10 01:48] LABS: SQUAMOUS EPITHIAL 1 /hpf (0-5); URINE BACTERIA OCC (<OCC); URINE BILIRUBIN NEGATIVE (NEGATIVE); URINE BLOOD SMALL (NEGATIVE); URINE CALCIUM OXALATE CRYSTALS OCC /hpf (<OCC); URINE CLARITY CLOUDY (Clear); URINE COLOR YELLOW (YELLOW); URINE GLUCOSE (UA) NEG (Normal); URINE LEUKOCYTE ESTERASE LARGE Leu/uL (Negative); URINE PROTEIN NEGATIVE (NEGATIVE); URINE UROBILINOGEN 0.2-1.0 mg/dL (0.2-1.0); WBC CLUMPS FEW /hpf
[2017-10-10 05:34] LABS: HEMOGLOBIN 12.4 g/dL (12.0-16.0); MEAN CELL VOLUME 90.1 fl (81.0-99.0); MEAN CORPUSCULAR HEMOGLOBIN 29.7 pg (27.0-31.0); MEAN CORPUSCULAR HGB CONC 32.9 g/dL (33.0-37.0); RBC 4.19 Mil/uL (3.80-5.20); RED CELL DISTRIBUTION WIDTH 13.8 % (11.5-14.5); WHITE BLOOD COUNT 6.3 K/uL (4.8-10.8)
[2017-10-10 05:53] LABS: BLOOD UREA NITROGEN 9 mg/dl (7-17); CALCIUM 8.3 mg/dL (8.4-10.2); GFR AFRICAN-AMERICAN > 60; GFR NON-AFRICAN AMERICAN > 60
[2017-10-10] MEDS ORDERED: Enoxaparin 40 mg Syringe SC SCH (09:00)
[2017-10-10] MEDS ORDERED: Metoprolol Succinate 25 mg XL Tab PO SCH (09:00)
[2017-10-10 12:20] VITALS: BP 104/63; PULSE 54; TEMP 97.4; O2SAT 98
--- NOTE | 2017-10-10 14:31 | CP.PCM.DIS ---
Provider - Provider Date of Admission: 10/09/17 16:21 Attending physician: Charito Ruby MD Primary care physician: Dr. Hutton Time Spent in preparation of Discharge (in minutes): 15 Diagnosis - Discharge Diagnosis (1) SVT (supraventricular tachycardia) Status: Resolved (2) UTI (urinary tract infection) Status: Acute Hospital Course - Lab Results Lab Results: Most Recent Lab Values WBC 6.3 K/uL (4.8-10.8) 10/10/17 04:20 RBC 4.19 Mil/uL (3.80-5.20) 10/10/17 04:20 Hgb 12.4 g/dL (12.0-16.0) 10/10/17 04:20 Hct 37.8 % (34.0-47.0) 10/10/17 04:20 MCV 90.1 fl (81.0-99.0) 10/10/17 04:20 MCH 29.7 pg (27.0-31.0) 10/10/17 04:20 MCHC 32.9 g/dL (33.0-37.0) L 10/10/17 04:20 RDW 13.8 % (11.5-14.5) 10/10/17 04:20 Plt Count 313 K/uL (130-400) 10/10/17 04:20 MPV 7.9 fl (7.2-11.7) 10/09/17 16:30 Neut % (Auto) 39.7 % (50.0-75.0) L 10/09/17 16:30 Lymph % (Auto) 49.5 % (20.0-40.0) H 10/09/17 16:30 King % (Auto) 9.0 % (0.0-10.0) 10/09/17 16:30 Eos % (Auto) 1.6 % (0.0-4.0) 10/09/17 16:30 Baso % (Auto) 0.2 % (0.0-2.0) 10/09/17 16:30 Neut # (Auto) 3.7 K/uL (1.8-7.0) 10/09/17 16:30 Lymph # (Auto) 4.6 K/uL (1.0-4.3) H 10/09/17 16:30 King # (Auto) 0.8 K/uL (0.0-0.8) 10/09/17 16:30 Eos # (Auto) 0.2 K/uL (0.0-0.7) 10/09/17 16:30 Baso # (Auto) 0.0 K/uL (0.0-0.2) 10/09/17 16:30 Sodium 141 mmol/l (132-148) 10/10/17 04:20 Potassium 3.8 MMOL/L (3.6-5.0) 10/10/17 04:20 Chloride 109 mmol/L (98-107) H 10/10/17 04:20 Carbon Dioxide 23 mmol/L (22-30) 10/10/17 04:20 Anion Gap 13 (10-20) 10/10/17 04:20 BUN 9 mg/dl (7-17) 10/10/17 04:20 Creatinine 0.5 mg/dl (0.7-1.2) L 10/10/17 04:20 Est GFR ( Amer) > 60 10/10/17 04:20 Est GFR (Non-Af Amer) > 60 10/10/17 04:20 POC Glucose (mg/dL) 133 mg/dL (65-110) H 10/10/17 11:02 Random Glucose 133 mg/dL (65-105) H 10/10/17 04:20 Calcium 8.3 mg/dL (8.4-10.2) L 10/10/17 04:20 Total Bilirubin 0.5 mg/dl (0.2-1.3) 10/09/17 16:30 AST 31 U/L (14-36) 10/09/17 16:30 ALT 35 U/L (9-52) 10/09/17 16:30 Alkaline Phosphatase 155 U/L (38-126) H D 10/09/17 16:30 Troponin I < 0.0120 ng/mL (0.00-0.120) 10/09/17 16:30 Total Protein 8.7 G/DL (6.3-8.2) H 10/09/17 16:30 Albumin 4.5 g/dL (3.5-5.0) 10/09/17 16:30 Globulin 4.2 gm/dL (2.2-3.9) H 10/09/17 16:30 Albumin/Globulin Ratio 1.1 (1.0-2.1) 10/09/17 16:30 Urine Color Yellow (YELLOW) 10/10/17 01:25 Urine Clarity Cloudy (Clear) 10/10/17 01:25 Urine pH 6.0 (5.0-8.0) 10/10/17 01:25 Ur Specific [place] 1.014 (1.003-1.030) 10/10/17 01:25 Urine Protein Negative mg/dL (NEGATIVE) 10/10/17 01:25 Urine Glucose (UA) Neg mg/dL (Normal) 10/10/17 01:25 Urine Ketones Negative mg/dL (NEGATIVE) 10/10/17 01:25 Urine Blood Small (NEGATIVE) 10/10/17 01:25 Urine Nitrate Negative (NEGATIVE) 10/10/17 01:25 Urine Bilirubin Negative (NEGATIVE) 10/10/17 01:25 Urine Urobilinogen 0.2-1.0 mg/dL (0.2-1.0) 10/10/17 01:25 Ur Leukocyte Esterase Large Josy/uL (Negative) 10/10/17 01:25 Urine RBC (Auto) 12 /hpf (0-3) H 10/10/17 01:25 Urine WBC Clumps (Auto) Few /hpf (NONE) H 10/10/17 01:25 Urine Microscopic WBC 199 /hpf (0-5) H 10/10/17 01:25 Ur Squamous Epith Cells 1 /hpf (0-5) 10/10/17 01:25 Calcium Oxalate Crystal Occ /hpf (<OCC) H 10/10/17 01:25 Urine Bacteria Occ (<OCC) H 10/10/17 01:25 - Hospital Course Hospital Course: 51 y/o F with PMHx of recurrent SVT and NIDDM presented to ED after episode of palpitations and SOB while she was cooking at home this afternoon. Pt ran out of metoprolol 1 month ago. EKG in ED consistent with SVT, improved with Adenosine 6 mg IV. Patient monitored overnight and restarted on metoprolol 25 mg. Repeat EKG WNL. Pt also started on Macrobid 100 BID x 5 days for UTI. Patient to F/U with Dr. Hutton on October 14 at [facility]. Discharge Medications metFORMIN [glucOPHAGE] 500 mg PO BID #60 tab Metoprolol Succinate XL [Toprol XL] 25 mg PO DAILY #30 tab Nitrofurantoin Macrocrystals [Macrobid] 100 mg PO Q12 #14 cap Discharge Exam - Head Exam Head Exam: ATRAUMATIC, NORMAL INSPECTION, NORMOCEPHALIC - Eye Exam Eye Exam: EOMI, Normal appearance Pupil Exam: NORMAL ACCOMODATION, PERRL - ENT Exam ENT Exam: Mucous Membranes Moist - Neck Exam Neck exam: Full Rom - Respiratory Exam Respiratory Exam: Clear to PA & Lateral, NORMAL BREATHING PATTERN, UNREMARKABLE. absent: Respiratory Distress - Cardiovascular Exam Cardiovascular Exam: REGULAR RHYTHM, +S1, +S2. absent: Bradycardia, Tachycardia , Diastolic murmur, Systolic Murmur - GI/Abdominal Exam GI & Abdominal Exam: Normal Bowel Sounds, Soft. absent: Guarding, Tenderness - Back Exam Back exam: absent: CVA tenderness (L), CVA tenderness (R) - Neurological Exam Neurological exam: Alert, Normal Gait, Oriented x3 - Psychiatric Exam Psychiatric exam: Normal Affect, Normal Mood - Skin Skin Exam: Dry, Intact, Normal Color Discharge Plan - Discharge Medications Prescriptions: metFORMIN [glucOPHAGE] 500 mg PO BID #60 tab Metoprolol Succinate XL [Toprol XL] 25 mg PO DAILY #30 tab Nitrofurantoin Macrocrystals [Macrobid] 100 mg PO Q12 #14 cap - Follow Up Plan Condition: FAIR Disposition: HOME/ ROUTINE Instructions: Diabetes Diet , Chest Pain (DC), Diabetes Type 2 (DC), Supraventricular Tachycardia (SVT), Urinary Tract Infection in Women (DC), Urinary Tract Infection in Men (DC), Dysuria (GEN) Additional Instructions: janna saba 2017 a las 11am Referrals: [facility] [Outside]
--- NOTE | 2017-10-14 10:32 | CARD ---
APPROVED REPORT Date of service: 10/10/2017 EKG Measurement Heart [id number] ID [id number] <Conclusion> Normal sinus rhythm Normal ECG
--- NOTE | 2017-10-14 10:37 | CARD ---
APPROVED REPORT Date of service: 10/09/2017 EKG Measurement Heart [id number] <Conclusion> Sinus tachycardia Nonspecific ST abnormality Abnormal ECG
--- NOTE | 2017-10-14 10:37 | CARD ---
APPROVED REPORT Date of service: 10/09/2017 EKG Measurement Heart [id number] <Conclusion> Wide QRS tachycardia Nonspecific intraventricular block Abnormal ECG
== END 2017-10-10 13:35 | disposition home or self-care (01) ==
LOC: H.ER 16:02 → H.ERHOLD 16:21 → H.TEL 20:58
PROVIDERS: ADMIT Family Medicine Geriatric Medicine; ATTEND Family Medicine Geriatric Medicine
DX: I47.1 Supraventricular tachycardia (principal); E11.9 Type 2 diabetes mellitus without complications; N30.90 Cystitis, unspecified without hematuria; M19.90 Unspecified osteoarthritis, unspecified site
CPT/HCPCS: 36415; 71045; 80048; 80053; 81003; 81025; 82948; 84484; 85025; 85027; 87086; 93005; 96374; 99285; G0378; J0153; J1650; J7030

== ENCOUNTER 2017-12-04 19:08 | Emergency (ER) | payer SELFPAY ==
[2017-12-04 19:08] VITALS: BMI 34.7
[2017-12-04 20:00] LABS: BASO % 0.4 % (0.0-2.0); EOS # 0.2 K/uL (0.0-0.7); EOS % 1.8 % (0.0-4.0); HEMOGLOBIN 13.8 g/dL (12.0-16.0); LYMPH % 42.2 % (20.0-40.0); MEAN CELL VOLUME 89.5 fl (81.0-99.0); MEAN CORPUSCULAR HEMOGLOBIN 29.7 pg (27.0-31.0); MEAN CORPUSCULAR HGB CONC 33.2 g/dL (33.0-37.0); MEAN PLATELET VOLUME 8.4 fl (7.2-11.7); MONO # 0.6 K/uL (0.0-0.8); MONO % 6.8 % (0.0-10.0); NEUT # 4.6 K/uL (1.8-7.0); NEUT % 48.8 % (50.0-75.0); RBC 4.64 Mil/uL (3.80-5.20); RED CELL DISTRIBUTION WIDTH 13.8 % (11.5-14.5); WHITE BLOOD COUNT 9.5 K/uL (4.8-10.8)
[2017-12-04 20:13] LABS: BLOOD UREA NITROGEN 19 mg/dl (7-17); GFR NON-AFRICAN AMERICAN > 60
--- NOTE | 2017-12-04 20:31 | ED PDOC ---
HPI: Chest Pain Time Seen by Provider: 12/04/17 19:33 Chief Complaint (Nursing): Shortness Of Breath Chief Complaint (Provider): Palpitations History Per: Patient History/Exam Limitations: no limitations Onset/Duration Of Symptoms: Mins Current Symptoms Are (Timing): Still Present Additional History Per: Patient Additional Complaint(s): 52yo female, history of hypertension, diabetes and SVT, comes to ER with complaints of sudden onset shortness of breath and palpitations. Patient reports she was eating food while at home and her symptoms suddenly started. Patient reports feeling anxious and subsequently came to the ER. She denies any associated chest pain or loss of consciousness. She states she has had similar episodes in the past. PMD: [facility] Past Medical History Reviewed: Historical Data, Nursing Documentation, Vital Signs Vital Signs: Last Vital Signs Temp 98.2 F 12/04/17 22:30 Pulse 74 12/04/17 22:30 Resp 18 12/04/17 22:30 BP 122/63 12/04/17 22:30 Pulse Ox 100 12/04/17 22:30 - Medical History PMH: Arthritis, Cardia Arrhythmia (SVT), Diabetes, Diverticulitis, Hypercholesterolemia, Pneumonia Denies: Asthma, Atrial Fibrillation, CHF, COPD, HIV, HTN, Chronic Kidney Disease, Seizures - Surgical History Surgical History: Denies: CABG, Pacemaker - Family History Family History: States: No Known Family Hx Denies: CAD - Living Arrangements Living Arrangements: With Family - Home Medications Home Medications: Ambulatory Orders Medication Instructions Recorded Calcium Carbonate [Caltrate] 1 tab PO DAILY 10/09/17 Nitrofurantoin Macrocrystals 100 mg PO Q12 #14 cap 10/10/17 [Macrobid] metFORMIN [glucOPHAGE] 500 mg PO BID #60 tab 10/10/17 Metoprolol Succinate XL [Toprol XL] 25 mg PO DAILY #30 tab 12/04/17 - Allergies Allergies/Adverse Reactions: Allergies Allergy/AdvReac Type Severity Reaction Status Date / Time No Known Allergies Allergy Verified 12/04/17 19:17 PATRICK Risk Score for UA/NSTEMI - PATRICK Risk Score Age > 64: NO 3 or more CAD Risk Factors: NO Known CAD (Stenosis greater than 50%): NO Aspirin use in past 7 days: NO Severe Angina: NO EKG ST changes greater than 0.5mm: NO Positive Cardiac Marker: NO PATRICK Score: 0 Risk %: 5% Wells Criteria for PE - Wells Criteria for Pulmonary Embolism Clinical Signs and Symptoms of DVT: No P.E is #1 Diagnosis, or Equally Likely: No Heart Rate >100: No Immobilization at least 3 days;Surgery previous 4 weeks: No Previous, objectively diagnosed PE or DVT: No Hemoptysis: No Malignancy w/treatment within 6 months, or palliative: No Total Score: 0 Review of Systems ROS Statement: Except As Marked, All Systems Reviewed And Found Negative Constitutional: Negative for: Fever, Chills Cardiovascular: Positive for: Palpitations. Negative for: Chest Pain Respiratory: Positive for: Shortness of Breath Gastrointestinal: Negative for: Nausea, Vomiting Neurological: Negative for: Weakness, Numbness Physical Exam - Reviewed Nursing Documentation Reviewed: Yes Vital Signs Reviewed: Yes - Physical Exam Appears: Positive for: Non-toxic, No Acute Distress, Uncomfortable Head Exam: Positive for: ATRAUMATIC, NORMAL INSPECTION, NORMOCEPHALIC Skin: Positive for: Normal Color, Warm, DRY Eye Exam: Positive for: EOMI, Normal appearance, PERRL Neck: Positive for: Normal, Painless ROM Cardiovascular/Chest: Positive for: Regular Rate, Rhythm, Tachycardia. Negative for: Murmur Respiratory: Positive for: Normal Breath Sounds. Negative for: Respiratory Distress Gastrointestinal/Abdominal: Positive for: Normal Exam, Soft Back: Positive for: Normal Inspection Extremity: Positive for: Normal ROM. Negative for: Pedal Edema Neurologic/Psych: Positive for: Alert, Oriented. Negative for: Motor/Sensory Deficits - Laboratory Results Result Diagrams: 12/04/17 19:50 12/04/17 19:50 - ECG ECG: Positive for: Interpreted By Me, Viewed By Me ECG Rhythm: Positive for: SVT, Nonspecific Changes (ST wave changes in inferior leads) Rate: 86 O2 Sat by Pulse Oximetry: 98 (RA) Pulse Ox Interpretation: Normal - Progress Re-evaluation Time: 22:00 Condition: Re-examined, Improved - Critical Care Total Time (In Min): 30 Documented Critical Care: Time excludes all time spent performint seperately billable procedures Medical Decision Making Medical Decision Making: Impression: SVT Differential: A-fib, A-flutter Plan: Initial EKG at 1924: SVT @ 180bpm. Normal QRS. Non-specific ST changes in inferior leads. Patient noted to be in SVT and per ACLS protocol, adenosine started. Successful rate conversion to NSR. 19:48 Repeat EKG: NSR @ 86 BPM Normal QRS. No ST/T wave changes. * Adenosine 6mg IVP * Labs * EKG 20:01 On reassessment, patient reports feeling better and denies any chest pain, shortness of breath or palpitations. Scribe Attestation: Documented by Brandi Ghotra, acting as a scribe for Harry Figueroa MD. Provider Scribe Attestation: All medical record entries made by the Scribe were at my direction and personally dictated by me. I have reviewed the chart and agree that the record accurately reflects my personal performance of the history, physical exam, medical decision making, and the department course for this patient. I have also personally directed, reviewed, and agree with the discharge instructions and disposition. Disposition - Clinical Impression Clinical Impression: SVT (supraventricular tachycardia) - Patient ED Disposition Is Patient to be Admitted: No Doctor Will See Patient In The: Office Counseled Patient/Family Regarding: Studies Performed, Diagnosis, Need For Followup - Disposition Referrals: [facility] [Outside] Disposition: Routine/Home Disposition Time: 22:24 Condition: GOOD Additional Instructions: GI JJ, thank you for letting us take care of you today. Your provider was Harry Figueroa MD and you were treated for SOB. The emergency medical care you received today was directed at your acute symptoms. If you were prescribed any medication, please fill it and take as directed. It may take several days for your symptoms to resolve. Return to the Emergency Department if your symptoms worsen, do not improve, or if you have any other problems. Please contact your doctor or call one of the physicians/clinics you have been referred to that are listed on the Patient Visit Information form that is included in your discharge packet. Bring any paperwork you were given at discharge with you along with any medications you are taking to your follow up visit. Our treatment cannot replace ongoing medical care by a primary care provider outside of the emergency department. Thank you for allowing the [facility] team to be part of your care today. If you had an X-Ray or CT scan: A Radiologist will review the ED reading if any change in treatment is needed we will contact you. If you had a blood, urine, or wound culture: It will take several days for the results, if any change in treatment is needed we will contact you. If you had an STI test: It will take 48 hours for the results. Please call after 1 week if you have not heard back. Prescriptions: Metoprolol Succinate XL [Toprol XL] 25 mg PO DAILY #30 tab Instructions: Supraventricular Tachycardia (SVT) Print Language: URUGUAYAN
[2017-12-05 04:13] VITALS: BP 122/63; RESP 18; TEMP 98.2
--- NOTE | 2017-12-05 08:48 | CARD ---
APPROVED REPORT Date of service: 12/04/2017 <Conclusion> Supraventricular tachycardia Marked ST abnormality, possible inferior subendocardial injury Abnormal ECG
[2017-12-06 16:13] VITALS: PULSE 86; O2SAT 98
== END 2017-12-04 22:40 | disposition home or self-care (01) ==
LOC: H.ER 19:08
DX: I47.1 Supraventricular tachycardia (principal); E11.9 Type 2 diabetes mellitus without complications; E78.00 Pure hypercholesterolemia, unspecified; I10 Essential (primary) hypertension; Z79.84 Long term (current) use of oral hypoglycemic drugs
CPT/HCPCS: 80048; 84484; 85025; 93005; 96374; 99285; J0153

== ENCOUNTER 2017-12-10 13:10 | Emergency (ER) | payer SELFPAY ==
[2017-12-10 13:10] VITALS: BMI 34.7
[2017-12-10 13:41] VITALS: O2SAT 97
[2017-12-10 13:49] LABS: BASO % 0.1 % (0.0-2.0); EOS # 0.1 K/uL (0.0-0.7); EOS % 1.3 % (0.0-4.0); HEMOGLOBIN 13.7 g/dL (12.0-16.0); LYMPH # 4.1 K/uL (1.0-4.3); LYMPH % 48.8 % (20.0-40.0); MEAN CELL VOLUME 89.5 fl (81.0-99.0); MEAN CORPUSCULAR HEMOGLOBIN 30.5 pg (27.0-31.0); MEAN CORPUSCULAR HGB CONC 34.1 g/dL (33.0-37.0); MEAN PLATELET VOLUME 8.7 fl (7.2-11.7); MONO # 0.5 K/uL (0.0-0.8); MONO % 6.3 % (0.0-10.0); NEUT # 3.7 K/uL (1.8-7.0); NEUT % 43.5 % (50.0-75.0); NRBC % 0.2 % (0.0-0.0); RBC 4.49 Mil/uL (3.80-5.20); RED CELL DISTRIBUTION WIDTH 13.6 % (11.5-14.5); WHITE BLOOD COUNT 8.5 K/uL (4.8-10.8)
[2017-12-10 14:19] LABS: BLOOD UREA NITROGEN 10 mg/dl (7-17); CALCIUM 9.1 mg/dL (8.4-10.2); GFR NON-AFRICAN AMERICAN > 60
--- NOTE | 2017-12-10 15:07 | ED PDOC ---
HPI: Chest Pain Time Seen by Provider: 12/10/17 13:24 Chief Complaint (Nursing): Chest Pain Chief Complaint (Provider): Chest Pain History Per: Patient History/Exam Limitations: no limitations Onset/Duration Of Symptoms: Hrs Current Symptoms Are (Timing): Still Present Quality: "Pain" Additional Complaint(s): 52 year old female presents to the ER for an evaluation of palpitation onset hour [employer]. Patient states at work, she felt a sudden onset of palpitation associated with chest pain and shortness of breath. She reports of similar episodes in the past and has been diagnosed with tachycardia. Patient is compliant with her medication for blood pressure, tachycardia and diabetes. She goes to the clinic and has an appointment with the geodetic surveyor on December 30. Patient denies syncope, fever or leg swelling. PMD: Truong Hutton Past Medical History Reviewed: Historical Data, Nursing Documentation, Vital Signs Vital Signs: Last Vital Signs Temp 98 F 12/10/17 15:20 Pulse 68 12/10/17 15:20 Resp 18 12/10/17 15:20 BP 128/90 12/10/17 15:20 Pulse Ox 97 12/10/17 16:16 - Medical History PMH: Arthritis, Cardia Arrhythmia (SVT), Diabetes, Diverticulitis, Hypercholesterolemia, Pneumonia Denies: Asthma, Atrial Fibrillation, CHF, COPD, HIV, HTN, Chronic Kidney Disease, Seizures - Surgical History Surgical History: Denies: CABG, Pacemaker - Family History Family History: States: Unknown Family Hx Denies: CAD - Social History Current smoker - smoking cessation education provided: No Alcohol: None Drugs: Denies - Home Medications Home Medications: Ambulatory Orders Medication Instructions Recorded Metoprolol Succinate XL [Toprol XL] 25 mg PO DAILY #30 tab 12/04/17 Sertraline [Zoloft] 50 mg PO HS 12/10/17 metFORMIN [glucOPHAGE] 500 mg PO BID 12/10/17 - Allergies Allergies/Adverse Reactions: Allergies Allergy/AdvReac Type Severity Reaction Status Date / Time No Known Allergies Allergy Verified 12/04/17 19:17 PATRICK Risk Score for UA/NSTEMI - PATRICK Risk Score Age > 64: NO 3 or more CAD Risk Factors: NO Known CAD (Stenosis greater than 50%): NO Aspirin use in past 7 days: NO Severe Angina: NO EKG ST changes greater than 0.5mm: NO Positive Cardiac Marker: NO PATRICK Score: 0 Risk %: 5% Wells Criteria for PE - Wells Criteria for Pulmonary Embolism Clinical Signs and Symptoms of DVT: No P.E is #1 Diagnosis, or Equally Likely: No Heart Rate >100: No Immobilization at least 3 days;Surgery previous 4 weeks: No Previous, objectively diagnosed PE or DVT: No Hemoptysis: No Malignancy w/treatment within 6 months, or palliative: No Total Score: 0 Review of Systems ROS Statement: Except As Marked, All Systems Reviewed And Found Negative Constitutional: Negative for: Fever, Chills Cardiovascular: Positive for: Chest Pain, Palpitations Respiratory: Positive for: Shortness of Breath Musculoskeletal: Negative for: Leg Pain Neurological: Negative for: Other (syncope) Physical Exam - Reviewed Nursing Documentation Reviewed: Yes Vital Signs Reviewed: Yes - Physical Exam Appears: Positive for: Non-toxic, Uncomfortable Head Exam: Positive for: ATRAUMATIC, NORMAL INSPECTION Skin: Positive for: Warm, Dry Eye Exam: Positive for: EOMI, PERRL ENT: Positive for: Normal ENT Inspection Neck: Positive for: Painless ROM, Supple Cardiovascular/Chest: Positive for: Regular Rate, Rhythm, Tachycardia. Negative for: Edema, JVD, Murmur Respiratory: Positive for: Normal Breath Sounds. Negative for: Wheezing, Respiratory Distress Gastrointestinal/Abdominal: Positive for: Soft. Negative for: Tenderness, Distended Extremity: Positive for: Normal ROM Neurologic/Psych: Positive for: Alert, Oriented - Laboratory Results Result Diagrams: 12/10/17 13:20 12/10/17 13:20 - ECG O2 Sat by Pulse Oximetry: 97 (RA) Pulse Ox Interpretation: Normal - Progress Re-evaluation Time: 14:30 Condition: Re-examined, Improved - Critical Care Total Time (In Min): 30 Medical Decision Making Medical Decision Making: Time: 1310 Initial Impression: Tachycardia, Chest Pain, SVT Initial Plan: --EKG --BMP --Troponin I --CBC w/ Differential --Adenosine 6mg --Patternmaker Pressure Cast --Reevaluation 1st EKbpm, sinus tachycardia, ST & T wave abnormality When patient arrived, ACLS care started for SVT. After giving Adenosine 6mg, patient's EKG was normal 2nd EKbpm, normal sinus rhythm, normal QRS, normal ST segments Patient is feeling well and denies chest pain. Clinical Impression: SVT Upon provider evaluation patient is medically stable, and requires no further treatment in the ED at this time. Patient will be discharged. Counseling was provided and all questions were answered regarding diagnosis and need for follow up with clinic. There is agreement to discharge plan. Return if symptoms persist or worsen. Scribe Attestation: Documented by Amy Acevedo, acting as a scribe for Harry Figueroa MD Provider Scribe Attestation: All medical record entries made by the Scribe were at my direction and personally dictated by me. I have reviewed the chart and agree that the record accurately reflects my personal performance of the history, physical exam, medical decision making, and the department course for this patient. I have also personally directed, reviewed, and agree with the discharge instructions and disposition. Disposition - Clinical Impression Clinical Impression: SVT (supraventricular tachycardia) - Patient ED Disposition Is Patient to be Admitted: No Doctor Will See Patient In The: Office Counseled Patient/Family Regarding: Studies Performed, Diagnosis, Need For Followup - Disposition Referrals: [facility] [Outside] Disposition: Routine/Home Disposition Time: 14:35 Condition: GOOD Additional Instructions: GI JJ, thank you for letting us take care of you today. Your provider was Harry Figueroa MD and you were treated for chest pain. The emergency medical care you received today was directed at your acute symptoms. If you were prescribed any medication, please fill it and take as directed. It may take several days for your symptoms to resolve. Return to the Emergency Department if your symptoms worsen, do not improve, or if you have any other problems. Please contact your doctor or call one of the physicians/clinics you have been referred to that are listed on the Patient Visit Information form that is included in your discharge packet. Bring any paperwork you were given at discharge with you along with any medications you are taking to your follow up visit. Our treatment cannot replace ongoing medical care by a primary care provider outside of the emergency department. Thank you for allowing the [facility] team to be part of your care today. Instructions: Supraventricular Tachycardia (SVT) Print Language: GERMAN
[2017-12-10 15:21] VITALS: BP 128/90; PULSE 68; RESP 18; TEMP 98
--- NOTE | 2017-12-10 22:44 | CARD ---
APPROVED REPORT Date of service: 12/10/2017 EKG Measurement Heart [id number] <Conclusion> Normal sinus rhythm with sinus arrhythmia Normal ECG
--- NOTE | 2017-12-14 21:36 | CARD ---
APPROVED REPORT Date of service: 12/10/2017 <Conclusion> Sinus tachycardia ST & T wave abnormality, consider inferolateral ischemia Abnormal ECG
== END 2017-12-10 15:21 | disposition home or self-care (01) ==
LOC: H.ER 13:10
DX: I47.1 Supraventricular tachycardia (principal); E11.9 Type 2 diabetes mellitus without complications; Z79.84 Long term (current) use of oral hypoglycemic drugs; E78.00 Pure hypercholesterolemia, unspecified
CPT/HCPCS: 80048; 84484; 85025; 93005; 96374; 99284; J0153

== ENCOUNTER 2018-03-26 12:52 | Emergency (ER) | payer SELFPAY ==
[2018-03-26 12:53] VITALS: BMI 34.7
[2018-03-26] MEDS ORDERED: Sodium Chloride 0.9% 1,000 ML IV STA (13:20)
--- NOTE | 2018-03-26 13:21 | ED PDOC ---
HPI: Chest Pain Time Seen by Provider: 03/26/18 13:12 Chief Complaint (Nursing): Palpitations Chief Complaint (Provider): palpitations History Per: Patient History/Exam Limitations: no limitations Onset/Duration Of Symptoms: Days (today) Additional Complaint(s): Pt. was at work and felt light-headed, chest pain, palpitations, dyspnea. Daughter called and brought her to the ER. Has had similar many times in the past. No headaches, abd pain, nausea, vomit, leg pain. On metoprolol and metf ormin. Past Medical History Reviewed: Vital Signs Vital Signs: Last Vital Signs Temp 97.6 F 03/26/18 13:04 Pulse 177 H 03/26/18 13:04 Resp 16 03/26/18 13:04 BP Pulse Ox 99 03/26/18 13:04 - Medical History PMH: Arthritis, Cardia Arrhythmia (SVT), Diabetes, Diverticulitis, Hypercholesterolemia, Pneumonia Denies: Asthma, Atrial Fibrillation, CHF, COPD, HIV, HTN, Chronic Kidney Disease, Seizures - Surgical History Surgical History: Denies: CABG, Pacemaker - Family History Family History: States: Unknown Family Hx Denies: CAD - Living Arrangements Living Arrangements: With Family - Home Medications Home Medications: Ambulatory Orders Medication Instructions Recorded MetFORMIN ER [Glucophage XR] 500 mg PO BID 03/26/18 Metoprolol Succinate XL [Toprol XL] 50 mg PO DAILY 03/26/18 - Allergies Allergies/Adverse Reactions: Allergies Allergy/AdvReac Type Severity Reaction Status Date / Time No Known Allergies Allergy Verified 03/26/18 13:03 Review of Systems ROS Statement: Except As Marked, All Systems Reviewed And Found Negative Constitutional: Positive for: Weakness Cardiovascular: Positive for: Chest Pain, Palpitations Neurological: Positive for: Weakness, Dizziness Physical Exam - Reviewed Nursing Documentation Reviewed: Yes Vital Signs Reviewed: Yes - Physical Exam Appears: Positive for: Uncomfortable Head Exam: Positive for: ATRAUMATIC, NORMAL INSPECTION, NORMOCEPHALIC Skin: Positive for: Normal Color, Warm, DRY Eye Exam: Positive for: EOMI, Normal appearance, PERRL ENT: Positive for: Normal ENT Inspection Neck: Positive for: Normal, Painless ROM Cardiovascular/Chest: Positive for: Tachycardia. Negative for: Edema Respiratory: Positive for: CNT, Normal Breath Sounds Gastrointestinal/Abdominal: Positive for: Normal Exam, Soft. Negative for: Tenderness Back: Positive for: Normal Inspection. Negative for: L CVA Tenderness, R CVA Tenderness Extremity: Positive for: Normal ROM. Negative for: Tenderness, Pedal Edema Neurologic/Psych: Positive for: Alert, Oriented - Laboratory Results Result Diagrams: 03/26/18 13:30 03/26/18 13:30 Interpretation Of Abn Labs: 172 glucose - ECG ECG: Positive for: Interpreted By Me, Viewed By Me Interpretation Of Abn EKG: ekg 1: SVT. ekg 2: post adenosine: NSR. O2 Sat by Pulse Oximetry: 99 Pulse Ox Interpretation: Normal - Radiology X-Ray: Interpreted by Me, Viewed By Me X-Ray Interpretation: No Acute Disease - Progress ED Course And Treament: 1518: Stable. AAOx3. Pain free. Tolerated PO. Fu with pcp. SVT multiple times in the past. Fu with pcp and cards. Disposition - Clinical Impression Clinical Impression: SVT (supraventricular tachycardia) - Patient ED Disposition Is Patient to be Admitted: No Counseled Patient/Family Regarding: Studies Performed, Diagnosis, Need For Followup - Disposition Referrals: [facility] [Outside] - 03/27/18 Gasper Matthew MD [Staff Provider] - 03/27/18 Disposition: Routine/Home Disposition Time: 15:20 Condition: STABLE Additional Instructions: Return if not better in 3 days. Instructions: Supraventricular Tachycardia (SVT) Forms: [facility] (N[place]ien) Print Language: ARABIC
[2018-03-26 13:42] LABS: BASO # 0.1 K/uL (0.0-0.2); BASO % 0.7 % (0.0-2.0); EOS # 0.2 K/uL (0.0-0.7); EOS % 1.9 % (0.0-4.0); HEMOGLOBIN 13.8 g/dL (12.0-16.0); LYMPH % 38.6 % (20.0-40.0); MEAN CELL VOLUME 90.6 fl (81.0-99.0); MEAN CORPUSCULAR HEMOGLOBIN 29.7 pg (27.0-31.0); MEAN CORPUSCULAR HGB CONC 32.8 g/dL (33.0-37.0); MEAN PLATELET VOLUME 8.5 fl (7.2-11.7); MONO # 0.7 K/uL (0.0-0.8); NEUT # 5.4 K/uL (1.8-7.0); NEUT % 51.8 % (50.0-75.0); NRBC % 0.1 % (0.0-0.0); RBC 4.64 Mil/uL (3.80-5.20); RED CELL DISTRIBUTION WIDTH 13.3 % (11.5-14.5); WHITE BLOOD COUNT 10.5 K/uL (4.8-10.8)
[2018-03-26 13:50] VITALS: TEMP 98
[2018-03-26 13:53] LABS: INR 0.9; PROTHROMBIN TIME 10.4 Seconds (9.8-13.1)
[2018-03-26 13:56] LABS: ALBUMIN 4.1 g/dL (3.5-5.0); ALT/SGPT 21 U/L (9-52); AST/SGOT 26 U/L (14-36); BLOOD UREA NITROGEN 15 mg/dl (7-17); CALCIUM 8.7 mg/dL (8.4-10.2); GFR NON-AFRICAN AMERICAN > 60; PARTIAL THROMBOPLASTIN TIME 31.9 Seconds (25.6-37.1)
[2018-03-26 14:07] LABS: B-TYPE NATRIURETIC PEPTIDE 123 pg/ml (0-900)
[2018-03-26 14:40] VITALS: O2SAT 99
--- NOTE | 2018-03-26 15:14 | RAD ---
Date of service: 03/26/2018 HISTORY: dyspnea COMPARISON: 10/09/2017 FINDINGS: LUNGS: No active pulmonary disease. PLEURA: No significant pleural effusion identified, no pneumothorax apparent. CARDIOVASCULAR: No atherosclerotic calcification present Normal. OSSEOUS STRUCTURES: No significant abnormalities. VISUALIZED UPPER ABDOMEN: Normal. OTHER FINDINGS: None. IMPRESSION: No active disease. No significant interval change compared to the prior examination(s). Concordant results with the preliminary interpretation rendered by the emergency department physician procedure.
[2018-03-26 19:29] VITALS: BP 118/67; PULSE 78; RESP 18
--- NOTE | 2018-03-26 22:23 | CARD ---
APPROVED REPORT Date of service: 03/26/2018 EKG Measurement Heart [id number] <Conclusion> Normal sinus rhythm with sinus arrhythmia Nonspecific ST abnormality Abnormal ECG
--- NOTE | 2018-03-26 22:25 | CARD ---
APPROVED REPORT Date of service: 03/26/2018 EKG Measurement Heart [id number] <Conclusion> Supraventricular tachycardia ST depression, consider subendocardial injury Nonspecific T wave abnormality Abnormal ECG
== END 2018-03-26 16:00 | disposition home or self-care (01) ==
LOC: H.ER 12:52
DX: I47.1 Supraventricular tachycardia (principal); E11.9 Type 2 diabetes mellitus without complications; E78.00 Pure hypercholesterolemia, unspecified; Z79.84 Long term (current) use of oral hypoglycemic drugs; Z79.899 Other long term (current) drug therapy
CPT/HCPCS: 71045; 80053; 83735; 83880; 84100; 84484; 85025; 85610; 85730; 93005; 96374; 99283; J0153; J7030